=== PATIENT | female | born 1990 | race Caucasian/White ===

== ENCOUNTER 2021-10-11 08:10 | Emergency (ER) | payer BC, SELFPAY ==
--- NOTE | ~2021-10-11 | CT_ITS ---
EXAMINATION: CT abdomen pelvis w con DATE: 10/11/2021 09:57 INDICATION: Abdominal pain. TECHNIQUE: Computed tomography (CT) of the abdomen and pelvis was performed with 100 mL Omnipaque 350 intravenous contrast. Automated exposure control and iterative reconstruction technique were employe d. The dose-length product was 317.20 mGy-cm. COMPARISON: None. FINDINGS: The visualized portions of the lung bases demonstrate minimal atelectasis on the left. No p leural effusion. The heart size is normal. No pericardial effusion. The liver, gallbladder, spleen, p ancreas, adrenal glands, and kidneys are normal. There are no dilated loops of bowel. The appendix is normal. There are no pathologically enlarged lymph nodes. There is physiologic fluid in the pelvis. There is a 3.4 cm cyst in right ovary, likely a follicular cyst. The bones are unremarkable. IMPRESSION: 1. 3.4 cm cyst in right ovary, likely a follicular cyst. Reviewed, dictated and finalized at location B.
[2021-10-11 08:15] VITALS: BP 156/105; PULSE 83; RESP 18; TEMP 37; O2SAT 100
--- NOTE | 2021-10-11 08:26 | ED.NAVMDI ---
HPI - Nausea/Vomiting/Diarrhea General Chief complaint: Nausea/Vomiting/Diarrhea Stated complaint: n/v/d Time Seen by Provider: 10/11/21 08:13 Source: RN notes reviewed History of Present Illness HPI Narrative: Patient presents to emergency department from home for nausea vomiting. Patient is for the past week she has been having numerous episodes of nausea vomiting she states these normally occur between 11 PM and 6 AM in the morning and she is vomiting 3-4 times a day states is associated with epigastric abdominal pain described as aching and burning patient states that she is frequently throwing up what she describes as bright red blood she denies any fevers or chills chest pain, shortness of breath diarrhea or any other symptoms. Related Data Allergies Allergy/AdvReac Type Severity Reaction Status Date / Time No Known Allergies Allergy Mild Verified 10/11/21 08:22 Review of Systems Review of Systems: Gen.: Denies fevers or chills ENT: Denies congestion Respiratory: Denies shortness of breath or cough CV: Denies chest pain or palpitations GI: See HPI Musculoskeletal: Denies back pain or muscle pain Neuro: Denies numbness, tingling, weakness or focal weakness Skin: Denies rash Except as documented, all other systems reviewed and negative PMFSH Past Medical History Medical History (Updated 10/11/21 @ 11:39 by Rubin Whitten DO) Patient denies significant medical history Social History Social History (Updated 10/11/21 @ 08:28 by Rubin Whitten DO) Smoking status: Never smoker Exam Narrative: APPEARANCE: No acute distress, nontoxic, resting in bed HEENT: Normocephalic, atraumatic, OMM RESPIRATORY: No respiratory distress, clear to auscultation bilaterally with no rhonchi wheezing or rales CARDIOVASCULAR: RRR s murmur ABDOMINAL: Soft nondistended tender palpation epigastric and right upper quadrant left upper quadrant no tenderness right lower quadrant left lower quadrant no rebound or guarding Rectal: No hemorrhoids or fissures no active bleeding soft light brown stool that is Hemoccult negative MUSCULOSKELETAl: Moves all extremities. No clubbing, cyanosis or edema. NEURO: Awake and alert. Following commands, speech normal, no focal deficits SKIN:: Warm, dry. Normal Color PSYCHIATRIC: Normal affect/mood Course Course Emergency Course: Patient states symptoms are improved with GI cocktail Dr. Bowles agrees with plan for discharge with follow-up as an outpatient with plan for EGD Patient states that they are feeling much better at this time. States abdominal pain has resolved. Repeat abdominal exam shows the patient's abdomen to be soft and nontender. Discussed with patient results of workup and diagnosis. Discussed need for follow-up with primary care physician, reasons to return to the emergency department in proper use of medication. Patient understands and agrees to current treatment plan discussed with patient right ovarian cyst we will follow-up with her VP DATA Vital Signs Vital signs: Vital Signs Temperature 98.6 F 10/11/21 08:15 Pulse Rate 83 10/11/21 08:15 Respiratory Rate 18 10/11/21 08:15 Blood Pressure 156/105 H 10/11/21 08:15 Pulse Oximetry 100 10/11/21 08:15 Temperature 97.6 F 10/11/21 10:09 Pulse Rate 65 10/11/21 10:09 Respiratory Rate 18 10/11/21 10:09 Blood Pressure 121/91 H 10/11/21 10:09 Pulse Oximetry 100 10/11/21 10:09 MDM - Nausea/Vomiting/Diarrhea MDM Narrative Medical decision making narrative: Patient's abdomen is soft without significant pain or signs of surgical abdomen on serial exams. Lab and x-ray evaluations are reviewed and patient is felt to be a reasonable candidate for outpatient management. Patient was instructed as to limitations of x-ray and laboratory evaluation and encouraged to return to ED or primary physician for repeat exam in 12 hours if continued or worsening pain patient with questionable blood in emesis for the past 1 week
[2021-10-11] MEDS: ONDANSETRON INJ 4 MG/2 ML VIAL IV PUSH (08:42)
[2021-10-11] MEDS: SODIUM CHLORIDE 0.9% IV 1,000 ML 999 ML IV CONT (08:42)
[2021-10-11 08:58] LABS: Basophils Percent Auto 0.5 % (0.2-1.2); Eosinophils Absolute Auto 0.1 K/mm3 (0-0.3); Eosinophils Percent Auto 1.9 % (0-4.4); Hematocrit 42.2 % (37.0-47.0); Hemoglobin 13.7 g/dL (12.0-15.0); Immature Granulocyte Absolute 0.01 K/mm3 (0.00-0.031); Immature Granulocyte Percent A 0.2 % (0-0.5); Lymphocytes Percent Auto 25.6 % (18.3-44.2); Mean Corpuscular HGB Conc 32.5 g/dl (32-36); Mean Corpuscular Hemoglobin 32.5 pg (26-34); Mean Corpuscular Volume 100.2 fl (80-100); Monocytes Absolute Auto 0.5 K/mm3 (0.1-0.6); Monocytes Percent Auto 7.8 % (2.6-8.5); Neutrophils Absolute Auto 3.8 K/mm3 (1.3-6.7); Platelet Count Result 309 k/mm3 (150-375); Red Blood Count 4.21 M/mm3 (4.2-5.4); Red Cell Distribution Width 14.1 % (11.5-14.5); White Blood Count 5.9 K/mm3 (4.5-10.0)
[2021-10-11 09:00] LABS: Appearance Urine Clear (Clear); Bilirubin Urine 1+ (Negative); Blood Urine 1+ (Negative); Color Urine Yellow (Yellow); Glucose Urine UA Negative (Negative); Ketones Urine 1+ mg/dL (Negative); Leukocyte Esterase Ur Negative LEU/UL (Negative); Nitrate Urine Negative (Negative); Protein Urine Trace mg/dL (Negative); Specific Grav Ur >= 1.030 (1.001-1.035); Urobilinogen Urine 0.2 mg/dL (<2.0)
[2021-10-11 09:02] LABS: Mucus Urine Heavy /lpf; Squamous Epithelial Cell Urine Many /hpf (Few)
[2021-10-11 09:10] LABS: Alanine Aminotransferase 22 U/L (4-35); Albumin Level 4.2 g/dL (3.5-5.1); Alkaline Phosphatase 62 U/L (38-126); Anion Gap 6 mmol/L (8-16); Aspartate Amino Transferase 50 U/L (14-36); Bilirubin,Total 1.8 mg/dL (0.2-1.3); Blood Urea Nitrogen 11 mg/dL (7-17); Calcium 8.6 mg/dL (8.4-10.2); Carbon Dioxide 25 mmol/L (22-30); Chloride 104 mmol/L (98-107); Estimated CRCL calculation 129 ml/min; Estimated Glomerular Filt Rate > 60; Glucose 100 mg/dL (65-110); Lipase 33 U/L (23-300); Sodium 135 mmol/L (137-145)
[2021-10-11 09:17] LABS: Add Urine Microscopic? YES
[2021-10-11 09:38] LABS: Prothrombin Time 13.2 Seconds (11.1-14.7)
[2021-10-11 09:39] LABS: Partial Thromboplastin Time 29.3 SECONDS (22.3-36.8)
[2021-10-11 10:09] VITALS: BP 121/91; PULSE 65; RESP 18; TEMP 36.4; O2SAT 100
[2021-10-11] MEDS: PANTOPRAZOLE SODIUM IV 40 MG VIAL IV PUSH (10:49)
[2021-10-11] MEDS: POTASSIUM CHLORIDE 20 MEQ TABLET 40 MEQ PO (11:41)
[2021-10-11 11:49] VITALS: BP 130/103; PULSE 81; RESP 18; O2SAT 100
== END 2021-10-11 11:51 | disposition home or self-care (01) ==
PROVIDERS: Emergency Provider Emergency Medicine
DX: N83.201 Unspecified ovarian cyst, right side (principal); R10.13 Epigastric pain
CPT/HCPCS: 36415; 74177; 80053; 81001; 81025; 83690; 85025; 85610; 85730; 86850; 86900; 86901; 96361; 96374; 96375; 99284; A9270; C9113; J2405; J7030; Q9967

== ENCOUNTER 2021-12-15 01:58 | Day surgery (SDC) | payer BC, SELFPAY ==
[2021-11-30 15:45] VITALS: BMI 26.9
[2021-12-15 07:15] VITALS: BP 123/82; PULSE 83; RESP 18; TEMP 36.4; O2SAT 100
[2021-12-15] MEDS: LACTATED RINGERS 1,000 ML 150 ML IV CONT (07:27)
--- NOTE | 2021-12-15 07:37 | P.PNAN_ITS ---
Anes - Initial Pre Proc Eval Procedure: Operation Date: 12/15/21 08:30 Proposed Procedures p Esophagogastroduodenoscopy - Hamzah Sherman MD Date/Time: 12/15/21 07:37 Surgeon: Hamzah Sherman MD Pre Op Diagnosis: nausea, vomiting Patient Data Age: 31 Gender: F Height: 1.7 m Weight: 81.2 kg Last Vital Signs Temp 36.4 C L 12/15/21 07:15 Pulse 83 12/15/21 07:15 Resp 18 12/15/21 07:15 BP 123/82 12/15/21 07:15 Pulse Ox 100 12/15/21 07:15 O2 Del Method Room Air 12/15/21 07:15 Allergies Allergy/AdvReac Type Severity Reaction Status Date / Time No Known Allergies Allergy Mild Verified 12/15/21 07:13 Home Medications Medication Instructions Recorded Confirmed Type ondansetron 4 mg disintegrating 4 mg PO Q6H PRN nausea and 10/11/21 11/30/21 Rx tablet vomiting #10 tabs pantoprazole 40 mg tablet,delayed 40 mg PO HS #20 tabs 10/11/21 11/30/21 Rx release (Protonix) Patient hx anesthesia problems: none Family hx anesthesia problems: none Results Review: All pre-operative results and documents have been reviewed as part of the pre- operative evaluation. [facility] Past Medical History Medical History (Updated 11/18/21 @ 10:06 by Hamzah Sherman MD) Bloody emesis Marijuana smoker Nausea and vomiting in adult Patient denies significant medical history Social History Social History (Updated 11/18/21 @ 09:41 by Mervat Quesada CMA) Smoking packs per day: 0.5 Smoking cigarettes per day: 10.0 Smoking status: Light tobacco smoker Tobacco type: cigarettes Alcohol intake: current Alcohol use details: socially Substance use: current Substance use type: marijuana Other substance usage details: twice a day Living arrangements: with family Spiritual care concerns: No Anes - Eval Final PreProcedure Day of Procedure 12/15/21 07:37 Patient weight: overweight Heart: regular rate and rhythm Lungs: clear to auscultation and normal air movement Airway: Mallampati scale class II Neurological: alert and oriented Last oral intake: >/= 8 hours ASA classification: II Emergent: no Anesthetic plan: proceed Anesthesia type and monitoring: general GIVS Results Review: All pre-operative results and documents have been reviewed as part of the pre-o perative evaluation. Informed Consent: The patient's anesthetic plan and its attendant risks and benefits were discussed with the patient/family/POA. Questions were solicited and answers provided to the satisfaction of the patient/family/POA.
--- NOTE | 2021-12-15 08:29 | WPDHPUPDATE1 ---
History and Physical Update Update Date/Time: 12/15/21 08:29 History and Physical has been reviewed, including an updated exam of the patient. There are NO changes in the patient's condition. Risks, benefits, and alternatives have been discussed and questions answered. Patient agrees to proceed with procedure.
[2021-12-15] MEDS: BENZOCAINE (*SP) 60 ML SPRAY CAN (HURRICAINE) 1 SPRAY MUCOUS MEM (08:33)
[2021-12-15 08:46] VITALS: BP 109/74; PULSE 69; RESP 19; O2SAT 100
[2021-12-15 08:56] VITALS: BP 113/80; PULSE 67; RESP 19; O2SAT 100
[2021-12-15 09:06] VITALS: BP 126/90; PULSE 62; RESP 22; O2SAT 100
== END 2021-12-15 09:12 | disposition home or self-care (01) ==
PROVIDERS: Visit Provider Internal Medicine Gastroenterology
PROC: 0DJ08ZZ Inspection of Upper Intestinal Tract, Via Natural or Artificial Opening Endoscopic (ICD-10-PCS; CPT 43235; principal; 2021-12-15 08:30)
DX: K29.50 Unspecified chronic gastritis without bleeding (principal); F17.210 Nicotine dependence, cigarettes, uncomplicated; F12.90 Cannabis use, unspecified, uncomplicated
CPT/HCPCS: 43239; 88305; J2001; J2704; J7120

== ENCOUNTER 2023-03-16 12:28 | Emergency (ER) | payer BC, SELFPAY ==
[2023-03-16 12:44] VITALS: BP 132/85; PULSE 88; RESP 16; TEMP 36.6; O2SAT 100
--- NOTE | 2023-03-16 14:04 | ED.FEMALEGU ---
HPI - Female Genitourinary General Chief complaint: Urogenital-Female Stated complaint: UTI Time Seen by Provider: 03/16/23 13:50 Source: patient Mode of arrival: ambulatory Limitations: no limitations History of Present Illness HPI Narrative: 33 year old female who presents to [facility] care with complaints of 2.5 weeks urinary tract infection symptoms which include CVA discomfort, urinary pressure has been incontinent X2, never had urinary tract infection before. patient reports that she has not had a fever,chill or sweats, denies any present nausea or vomiting or diarrhea.Patient has not taken any OTC medications for her complaints. MD elicited complaint: dysuria, UTI and back pain Onset (ago): week(s) (2.5) Location of symptoms: perineum Severity: mild Quality of pain: other (pressure) Vaginal discharge: none Vaginal bleeding: none Treatment prior to arrival: none Related Data Allergies Allergy/AdvReac Type Severity Reaction Status Date / Time No Known Allergies Allergy Mild Verified 03/16/23 14:12 Review of Systems Review of Systems: CONSTITUTIONAL: Denies fever, chills, or sweats. CARDIOVASCULAR: Denies chest pain, palpitations, or edema. RESPIRATORY: Denies cough or dyspnea. GASTROINTESTINAL: Denies abdominal pain, nausea, vomiting, or diarrhea. GENITOURINARY: Reports dysuria, frequency, urgency. reports flank pain no hematuria. SKIN: Denies rash or itching. MUSCULOSKELETAL: Denies back pain or myalgia. reports CVA tenderness NEUROLOGIC: Denies headache All systems reviewed & are unremarkable except as noted in HPI and below PMFSH Past Medical History Medical History Bloody emesis Marijuana smoker Nausea and vomiting in adult Patient denies significant medical history Social History Social History Smoking packs per day: 0.5 Smoking cigarettes per day: 10.0 Smoking status: Light tobacco smoker Tobacco type: cigarettes Alcohol intake: current Alcohol use details: socially Substance use: current Substance use type: marijuana Other substance usage details: twice a day Living arrangements: with family Spiritual care concerns: No Comments At time of signature, agree with nursing past medical, surgical, social and family history. There is no relevant family history pertinent to the presenting complaint Exam Narrative: GENERAL: Well-appearing, well-nourished, and in no acute distress. HEAD: Normocephalic, atraumatic. NECK: Supple. no lymphadenopathy CHEST: Clear to auscultation. No respiratory distress. HEART: Regular rate and rhythm. No murmur heard. Normal peripheral pulses. ABDOMEN: Soft, nontender, nondistended, normal active bowel sounds. positive CVA tenderness positive for dysuria and urgency with some frequency of urination EXTREMITIES: Normal range of motion. No edema. SKIN: Warm, dry, no rash. NEURO: No focal deficits. Alert and oriented x3. Course Course Emergency Course: Patient is aware of diagnosis, understands and agrees to treatment plan.? Anticipatory guidance given.? Patient agrees to follow-up as directed and is aware of reasons to seek care at the emergency department. Portions of this record may have been created with voice recognition software Level of Care: Express Care Visit Vital Signs Vital signs: Vital Signs Temperature 36.6 C 03/16/23 12:44 Pulse Rate 88 03/16/23 12:44 Respiratory Rate 16 03/16/23 12:44 Blood Pressure 132/85 03/16/23 12:44 Pulse Oximetry 100 03/16/23 12:44 Oxygen Delivery Room Air 03/16/23 12:44 Temperature 36.6 C 03/16/23 12:44 Pulse Rate 88 03/16/23 12:44 Respiratory Rate 16 03/16/23 12:44 Blood Pressure 132/85 03/16/23 12:44 Pulse Oximetry 100 03/16/23 12:44 Oxygen Delivery Room Air 03/16/23 12:44 MDM - Female Genitourinary MDM Narrative Medical decision making
== END 2023-03-16 14:15 | disposition home or self-care (01) ==
PROVIDERS: Emergency Provider Registered Nurse
DX: N39.0 Urinary tract infection, site not specified (principal); F17.210 Nicotine dependence, cigarettes, uncomplicated
CPT/HCPCS: 81003; 81025; 87086; 87088; 99213; G0463

== ENCOUNTER 2023-06-17 15:02 | Emergency (ER) | payer BC, SELFPAY ==
[2023-06-17 15:19] VITALS: BP 147/101; PULSE 65; RESP 16; TEMP 36.2; O2SAT 100
--- NOTE | 2023-06-17 15:34 | ED.GENADULT ---
HPI - General Adult General Chief complaint: Nausea/Vomiting/Diarrhea Stated complaint: SOB/Vomiting Time Seen by Provider: 06/17/23 15:34 Source: patient, RN notes reviewed and old records reviewed Mode of arrival: ambulatory Limitations: no limitations History of Present Illness HPI narrative: 33-year-old female presents to the [facility] with vague symptoms of shortness of breath that started when she woke up this morning. nausea, intermittent facial numbness that started about an hour prior to arrival. Patient is denying any symptoms currently. States that she does smoke marijuana. Denies any other drug use Denies urinary symptoms Denies chest pain or abdominal pain has vomited once in clinic Onset (ago): day(s) (1) Related Data Home Medications Medication Instructions Recorded Confirmed No Home Medications 06/17/23 06/17/23 Allergies Allergy/AdvReac Type Severity Reaction Status Date / Time No Known Allergies Allergy Mild Verified 06/17/23 15:14 Review of Systems Review of Systems: All systems reviewed & are unremarkable except as noted in HPI and below Constitutional: Constitutional: Reports no additional constitutional complaints Eyes: Eyes: Reports no additional eye complaints ENT: Reports system reviewed and no additional complaints, except as documented Cardiovascular: Cardiovascular: Reports no additional cardiovascular complaints, Denies chest pain and Denies dyspnea Respiratory: Respiratory: Reports as per HPI, Denies chest congestion, Denies cough and Reports dyspnea Gastrointestinal: Gastrointestinal: Reports no additional gastrointestinal complaints, Denies abdominal pain, Denies nausea and Denies vomiting Musculoskeletal: Musculoskeletal: Reports no additional musculoskeletal complaints Integumentary/Breasts: Skin/Breast: Reports system reviewed and no additional complaints, except as docu Neurologic: Reports as per HPI Psychiatric: Psychiatric: Reports no additional psychiatric complaints Allergic/Immunologic: Allergic/Immunologic: Reports no additional allergic/immunologic complaints [facility] Past Medical History Medical History Bloody emesis Marijuana smoker Nausea and vomiting in adult Patient denies significant medical history Social History Social History Smoking packs per day: 0.5 Smoking cigarettes per day: 10.0 Smoking status: Light tobacco smoker Tobacco type: cigarettes Alcohol intake: current Alcohol use details: socially Substance use: current Substance use type: marijuana Other substance usage details: twice a day Living arrangements: with family Spiritual care concerns: No Comments At the time of my signature, I reviewed and agree with the nursing past medical, surgical, social, and family history. There is no relevant family history pertinent to the patient complaint. Exam Const: General: cooperative, healthy appearing, comfortable, no acute distress, well developed, alert and well nourished Nutritional Appearance: well nourished Orientation/consciousness: patient oriented x3 Limitations: no limitations HENMT: Head: normal to inspection Ears: hearing grossly normal bilaterally, external ears normal, TM's normal bilaterally, EAC's normal, mastoids normal and no periauricular adenopathy Face/Nose/Sinus: Normal external nose present, Normal nares present, Normal nasal mucous membranes and turbinates present, normal facial exam and face symmetric Face and sinus: normal facial exam, sinuses nontender and face symmetric Mouth: Yes Normal oral and palatal mucosa present, Yes lip normal and Yes moist mucous membranes Teeth and gingiva: poor dentition Throat: posterior oropharynx normal and uvula midline Eyes: General: appearance normal, both eyes and all related structures Alignment and Position: alignment normal Periorbital: periorbit
== END 2023-06-17 15:50 | disposition home or self-care (01) ==
PROVIDERS: Emergency Provider Nurse Practitioner
DX: R06.00 Dyspnea, unspecified (principal); F17.210 Nicotine dependence, cigarettes, uncomplicated; Z20.822 Contact with and (suspected) exposure to COVID-19
CPT/HCPCS: 81025; 87426; 87804; 99213; C9803; G0463

== ENCOUNTER 2023-07-24 17:18 | Emergency (ER) | payer BC, SELFPAY ==
--- NOTE | ~2023-07-24 | US_ITS ---
Pelvic ultrasound. Clinical History: Pain Technique: Realtime transabdominal and transvaginal scanning of the pelvis was performed. Color flow Doppler and Doppler spectral analysis were performed. Findings: The uterus is anteverted. The endometrial stripe has a thickness of 5 mm. No focal mass is identified. The right ovary measures 5.1 x 3.1 x 4.3 cm. No significant right ovarian or adnexal mass is seen. The left ovary measures 3.3 x 2.1 x 2.2 cm. No significant left ovarian or adnexal mass is seen. Vascular flow present in both ovaries. There is no evidence of free fluid in the cul de sac. Impression: No significant abnormality seen. Reviewed, dictated and finalized at [facility]. PROCESS ENGINEER Impression: No significant abnormality seen.
--- NOTE | ~2023-07-24 | CT_ITS ---
EXAMINATION: CT abdomen pelvis w con DATE: 07/24/2023 22:28 INDICATION: abdominal pain TECHNIQUE: Computed tomography (CT) of the abdomen and pelvis was performed with 100 mL Omnipaque-350 intravenous contrast. Automated exposure control and iterative reconstruction technique were employe d. The dose-length product was 575.51 mGy-cm. COMPARISON: 10/11/2021. FINDINGS: Lower thorax: Unremarkable Liver: Normal. Biliary/Gallbladder: Gallbladder is normal. No bile duct dilation. Pancreas: No mass or duct dilation. Spleen: Normal. Adrenals:No mass. Kidneys: No suspicious mass, obstructing stone, or hydronephrosis. GI tract: Mild distal esophageal and gastric wall edema. Wall thickening in the proximal small bowel. No small or large bowel dilation. Mildly dilated appendix, which is a chronic finding, no surroundin g inflammatory change. Submucosal fat deposition in the colon. Mesentery/Peritoneum: No ascites, mass, or free air. Retroperitoneum: No mass. Pelvis: Mild urinary bladder wall thickening in a partially distended bladder. Probably simple 1.7 an d 1.5 cm right ovarian cysts or follicles. Mild right ovarian enlargement, no twisting of the vascula r pedicle. 3.0 cm simple cystic mass adjacent to the right ovary may represent ovarian cyst or paraov madelyn cyst. Elongated appearing left ovary without evidence of torsion. Trace pelvic fluid. Likely na bothian cysts in the normal-appearing uterus. Soft Tissues: Soft tissues and body wall unremarkable. Bones: No acute osseous finding. IMPRESSION: Mild esophagitis/gastritis. Proximal small bowel wall thickening may reflect a component of enteritis. Colonic submucosal fat as can be seen with chronic IBD, obesity, chemotherapy treatment, and celiac d isease. 3 cm right ovarian or paraovarian cyst. Multiple additional right ovarian cysts. No CT evidence of to rsion. Consider pelvic sonography if there are acute signs/symptoms referring to the pelvis. Cystitis versus urinary bladder wall thickening from incomplete distention. Correlate with urinalysis Reviewed, dictated and finalized at location K. RMATICS COORDINATOR IMPRESSION: Mild esophagitis/gastritis. Proximal small bowel wall thickening may reflect a component of enteritis. Colonic submucosal fat as can be seen with chronic IBD, obesity, chemotherapy t reatment, and celiac disease. 3 cm right ovarian or paraovarian cyst. Multiple additional right ovarian cysts . No CT evidence of torsion. Consider pelvic sonography if there are acute sign s/symptoms referring to the pelvis. Cystitis versus urinary bladder wall thickening from incomplete distention. Cor relate with urinalysis
[2023-07-24 17:36] VITALS: BP 149/87; PULSE 100; RESP 18; TEMP 36.6; O2SAT 100
--- NOTE | 2023-07-24 17:40 | ED.GENADULT ---
HPI - General Adult General Chief complaint: Abdominal Pain <Lorena Marcus October, Last Filed: 08/01/23 20:20> Stated complaint: abd pain <Lorean Marcus October, Last Filed: 08/01/23 20:20> Time Seen by Provider: 07/24/23 22:44 <Lorena Marcus October, - Last Filed: 08/01/23 20:20> History of Present Illness HPI narrative: Focused HPI: [address] is a 33 y/o female who presents with reports of having lower abdominal pain that started last night/ she states that she had a fever today pain has been getting worse/ Denies nausea/vomiting LMP Jun 30 Denies dysuria or changes to bowels. GENERAL: Well-appearing, well-nourished, and in no acute distress. HEAD: Normocephalic, atraumatic. CHEST: Clear to auscultation. ?No respiratory distress. HEART: Regular rate and rhythm.? NEURO: ?Alert and oriented x3. Patient screened in triage and initial orders placed.? ?Additional care and disposition to be based upon?diagnostic testing and treatment. <Lorena Marcus October, Last Filed: 08/01/23 20:20> Related Data Allergies/adverse reactions: Allergies Allergy/AdvReac Type Severity Reaction Status Date / Time No Known Allergies Allergy Mild Verified 07/24/23 17:19 <Lorena Marcus October, - Last Filed: 08/01/23 20:20> Review of Systems Review of Systems: All systems reviewed & are unremarkable except as noted in HPI and below <Lorena Marcus October, - Last Filed: 08/01/23 20:20> PMFSH Past Medical History Medical History: Medical History Bloody emesis Marijuana smoker Nausea and vomiting in adult Patient denies significant medical history <Lorena Marcus October, - Last Filed: 08/01/23 20:20> Social History Social History: Social History Smoking packs per day: 0.5 Smoking cigarettes per day: 10.0 Smoking status: Light tobacco smoker Tobacco type: cigarettes Alcohol intake: current Alcohol use details: socially Substance use: current Substance use type: marijuana Other substance usage details: twice a day Living arrangements: with family Spiritual care concerns: No <Lorena Pacheco, SCHOOL BUS TECHNICIAN - Last Filed: 08/01/23 20:20> Exam Narrative: APPEARANCE: No apparent distress. Head: atraumatic. EYES: EOMI, NOSE: Atraumatic NECK: Trachea midline RESPIRATORY: No increased rate of breathing CARDIOVASCULAR: RRR, ABDOMINAL: Tenderness to palpation right lower quadrant, rest the abdomen is soft with no guarding or rebound MUSCULOSKELETAl: No obvious deformities NEURO: Alert. Moving 4/4 extremities SKIN:: Warm, dry. Normal color PSYCHIATRIC: Normal affect pelvic exam revealed physiologic discharge in the vaginal vault. No cervical motion tenderness or adnexal fullness. <Alejandro Campos MD - Last Filed: 07/25/23 05:19> Course Vital Signs Vital signs: Vital Signs Temperature 36.6 C 07/24/23 17:36 Pulse Rate 100 07/24/23 17:36 Respiratory Rate 18 07/24/23 17:36 Blood Pressure 149/87 H 07/24/23 17:36 Pulse Oximetry 100 07/24/23 17:36 Oxygen Delivery Room Air 07/24/23 17:36 Temperature 36.6 C 07/24/23 17:36 Pulse Rate 92 07/25/23 04:58 Respiratory Rate 15 07/25/23 04:58 Blood Pressure 136/82 07/25/23 04:58 Pulse Oximetry 98 07/25/23 04:58 Oxygen Delivery Room Air 07/24/23 17:36 <Lorena Pacheco, SCHOOL BUS TECHNICIAN - Last Filed: 08/01/23 20:20> Vital Signs Temperature 36.6 C 07/24/23 17:36 Pulse Rate 100 07/24/23 17:36 Respiratory Rate 18 07/24/23 17:36 Blood Pressure 149/87 H 07/24/23 17:36 Pulse Oximetry 100 07/24/23 17:36 Oxygen Delivery Room Air 07/24/23 17:36 Temperature 36.6 C 07/24/23 17:36 Pulse Rate 92 07/25/23 04:58 Respiratory Rate 15 07/25/23 04:58 Blood Pressure 136/82 07/25/23 04:58 Pulse Oximetry 98 07/25/23 04:58 Oxygen Delivery Room Air 07/24/23 17:36 <A
[2023-07-24 21:31] VITALS: BP 133/86; PULSE 106; RESP 18; O2SAT 100
[2023-07-24 21:37] LABS: Basophils Percent Auto 0.3 % (0.2-1.2); Eosinophils Absolute Auto 0.1 K/mm3 (0-0.3); Eosinophils Percent Auto 0.5 % (0-4.4); Hematocrit 41.1 % (37.0-47.0); Hemoglobin 13.7 g/dL (12.0-15.0); Immature Granulocyte Absolute 0.04 K/mm3 (0.00-0.031); Immature Granulocyte Percent A 0.4 % (0-0.5); Lymphocytes Percent Auto 13.7 % (18.3-44.2); Mean Corpuscular HGB Conc 33.3 g/dl (32-36); Mean Corpuscular Hemoglobin 34.7 pg (26-34); Mean Corpuscular Volume 104.1 fl (80-100); Mean Platelet Volume 9.2 fl (7.4-10.4); Monocytes Absolute Auto 0.8 K/mm3 (0.1-0.6); Monocytes Percent Auto 7.2 % (2.6-8.5); Neutrophils Absolute Auto 8.6 K/mm3 (1.3-6.7); Neutrophils Percent Auto 77.9 % (45.5-73.1); Platelet Count Result 318 k/mm3 (150-375); Red Blood Count 3.95 M/mm3 (4.2-5.4); Red Cell Distribution Width 14.4 % (11.5-14.5)
[2023-07-24 21:41] LABS: Appearance Urine Clear (Clear); Bacteria Urine None Seen /hpf; Bilirubin Urine Negative (Negative); Blood Urine 1+ (Negative); Color Urine Yellow (Yellow); Glucose Urine UA Negative (Negative); Ketones Urine Trace mg/dL (Negative); Leukocyte Esterase Ur 1+ LEU/UL (Negative); Nitrate Urine Negative (Negative); Non Pathogenic Casts 0-2; Protein Urine 1+ mg/dL (Negative); Specific Grav Ur 1.019 (1.001-1.035); Squamous Epithelial Cell Urine Few /hpf (Few)
[2023-07-24 21:44] LABS: Add Urine Microscopic? YES
[2023-07-24 22:11] LABS: Alanine Aminotransferase 87 U/L (6-35); Albumin Level 4.6 g/dL (3.5-5.1); Alkaline Phosphatase 89 U/L (38-126); Anion Gap 9 mmol/L (8-16); Aspartate Amino Transferase 57 U/L (14-36); Bilirubin,Total 1.5 mg/dL (0.2-1.3); Blood Urea Nitrogen 8 mg/dL (7-17); Calcium 9.5 mg/dL (8.4-10.2); Carbon Dioxide 30 mmol/L (22-30); Chloride 101 mmol/L (98-107); Estimated CRCL calculation 128 ml/min; Estimated Glomerular Filt Rate > 60; Glucose 114 mg/dL (65-110); Potassium 3.5 mmol/L (3.4-5.0); Sodium 140 mmol/L (137-145)
[2023-07-25] MEDS: KETOROLAC 15 MG/ML VIAL (*BKC) IV PUSH (02:01)
[2023-07-25] MEDS: SODIUM CHLORIDE 0.9% IV 1,000 ML 999 ML IV CONT (02:02)
[2023-07-25 03:29] LABS: Trichomonas Vag PCR NOT DETECTED (NOT DETECTE)
[2023-07-25 03:51] LABS: Chlamydia trachomatis NOT DETECTED (NOT DETECTE); Neisseria gonorrhoeae PCR NOT DETECTED (NOT DETECTE)
[2023-07-25 04:58] VITALS: BP 136/82; PULSE 92; RESP 15; O2SAT 98
== END 2023-07-25 04:59 | disposition home or self-care (01) ==
PROVIDERS: Nurse Practitioner Family; Emergency Provider Emergency Medicine
DX: N83.201 Unspecified ovarian cyst, right side (principal); F17.210 Nicotine dependence, cigarettes, uncomplicated
CPT/HCPCS: 36415; 74177; 76830; 76856; 80053; 81001; 81025; 85025; 87070; 87086; 87491; 87591; 87661; 96361; 96374; 99284; J1885; J7030; Q9967

== ENCOUNTER 2024-06-16 15:05 | Emergency (ER) | payer BC, SELFPAY ==
[2024-06-16 15:09] VITALS: BP 139/103; PULSE 110; RESP 20; TEMP 36.3; O2SAT 99
--- NOTE | 2024-06-16 15:26 | ED.NAVMDI ---
HPI - Nausea/Vomiting/Diarrhea General Chief complaint: Nausea/Vomiting/Diarrhea Stated complaint: Vomiting/Loss Of Appetite Time Seen by Provider: 06/16/24 15:28 Source: patient and RN notes reviewed Mode of arrival: ambulatory Limitations: no limitations History of Present Illness HPI Narrative: 34-year-old female presented for complaint of nausea and vomiting, subjective fever. Onset yesterday. [place] weakness at onset. Has been able to tolerate water today but has continued to have emesis. Did not eat todayl last ate 2 days ago. LMP 9 days ago. Denies Abdominal pain, cough, shortness of breath, hematochezia, melena, hematemesis. Drinks 1/2 pint alcohol daily. Related Data Allergies Allergy/AdvReac Type Severity Reaction Status Date / Time No Known Allergies Allergy Mild Verified 06/16/24 15:07 Review of Systems Review of Systems: CONSTITUTIONAL: reports body aches, fever, chills ENT: Denies rhinorrhea, congestion CARDIOVASCULAR: Denies chest pain, palpitations, or edema. RESPIRATORY: Denies cough or dyspnea. GASTROINTESTINAL: Endorses nausea, vomiting, Denies abdominal pain, diarrhea, hematochezia, melena, hematemesis GENITOURINARY: Denies dysuria, hematuria, or CVA tenderness. SKIN: Denies rash MUSCULOSKELETAL: Denies back pain, joint pain NEUROLOGIC: Denies headache, numbness, tingling, or weakness. All systems reviewed & are unremarkable except as noted in HPI and below PMFSH Past Medical History Medical History Marijuana smoker Bloody emesis Nausea and vomiting in adult Patient denies significant medical history Social History Social History (Updated 06/16/24 @ 16:03 by Teresa Sexton APRN) Smoking packs per day: 0.5 Smoking cigarettes per day: 10.0 Smoking status: Light tobacco smoker Tobacco type: cigarettes Alcohol intake: current Alcohol use details: 1/2 pint daily Substance use: current Substance use type: marijuana Other substance usage details: twice a day Living arrangements: with family Spiritual care concerns: No Comments At time of signature, I have reviewed and agree with nursing past medical, surgical, social and family history unless otherwise noted. Please see nursing chart for further information. There is no relevant family history pertinent to the presenting complaint Exam Narrative: GENERAL: well-appearing, and in no acute distress. EYES: EOMI. Conjunctivae normal. ENT: Mucous membranes pink and moist. CHEST: No respiratory distress. Clear to auscultation. HEART: Regular rate and rhythm. No murmur appreciated. Normal peripheral pulses. ABDOMEN: abd soft, nondistended, normal active bowel sounds. Mildly Tender abdomen to epigastric: No guarding, rebound tenderness, asymmetry EXTREMITIES: Normal range of motion. SKIN: Warm, dry, no rash. Capillary refill normal. Normal skin turgor. NEURO: No focal deficits. Alert and oriented x3. PSYCH: Normal affect. Course Course Emergency Course: Patient is aware of diagnosis, understands and agrees to treatment plan. Anticipatory guidance given. Patient agrees to follow-up as directed and is aware of reasons to seek care at the emergency department. Portions of this record may have been created with voice recognition software Level of Care: Express Care Visit Vital Signs Vital signs: Vital Signs Temperature 97.4 F L 06/16/24 15:09 Pulse Rate 110 H 06/16/24 15:09 Respiratory Rate 20 06/16/24 15:09 Blood Pressure 139/103 H 06/16/24 15:09 Pulse Oximetry 99 06/16/24 15:09 Oxygen Delivery Room Air 06/16/24 15:09 Temperature 97.4 F L 06/16/24 15:09 Pulse Rate 110 H 06/16/24 15:09 Respiratory Rate 20 06/16/24 15:09 Blood Pressure 139/103 H 06/16/24 15:09 Pulse Oximetry 99 06/16/24 15:09 Oxygen Delivery Room Air 06/16/24 15:09 MDM - Nausea/Vomiting/Diarrhea MDM Narrative Medical decision making narrative: flu and COVID negative. Urine negative. Results of urine reviewed with patient; will culture. She is advised ER transfer for further evaluation and IV fluids, however she declines at this time and would like to go home and try ondansetron and clear liquid diet. She is aware of possible etiologies and will go to the emergency room if symptoms do not improve. Differential Diagnosis Differential diagnosis: Likely food poisoning, gastroenteritis, drug-induced nausea and vomiting and dehydration Lab Data Labs: Lab Results 06/16/24 Range/Units 15:42 POC Urine Color [place] POC Urine Clarity Cloudy POC Urine pH 6.5 POC Ur Specif [place] 1.030 POC Urine Protein 3+ (Negative) POC Ur Glucose (UA) Negative (Negative) POC Urine Ketones 2+ (Negative) POC Urine Blood 1+ (Negative) POC Urine Nitrite Positive (Negative) POC Urine Bilirubin 2+ (Negative) POC Urine Urobilinogen 1.0 POC U Leukocyte Esteras Negative (Negative) POC Urine HCG, Qual Negative (Negative) POC Influenza A Ag Negative (Negative) POC Influenza B Ag Negative (Negative) POC SARS CoV-2 Ag Negative (Negative) Discharge Plan Discharge Clinical Impression: Nausea and vomiting in adult Patient Disposition: Home, Self-Care Condition: Stable Instructions: Antibiotic Form, Acute Nausea and Vomiting (ED) Additional Instructions: Stay hydrated. Take small sips of fluid containing electrolytes frequently. Clear liquids (broth, jello, tea, sprite, pedialyte) [place] foods (bananas, rice, applesauce, toast, crackers) Avoid fatty, greasy, fried or spicy foods. Limit dairy until symptoms are improved. Take medicine as directed You should go to the ER for worsening symptoms or concerns: l if you experience persistent nausea and vomiting that does not resolve and does not allow you to tolerate any food or fluids, fevers, abdominal pain, persistent diarrhea, dizziness, fainting, or for any other concerns. Follow up with primary care provider in 3 days. Your urine will be sent of for a culture to determine if bacteria is causing your symptoms. If the culture shows a UTI, you will be notified and an antibiotic will be called in for you. Flu and Covid negative. 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
[2024-06-16 15:44] LABS: BEDSIDEPREGUCG Negative (Negative); EDCOVIDSCREEN Negative (Negative); EDUAAPPEAR Cloudy; EDUABILI 2+ (Negative); EDUABLOOD 1+ (Negative); EDUACOLOR1 Pink; EDUAGLUCOSE Negative (Negative); EDUAKETONE 2+ (Negative); EDUALEUKO Negative (Negative); EDUANITRATE Positive (Negative); EDUAPH 6.5; EDUAPROTEIN 3+ (Negative)
[2024-06-16 15:45] LABS: EDINFLUASCREEN Negative (Negative); EDINFLUBSCREEN Negative (Negative)
== END 2024-06-16 16:00 | disposition home or self-care (01) ==
PROVIDERS: Emergency Provider Nurse Practitioner Family
DX: R11.2 Nausea with vomiting, unspecified (principal); Z20.822 Contact with and (suspected) exposure to COVID-19; F17.210 Nicotine dependence, cigarettes, uncomplicated; F12.90 Cannabis use, unspecified, uncomplicated
CPT/HCPCS: 81003; 81025; 87086; 87426; 87804; 99213; G0463

== ENCOUNTER 2024-12-23 23:32 | Observation (INO) | payer BC, SELFPAY ==
--- NOTE | ~2024-12-23 | US_ITS ---
EXAMINATION: US OB <=14 wk fetus w TV DATE: 12/24/2024 08:43 INDICATION: Early of indeterminate location with right-sided abdominal pain TECHNIQUE: Real-time pelvic ultrasound utilizing both a transvaginal and transabdominal probe was pe rformed. The interpreting radiologist was not present for the study. COMPARISON: None. FINDINGS: The uterus measures 7.2 x 3.7 x 4.2 cm. The endometrial complex measures 6 mm in thickness. No evide nt intrauterine gestational sac. A few anechoic nabothian cysts at the cervix measuring up to 6 mm in maximal diameter. The right ovary measures 3.4 x 1.7 x 4.0 cm. The left ovary measures 3.5 x 3.2 x 1.3 cm. There are mu ltiple subcentimeter cysts/follicles at both ovaries. No abnormal masses in either adnexa. There is n o free fluid in the pelvis. IMPRESSION: 1. No evident gestational sac for which differential would include early , failed or ectopic . Recommend follow-up with serial beta hCGs with repeat imaging as clinically ind icated. Reviewed, dictated and finalized at location B. IMPRESSION: 1. No evident gestational sac for which differential would include early pregna ncy, failed or ectopic . Recommend follow-up with serial bet a hCGs with repeat imaging as clinically indicated.
--- NOTE | ~2024-12-23 | CT_ITS ---
Clinical Indication: Shortness of breath, elevated lipase and LFTs CT Scan of the Chest, Abdomen, and Pelvis with Contrast: Technique: Contiguous sections were acquired throughout the chest, abdomen, and pelvis after intraven ous administration of 100 cc of Omnipaque 350. Dose reduction technique was used on this scan by uti lizing automated exposure control and iterative reconstruction technique. The dose-length product (DL P) was 784.11 mGy-cm. Findings: There is no evidence of any significant mediastinal, hilar or axillary lymphadenopathy. The mediastin al soft tissues appear normal. Aberrant right subclavian artery noted. No pulmonary embolus. No aorti c aneurysm or dissection. There is no evidence of pleural or pericardial effusion. The lungs are clear. No pulmonary nodules or infiltrates are noted. There is diffuse hepatic steatosis. The spleen, gallbladder, adrenals and kidneys are within normal l imits. There is minimal edematous/inflammatory change about the pancreatic head, compatible with mild acute pancreatitis. No evidence of aortic aneurysm. No lymphadenopathy. No bowel obstruction or bowel wall thickening. There is no evidence to suggest acute appendicitis. Urinary bladder is unremarkable. No pelvic mass seen. No ascites. Impression: Mild acute pancreatitis about the pancreatic head. Diffuse hepatic steatosis. No other significant findings. Reviewed, dictated and finalized at location . Impression: Mild acute pancreatitis about the pancreatic head. Diffuse hepatic steatosis. No other significant findings.
--- NOTE | ~2024-12-23 | XR_ITS ---
CHEST RADIOGRAPH CLINICAL HISTORY: pancreatitis . COMPARISON: None available TECHNIQUE: Single portable view of the chest. FINDINGS The cardiomediastinal silhouette is unremarkable. The lungs are clear. IMPRESSION: No focal infiltrate or effusion. Reviewed, dictated and finalized at location A.
--- NOTE | ~2024-12-23 | US_ITS ---
EXAMINATION: US abdomen limited DATE: 12/24/2024 08:43 INDICATION: Right-sided abdominal pain and transaminitis TECHNIQUE: Multiple grayscale and Doppler ultrasound images of the abdomen were obtained. COMPARISON: None FINDINGS: The pancreatic head and body are normal in appearance. The pancreatic tail is not visualized. Liver has normal contour, with a smooth surface. There is increased parenchymal echogenicity and coarsened echotexture consistent with diffuse hepatic steatosis. No liver lesion identified. No intrahepatic b iliary duct dilation suspected. Portal venous flow was seen in the hepatopetal, normal direction and has normal Doppler waveform. The gallbladder is normal in appearance. There is no cholelithiasis. Th e common bile duct measures 3 mm, which is normal. Sonographic Hightower sign was reported as negative b y the program architect. Right kidney measures 11.7 x 4.8 x 6.0 cm with normal contour and echogenicity and no hydronephrosis. Visualized portions of the proximal abdominal aorta and inferior vena cava are no rmal. IMPRESSION: 1. Diffuse hepatic steatosis. 2. Normal gallbladder with no cholelithiasis or intra-/extrahepatic biliary ductal dilation. Reviewed, dictated and finalized at location B. IMPRESSION: 1. Diffuse hepatic steatosis. 2. Normal gallbladder with no cholelithiasis or intra-/extrahepatic biliary yinka romeo dilation.
--- OUTSIDE RECORDS SUMMARY | 2024-12-23 23:34 | XMS_ITS | Data Portability ---
[facility] [address] [place] [address] Care Team Providers Care Podiatric Assistant Name Role Phone DEBBINIYAH COLLINS Primary Care Provider Assessment No assessment recorded. Plan of Treatment Reminders Order Date Submit Date Provider Last Modified By Organization Details Last Modified Time Details Appointments None recorded . Lab vaginal pathogen s panel, NELLY+prob e, vaginal fluid 2024 025 DIN[facility], [address], [place], [address], 5 06:52:02 cytology report, thin prep, smear or scraping , cervical or vaginal 2024 025 DINUBA [facility], [address], [place], [address], 5 07:05:58 patholog y study - ECC 2023 024 DINUBA [facility], [address], [place], [address], 4 11:43:59 pregnanc y test, urine 2023 024 [email or web address] In-Office Order, Internal Use Only DO Not Attach Compendium DO Not Attach Compendium, Do Not Delete/merge, [id number] 4 14:47:19 vaginal pathogen s panel, NELLY+prob e, vaginal fluid 2023 024 CAROLINECHERYL French, [address], [place], [address], 4 13:08:29 cytology report, thin prep, smear or scraping , cervical or vaginal 2023 024 CAROLINECHERYL Ca, [address], [place], [address], 4 13:10:39 RPR (rapid plasma reagin), serum 2023 024 CAROLINECHERYL Ca, [address], [place], [address], 4 13:08:30 HIV 1 + 2, meaningf ul use set 2023 024 CAROLINE Ca, [address], [place], [address], 4 13:08:30 PT/PTT, plasma 2019 020 CAROLINE Ca, [address], [place], [address], 0 09:46:56 CMP, serum or plasma 2019 020 CAROLINE Ca, [address], [place], [address], 0 11:50:50 CBC w/ auto diff 2019 020 CAROLINECHERYL Ca, [address], [place], [address], 0 11:50:50 lipid panel, serum 2019 020 CAROLINECHERYL Ca, [address], [place], [address], 0 11:50:49 TSH + free T4, serum 2019 020 CAROLINE [facility], [address], [place], [address], 0 11:50:49 HbA1c (hemoglo bin A1c), blood 2019 020 CAROLINE [facility], [address], [place], [address], 0 11:50:50 Referral gynecolo gic surgery referral 2024 025 [facility], [address] [place], [address], 5 04:19:16 gynecolo gic surgery referral 2024 025 [facility], [address] [facility], [place], [address], 5 04:26:33 gynecolo gic surgery referral 2023 024 [facility], [address] [place], [address], 5 16:11:06 Procedures colposco py (PROC) 2023 024 [email or web address] Not available 4 13:19:47 Surgeries None recorded . Imaging US, pelvis, transabd ominal + transvag inal [address] [facility] (Radiology), [address] [place], [address], 5 11:42:16 Medication Orders ibuprofe n 800 mg tablet 2024 025 [id number], [address] [facility], [place], [place], [id number], 15:54:01 fluconaz ole 150 mg tablet 2023 024 [id number], [address] [facility], [place], [place], [id number], 13:57:45 Patient TargetsNo targets recorded. Patient Instructions Encounter Date Encounter Id Patient Instructions Last Modified By Organization Details Last Modified Time 04/13/2020 [id number] Quitting Tobacco : Care Instructions [email or web address] Not available 04/14/2020 09:47:51 10/06/2023 [id number] body mass index: care instructions Not available 10/06/2023 09:09:19 learning about healthy weight [email or web address] Not available 10/06/2023 09:09:19 --Discussed with Dr. Jocelyne caballero Not available 10/06/2023 14:43:35 08/19/2024 [id number] A healthy lifestyle: care instructions [email or web address] Not available 08/19/2024 15:53:53 medical record request* [email or web address] Not available 08/19/2024 15:53:53 11/04/2024 [id number] A healthy lifestyle: care instructions [email or web address] Not available 11/04/2024 13:02:56 breast self-exam : care instructions Not available 11/04/2024 13:02:56 learning about cervical cancer screening [email or web address] Not available 11/04/2024 13:02:56 --Discussed with Dr. Jocelyne caballero Not available 11/05/2024 14:14:57 Reason for Referral Gynecologic Surgery Referral for Cyst of ovary Referring Physician: [facility], Encounter Date: 10/06/2023 Gynecologic Surgery Referral for Cyst of ovary Referring Physician: [facility], Encounter Date: 08/19/2024 Gynecologic Surgery Referral for Cyst of right ovary Referring Physician: [facility], Encounter Date: 11/04/2024 Results Created Date Observation Date Name Description Value Unit Range Abnormal Flag Note LastModifiedBy Organization Detail LastModifiedTime 11/05/19 21 11/04/2020 Thyro tropi n [Unit s/vol ume] in Serum or Plasm a thyrotropin [units/volum e] in serum or plasma 0.832 text: 0.358 - 3.74 uIU/mL TSH 0.832 0.358 - 3.74 uIU/M L 11/04 12:32 PM CDT [facility] Not Available Not Available 08/19/2024 15:42:39 11/05/19 21 11/04/2020 Tropo ward I.car diac [Mass /volu me] in Serum or Plasm a troponin I.cardiac [mass/volume ] in serum or plasma text: <0.045 NG/mL. TROPO WARD I <0.01 5 <0.04 5 ng/mL . 11/04 12:00 PM CDT [facility] Not Available Not Available 08/19/2024 15:42:39 11/05/19 21 11/04/2020 Compr ehens jeffrey metab olic 1999 panel - Serum or Plasm a glucose [mass/volume ] in serum or plasma 87 text: 70 - 99 mg/dL GLUCO SE 87 70 - 99 MG/DL 11/04 12:00 PM T [facility] Not Available Not Available 08/19/2024 15:42:39 11/05/19 21 11/04/2020 Compr ehens jeffrey metab olic 1999 panel - Serum or Plasm a urea nitrogen [mass/volume ] in serum or plasma 12 text: 7 - 18 mg/dL BUN 12 7 - 18 MG/DL 11/04 12:00 PM CDT [facility] Not Available Not Available 08/19/2024 15:42:39 11/05/19 21 11/04/2020 Compr ehens jeffrey metab olic 1999 panel - Serum or Plasm a creatinine [mass/volume ] in serum or plasma 0.58 text: 0.55 - 1.02 mg/dL CREAT ININE S/P/B 0.58 0.55 - 1.02 MG/DL 11/04 12:00 PM CDT [facility] Not Available Not Available 08/19/2024 15:42:39 11/05/19 21 11/04/2020 Compr ehens jeffrey metab olic 2000 panel - Serum or Plasm a sodium [moles/volum e] in serum or plasma 135 text: 136 - 145 mmol/L low SODIU M S/P/B 135 (L) 136 - 145 MMOL/ L 11/04 12:00 PM CDT [facility] Not Available Not Available 08/19/2024 15:42:39 11/05/19 21 11/04/2020 Compr ehens jeffrey metab olic 2000 panel - Serum or Plasm a potassium [moles/volum e] in serum or plasma 3.8 text: 3.5 - 5.1 mmol/L POTAS SIUM S/P/B 3.8 3.5 - 5.1 MMOL/ L 11/04 12:00 PM CDT [facility] Not Available Not Available 08/19/2024 15:42:39 11/05/19 21 11/04/2020 Compr ehens jeffrey metab olic 2000 panel - Serum or Plasm a chloride [moles/volum e] in serum or plasma 103 text: 100 - 108 mmol/L CHLOR LOY S/P/B 103 100 - 108 MMOL/ L 11/04 12:00 PM CDT [facility] Not Available Not Available 08/19/2024 15:42:39 11/05/19 21 11/04/2020 Compr ehens jeffrey metab olic 2000 panel - Serum or Plasm a carbon dioxide, total [moles/volum e] in serum or plasma 25.6 text: 21 - 32 mmol/L CO2 25.6 21 - 32 MMOL/ L 11/04 12:00 PM CDT [facility] Not Available Not Available 08/19/2024 15:42:39 11/05/19 21 11/04/2020 Compr ehens jeffrey metab olic 2000 panel - Serum or Plasm a calcium [mass/volume ] in serum or plasma 8.8 text: 8.5 - 10.1 mg/dL CALCI UM S/P/B 8.8 8.5 - 10.1 MG/DL 11/04 12:00 PM CDT [facility] Not Available Not Available 08/19/2024 15:42:39 11/05/19 21 11/04/2020 Compr ehens jeffrey metab olic 2000 panel - Serum or Plasm a bilirubin.to jessica [mass/volume ] in serum or plasma 0.6 text: 0.2 - 1.2 mg/dL BILIR UBIN TOTAL S/P/B 0.6 0.2 - 1.2 MG/DL 11/04 12:00 PM CDT [facility] Not Available Not Available 08/19/2024 15:42:39 11/05/19 21 11/04/2020 Compr ehens jeffrey metab olic 2000 panel - Serum or Plasm a protein [mass/volume ] in serum or plasma 7.5 text: 6.4 - 8.2 g/dL TOTAL PROTE IN S/P/B 7.5 6.4 - 8.2 G/DL 11/04 12:00 PM CDT [facility] Not Available Not Available 08/19/2024 15:42:39 11/05/19 21 11/04/2020 Compr ehens jeffrey metab olic 2000 panel - Serum or Plasm a albumin [mass/volume ] in serum or plasma 3.7 text: 3.4 - 5.0 g/dL ALBUM IN S/P/B 3.7 3.4 - 5.0 G/DL 11/04 12:00 PM CDT [facility] Not Available Not Available 08/19/2024 15:42:39 11/05/19 21 11/04/2020 Compr ehens jeffrey metab olic 2000 panel - Serum or Plasm a aspartate aminotransfe rase [enzymatic activity/vol ume] in serum or plasma 19 U/L low: 15U/Lh igh: 37U/L AST 19 15 - 37 U/L 11/04 12:00 PM CDT [facility] Not Available Not Available 08/19/2024 15:42:39 11/05/19 21 11/04/2020 Compr ehens jeffrey metab olic 1999 panel - Serum or Plasm a alanine aminotransfe rase [enzymatic activity/vol ume] in serum or plasma 19 U/L low: 14U/Lh igh: 55U/L ALT 19 14 - 55 U/L 11/04 12:00 PM CDT [facility] Not Available Not Available 08/19/2024 15:42:39 11/05/19 21 11/04/2020 Compr ehens jeffrey metab olic 1999 panel - Serum or Plasm a alkaline phosphatase [enzymatic activity/vol ume] in serum or plasma 53 U/L low: 50U/Lh igh: 136U/L ALKAL INE PHOSP HATAS E S/P/B 53 50 - 136 U/L 11/04 12:00 PM CDT [facility] Not Available Not Available 08/19/2024 15:42:39 11/05/19 21 11/04/2020 Compr ehens jeffrey metab olic 1999 panel - Serum or Plasm a anion gap in serum or plasma 6.4 text: 5 - 15 mmol/L ANION GAP 6.4 5 - 15 MMOL/ L 11/04 12:00 PM T [facility] Not Available Not Available 08/19/2024 15:42:39 11/05/19 21 11/04/2020 Compr ehens jeffrey metab olic 1999 panel - Serum or Plasm a urea nitrogen/cre atinine [mass ratio] in serum or plasma 20.7 low: 6high: 26 BUN CREAT ININE RATIO 20.7 6 - 26 11/04 12:00 PM CDT [facility] Not Available Not Available 08/19/2024 15:42:39 11/05/19 21 11/04/2020 Compr ehens jeffrey metab olic 2000 panel - Serum or Plasm a albumin/glob ulin [mass ratio] in serum or plasma 1 text: 1.0 - 2.0 ratio A/G RATIO 1.0 1.0 - 2.0 RATIO 11/04 12:00 PM CDT [facility] Not Available Not Available 08/19/2024 15:42:39 11/05/19 21 11/04/2020 Compr ehens jeffrey metab olic 2000 panel - Serum or Plasm a glomerular filtration rate/1.73 sq M.predicted among non-blacks [volume rate/area] in serum, plasma or blood by creatinine-b ased formula (MDRD) text: >90 mL/min /1.73 M2 EGFR NON-A FR. AMER. >90 >90 ML/MS N/1.7 3 M2 11/04 12:00 PM CDT [facility] Not Available Not Available 08/19/2024 15:42:39 11/05/19 21 11/04/2020 Compr ehens jeffrey metab olic 2000 panel - Serum or Plasm a glomerular filtration rate/1.73 sq M.predicted among blacks [volume rate/area] in serum, plasma or blood by creatinine-b ased formula (MDRD) text: >90 mL/min /1.73 M2 EGFR AFR. AMER. >90 >90 ML/MS N/1.7 3 M2 11/04 12:00 PM CDT [facility] Not Available Not Available 08/19/2024 15:42:39 11/05/19 21 11/04/2020 Compr ehens jeffrey metab olic 2000 panel - Serum or Plasm a interpretati on and review of laboratory results Abnorm al Not Available Not Available 15:42:39 11/05/19 21 11/04/2020 CBC W Auto Diffe renti al panel - Blood leukocytes [#/volume] in blood by automated count 6.5 text: 4.5 - 11.0 x10'3/ uL WBC 6.5 4.5 - 11.0 x10'3 /uL 11/04 10:51 AM CDT [facility] Not Available Not Available 08/19/2024 15:42:39 11/05/19 21 11/04/2020 CBC W Auto Diffe renti al panel - Blood erythrocytes [#/volume] in blood by automated count 3.85 text: 4.20 - 5.40 x10'6/ uL low RBC 3.85 (L) 4.20 - 5.40 x10'6 /uL 11/04 10:51 AM CDT [facility] Not Available Not Available 08/19/2024 15:42:39 11/05/19 21 11/04/2020 CBC W Auto Diffe renti al panel - Blood hemoglobin [mass/volume ] in blood 12.3 text: 12.0 - 16.0 g/dL HGB 12.3 12.0 - 16.0 G/DL 11/04 10:51 AM CDT [facility] Not Available Not Available 08/19/2024 15:42:39 11/05/19 21 11/04/2020 CBC W Auto Diffe renti al panel - Blood hematocrit [volume fraction] of blood 38 % low: 38%hig h: 48% HCT 38.0 38.0 - 48.0 % 11/04 10:51 AM CDT [facility] Not Available Not Available 08/19/2024 15:42:39 11/05/19 21 11/04/2020 CBC W Auto Diffe renti al panel - Blood MCV [entitic volume] 98.7 text: 81.0 - 99.0 fL MCV 98.7 81.0 - 99.0 FL 11/04 10:51 AM CDT [facility] Not Available Not Available 08/19/2024 15:42:39 11/05/19 21 11/04/2020 CBC W Auto Diffe renti al panel - Blood MCH [entitic mass] 31.9 pg low: 27pghi gh: 31pg high MCH 31.9 (H) 27.0 - 31.0 PG 11/04 10:51 AM CDT [facility] Not Available Not Available 08/19/2024 15:42:39 11/05/19 21 11/04/2020 CBC W Auto Diffe renti al panel - Blood MCHC [mass/volume ] 32.4 text: 32.0 - 36.0 g/dL MCHC 32.4 32.0 - 36.0 G/DL 11/04 10:51 AM CDT [facility] Not Available Not Available 08/19/2024 15:42:39 11/05/19 21 11/04/2020 CBC W Auto Diffe renti al panel - Blood erythrocyte distribution width [entitic volume] by automated count 13.2 % low: 11.5%h igh: 14.5% RDW 13.2 11.5 - 14.5 % 11/04 10:51 AM CDT [facility] Not Available Not Available 08/19/2024 15:42:39 11/05/19 21 11/04/2020 CBC W Auto Diffe renti al panel - Blood platelets [#/volume] in blood 278 text: 130 - 400 x10'3/ uL PLT 278 130 - 400 x10'3 /uL 11/04 10:51 AM CDT [facility] Not Available Not Available 08/19/2024 15:42:39 11/05/19 21 11/04/2020 CBC W Auto Diffe renti al panel - Blood platelet mean volume [entitic volume] in blood 9.6 text: 9.3 - 12.2 fL MPV 9.6 9.3 - 12.2 FL 11/04 10:51 AM CDT [facility] Not Available Not Available 08/19/2024 15:42:39 11/05/19 21 11/04/2020 CBC W Auto Diffe renti al panel - Blood differential cell count method - blood AUTOMA RAD DIFFER ENTIAL DIFFE RENTI AL TYPE AUTOM ATED DIFFE RENTI AL 11/04 10:51 AM CDT [facility] Not Available Not Available 08/19/2024 15:42:39 11/05/19 21 11/04/2020 CBC W Auto Diffe renti al panel - Blood neutrophils/ 100 leukocytes in blood by automated count 72.6 % NEUTR OPHIL S % 72.6 % 11/04 10:51 AM CDT [facility] Not Available Not Available 08/19/2024 15:42:39 11/05/19 21 11/04/2020 CBC W Auto Diffe renti al panel - Blood lymphocytes/ 100 leukocytes in blood by automated count 19.7 % LYMPH OCYTE S % 19.7 % 11/04 10:51 AM CDT [facility] Not Available Not Available 08/19/2024 15:42:39 11/05/19 21 11/04/2020 CBC W Auto Diffe renti al panel - Blood monocytes/10 0 leukocytes in blood by automated count 6.4 % MONOC YTES % 6.4 % 11/04 10:51 AM CDT [facility] Not Available Not Available 08/19/2024 15:42:39 11/05/19 21 11/04/2020 CBC W Auto Diffe renti al panel - Blood eosinophils/ 100 leukocytes in blood by automated count 0.5 % EOSIN OPHIL S 0.5 % 11/04 10:51 AM CDT [facility] Not Available Not Available 08/19/2024 15:42:39 11/05/19 21 11/04/2020 CBC W Auto Diffe renti al panel - Blood basophils/10 0 leukocytes in blood by automated count 0.5 % BASOP HILS 0.5 % 11/04 10:51 AM CDT [facility] Not Available Not Available 08/19/2024 15:42:39 11/05/19 21 11/04/2020 CBC W Auto Diffe renti al panel - Blood immature granulocytes /100 leukocytes in blood by automated count 0.3 % IMMAT URE GRANS % 0.3 % 11/04 10:51 AM CDT [facility] Not Available Not Available 08/19/2024 15:42:39 11/05/19 21 11/04/2020 CBC W Auto Diffe renti al panel - Blood neutrophils [#/volume] in blood 4.69 text: 1.80 - 7.70 x10'3/ uL ABS. NEUTR OPHIL S TOTAL 4.69 1.80 - 7.70 x10'3 /uL 11/04 10:51 AM CDT [facility] Not Available Not Available 08/19/2024 15:42:39 11/05/19 21 11/04/2020 CBC W Auto Diffe renti al panel - Blood lymphocytes [#/volume] in blood 1.27 text: 1.00 - 4.80 x10'3/ uL ABS. LYMPH OCYTE S 1.27 1.00 - 4.80 x10'3 /uL 11/04 10:51 AM CDT [facility] Not Available Not Available 08/19/2024 15:42:39 11/05/19 21 11/04/2020 CBC W Auto Diffe renti al panel - Blood monocytes [#/volume] in blood 0.41 text: 0.24 - 0.86 x10'3/ uL ABS. MONOC YTES 0.41 0.24 - 0.86 x10'3 /uL 11/04 10:51 AM CDT [facility] Not Available Not Available 08/19/2024 15:42:39 11/05/19 21 11/04/2020 CBC W Auto Diffe renti al panel - Blood eosinophils [#/volume] in blood 0.03 text: 0.04 - 0.36 x10'3/ uL low ABS. EOSIN OPHIL S 0.03 (L) 0.04 - 0.36 x10'3 /uL 11/04 10:51 AM CDT [facility] Not Available Not Available 08/19/2024 15:42:39 11/05/19 21 11/04/2020 CBC W Auto Diffe renti al panel - Blood basophils [#/volume] in blood 0.03 text: 0.01 - 0.08 x10'3/ uL ABS. BASOP HILS 0.03 0.01 - 0.08 x10'3 /uL 11/04 10:51 AM CDT [facility] Not Available Not Available 08/19/2024 15:42:39 11/05/19 21 11/04/2020 CBC W Auto Diffe renti al panel - Blood immature granulocytes [#/volume] in blood 0.02 text: 0.00 - 0.49 x10'3/ uL ABS. IMMAT URE GRANU LOCYT ES 0.02 0.00 - 0.49 x10'3 /uL 11/04 10:51 AM CDT [facility] Not Available Not Available 08/19/2024 15:42:39 11/05/19 21 11/04/2020 CBC W Auto Diffe renti al panel - Blood interpretati on and review of laboratory results Abnorm al Not Available Not Available 15:42:39 10/06/19 24 10/08/2023 NUSWA B VAGIN ITIS PLUS (VG+) atopobium vaginae High - 2 score abnormal Not Available [facility] ([facility]) [address] [place], [address], 10/09/2023 13:08:29 10/06/19 24 10/08/2023 NUSWA B VAGIN ITIS PLUS (VG+) bvab 2 Low - 0 score Not Available [facility] ([facility]) [address] [place], [address], 10/09/2023 13:08:29 10/06/19 24 10/08/2023 NUSWA B VAGIN ITIS PLUS (VG+) megasphaera 1 High - 2 score abnormal Calcu late total score by merna g the 3 indiv idual bacte rial vagin osis (BV) marke r score s toget her. Total score is inter prete d as follo ws: Total score 0-1: Indic ates the absen ce of BV. Total score 2: Indet ermin ate for BV. Addit ional clini aidan data shoul d be evalu ated to estab uvaldo a diagn osis. Total score 3-6: Indic ates the prese nce of BV. This test was devel oped and its perfo rmanc e ricardo cteri stics deter mined by [facility]. It has not been clear ed or appro harman by the Food and Drug Admin istra tion. Not Available [facility] ([facility]) [address] [facility], [place], [address], 10/09/2023 13:08:29 10/06/19 24 10/08/2023 NUSWA B VAGIN ITIS PLUS (VG+) trich vag by NELLY Negati ve negati ve Not Available [facility] ([facility]) [address] [place], [address], 10/09/2023 13:08:29 10/06/19 24 10/08/2023 NUSWA B VAGIN ITIS PLUS (VG+) chlamydia trachomatis, NELLY Negati ve negati ve Not Available [facility] ([facility]) [address] [place], [address], 10/09/2023 13:08:29 10/06/19 24 10/08/2023 NUSWA B VAGIN ITIS PLUS (VG+) neisseria gonorrhoeae, NELLY Negati ve negati ve Not Available [facility] ([facility]) [address] [place], [address], 10/09/2023 13:08:29 10/06/19 24 10/09/2023 NUSWA B VAGIN ITIS PLUS (VG+) glenis albicans, NELLY Positi ve negati ve abnormal Not Available [facility] ([facility]) [address] [place], [address], 10/09/2023 13:08:29 10/06/19 24 10/09/2023 NUSWA B VAGIN ITIS PLUS (VG+) glenis glabrata, NELLY Positi ve negati ve abnormal Publi shed data demon strat e that up to 65% of [place]ola da glabr fernando ident ified in cases of vagin al paola diasi s have decre ased susce ptibi lity to fluco nazol e. Not Available [facility] ([facility]) [address] [facility], [place], [address], 10/09/2023 13:08:29 10/06/19 24 10/07/2023 RPR, RFX QN RPR/C ONFIR M TP RPR Non Reacti ve nonrea ctive Not Available [facility] ([facility]) [address] [facility], [place], [address], 10/09/2023 13:08:29 10/06/19 24 10/07/2023 HIV AB/P2 4 AG WITH REFLE X HIV Ab/P24 Ag screen Non Reacti ve nonrea ctive HIV Negat jeffrey HIV-1 /HIV- 2 antib odies and HIV-1 p24 antig en were NOT detec rad. There is no labor atory evide nce of HIV infec tion. Not Available [facility] ([facility]) [address] [facility], [place], [address], 10/09/2023 13:08:30 10/06/19 24 10/09/2023 IGP, APTIM A HPV, RFX 16/18 ,45 HPV aptima Positi ve negati ve abnormal This nucle ic acid ampli ficat ion test detec ts fourt een high- risk HPV types (16,1 8,31, 33,35 ,39,4 5,51, 52,56 ,58,5 9,66, 68) witho ut diffe renti ation . Not Available [facility] ([facility]) [address] [facility], [place], [address], 10/11/2023 13:10:39 10/06/19 24 10/11/2023 IGP, APTIM A HPV, RFX 16/18 ,45 diagnosis: Commen t abnormal EPITH ELIAL CELL ABNOR MALIT Y. LOW GRADE SQUAM OUS INTRA EPITH ELIAL LESIO N (LSIL ). FUNGA L ORGAN ISMS MORPH OLOGI EUN CONSI STENT WITH PAOLA DA SPECI ES ARE PRESE NT. Not Available [facility] ([facility]) [address] [place], [address], 10/11/2023 13:10:39 10/06/19 24 10/11/2023 IGP, APTIM A HPV, RFX 16/18 ,45 recommendati on: Martín sr abnormal Sugge st follo w up as clini eun appro priat e. Not Available [facility] ([facility]) [address] [place], [address], 10/11/2023 13:10:39 10/06/19 24 10/11/2023 IGP, APTIM A HPV, RFX 16/18 ,45 specimen adequacy: Martín sr Satis facto ry for evalu ation . Endoc ervic al and/o r squam ous metap lasti c cells (endo cervi aidan compo nent) are prese nt. Not Available [facility] ([facility]) [address] [place], [address], 10/11/2023 13:10:39 10/06/19 24 10/11/2023 IGP, APTIM A HPV, RFX 16/18 ,45 clinician provided ICD10: Martín sr Z01.4 19 Not Available [facility] ([facility]) [address] [place], [address], 10/11/2023 13:10:39 10/06/19 24 10/11/2023 IGP, APTIM A HPV, RFX 16/18 ,45 performed by: Martín montenegro Cytot gilberto sr (ASCP ) Not Available [facility] ([facility]) [address] [place], [address], 10/11/2023 13:10:39 10/06/19 24 10/11/2023 IGP, APTIM A HPV, RFX 16/18 ,45 electronical ly signed by: Martín Pinzon MD, Patho jennifer t Not Available [facility] ([facility]) [address] [facility], [place], [address], 10/11/2023 13:10:39 10/06/19 24 10/11/2023 IGP, APTIM A HPV, RFX 16/18 ,45 . . Not Available [facility] ([facility]) [address] [place], [address], 10/11/2023 13:10:39 10/06/19 24 10/11/2023 IGP, APTIM A HPV, RFX 16/18 ,45 pathologist provided ICD10: Martín sr R87.6 12, R87.5 Not Available [facility] ([facility]) [address] [facility], [place], [address], 10/11/2023 13:10:39 10/06/19 24 10/11/2023 IGP, APTIM A HPV, RFX 16/18 ,45 note: Martín sr The Pap smear is a scree caryl test descorwin ureña to aid in the detec tion of christina ligna nt and malig nant condi tions of the uteri ne cervi x. It is not a diagn ostic proce dure and shoul d not be used as the sole means of detec ting cervi aidan cance r. Both false -posi tive and false -nega tive repor ts do occur . Not Available [facility] ([facility]) [address] [facility], [place], [address], 10/11/2023 13:10:39 10/06/19 24 10/11/2023 IGP, APTIM A HPV, RFX 16/18 ,45 test methodology: Martín sr This liqui d based ThinP rep(R ) pap test was scree adelita with the use of an image guide d systgladis caba. Not Available [facility] ([facility]) [address] [facility], [place], [address], 10/11/2023 13:10:39 10/06/19 24 10/11/2023 IGP, APTIM A HPV, RFX 16/18 ,45 HPV genotype reflex Commen t Crite olvin not met, HPV Genot ype not perfo rmed. Not Available [facility] ([facility]) [address] [facility], [place], [address], 10/11/2023 13:10:39 10/26/19 24 10/30/2023 PATHO LOGY REPOR T . Commen t Mater ial submi tted: . endoc ervix - ENDOC ERVIC AL CURET TINGS Not Available [facility] ([facility]) [address] [facility], [place], [address], 10/30/2023 11:43:59 10/26/19 24 10/30/2023 PATHO LOGY REPOR T . Commen t Clini seymour provi ded ICD-1 0: R87.6 19 Not Available [facility] ([facility]) [address] [facility] [place], [address], 10/30/2023 11:43:59 10/26/19 24 10/30/2023 PATHO LOGY REPOR T . Commen t Clini aidan histo ry: . UNSPE CIFIE D ABNOR MAL CYTOL OGICA L FINDI NGS IN SPECI MENS FROM CERVI X UTERI Not Available [facility] ([facility]) [address] [facility], [place], [address], 10/30/2023 11:43:59 10/26/19 24 10/30/2023 PATHO LOGY REPOR T . Commen t Diagn osis: ENDOC ERVIC AL CURET TINGS : FOCAL SQUAM OUS ATYPI A PRESE NT IN A QUANT ITY INSUF FICIE NT FOR FURTH ER CLASS IFICA TION. MINUT E FRAGM ENTS OF BENIG N ENDOC ERVIC AL GLAND S, MUCUS , AND BLOOD . SKI 10/29 1106 Local Not Available [facility] ([facility]) [address] [place], [address], 10/30/2023 11:43:59 10/26/19 24 10/30/2023 PATHO LOGY REPOR T . Commen t Leoncio prado d: . Chen tao MD, Patho logis t Not Available [facility] ([facility]) [address] [place], [address], 10/30/2023 11:43:59 10/26/19 24 10/30/2023 PATHO LOGY REPOR T . Commen t Gross descr iptio n: . 1 Conta iner, forma cande-f illed , label ed with patie nt ident ifica tion. ENDOC ERVIC AL CURET TINGS : MULTI PLE FRAGM ENT(S ) OF SOFT MATER IAL, BLOOD , AND MUCUS MEASU RING 3.0 X 0.5 X 0.1 CM IN AGGRE GATE. FILTE RED AND SUBMI TTED IN CASSE TTE(S ) A1. /Chris RODRIGUEZ 10/26 0809 Local Not Available [facility] ([facility]) [address] [place], [address], 10/30/2023 11:43:59 10/26/19 24 10/30/2023 PATHO LOGY REPOR T . Commen t CPT . 77231 1 Not Available [facility] ([facility]) [address] [facility], [place], [address], 10/30/2023 11:43:59 10/26/19 24 10/26/2023 pregn vonda test, urine HCG negati ve Not Available In-Office Order Internal Use Only DO Not Attach Compendium DO Not Attach Compendium, Do Not Delete/merge, [id number] 10/26/2023 14:15:12 08/23/19 25 08/24/2024 Influ ange virus A and B and SARS- CoV-2 (COVI D-19) and SARS- relat ed CoV RNA panel - Respi rator y syste m speci men by NELLY with probe detec tion adenovirus DNA [presence] in nasopharynx by NELLY with probe detection NOT DETECT ED text: not detect ed ADENO VIRUS PCR (RESP ) NOT DETEC RAD NOT DETEC RAD 08/23 11:43 PM [facility] Not Available Not Available 08/26/2024 15:05:51 08/23/19 25 08/24/2024 Influ ange virus A and B and SARS- CoV-2 (COVI D-19) and SARS- relat ed CoV RNA panel - Respi rator y syste m speci men by NELLY with probe detec tion human coronavirus 229E RNA [presence] in specimen by NELLY with probe detection NOT DETECT ED text: not detect ed CORON AVIRU S 229E PCR (RESP ) NOT DETEC RAD NOT DETEC RAD 08/23 11:43 PM [facility] Not Available Not Available 08/26/2024 15:05:51 08/23/19 25 08/24/2024 Influ ange virus A and B and SARS- CoV-2 (COVI D-19) and SARS- relat ed CoV RNA panel - Respi rator y syste m speci men by NELLY with probe detec tion human coronavirus hku1 RNA [presence] in specimen by NELLY with probe detection NOT DETECT ED text: not detect ed CORON AVIRU S HKU1 PCR (RESP ) NOT DETEC RAD NOT DETEC RAD 08/23 11:43 PM [facility] Not Available Not Available 08/26/2024 15:05:51 08/23/19 25 08/24/2024 Influ ange virus A and B and SARS- CoV-2 (COVI D-19) and SARS- relat ed CoV RNA panel - Respi rator y syste m speci men by NELLY with probe detec tion human coronavirus nl63 RNA [presence] in specimen by NELLY with probe detection NOT DETECT ED text: not detect ed CORON AVIRU S NL63 PCR (RESP ) NOT DETEC RAD NOT DETEC RAD 08/23 11:43 PM [facility] Not Available Not Available 08/26/2024 15:05:51 08/23/19 25 08/24/2024 Influ ange virus A and B and SARS- CoV-2 (COVI D-19) and SARS- relat ed CoV RNA panel - Respi rator y syste m speci men by NELLY with probe detec tion human coronavirus oc43 RNA [presence] in specimen by NELLY with probe detection NOT DETECT ED text: not detect ed CORON AVIRU S OC43 PCR (RESP ) NOT DETEC RAD NOT DETEC RAD 08/23 11:43 PM [facility] Not Available Not Available 08/26/2024 15:05:51 08/23/19 25 08/24/2024 Influ ange virus A and B and SARS- CoV-2 (COVI D-19) and SARS- relat ed CoV RNA panel - Respi rator y syste m speci men by NELLY with probe detec tion human metapneumovi jack RNA [presence] in nasopharynx by NELLY with probe detection NOT DETECT ED text: not detect ed METAP NEUMO VIRUS PCR (RESP ) NOT DETEC RAD NOT DETEC RAD 08/23 11:43 PM [facility] Not Available Not Available 08/26/2024 15:05:51 08/23/19 25 08/24/2024 Influ ange virus A and B and SARS- CoV-2 (COVI D-19) and SARS- relat ed CoV RNA panel - Respi rator y syste m speci men by NELLY with probe detec tion rhinovirus+e nterovirus RNA [presence] in specimen by NELLY with probe detection NOT DETECT ED text: not detect ed RHINO VIRUS /ENTE ROVIR US PCR (RESP ) NOT DETEC RAD NOT DETEC RAD 08/23 11:43 PM [facility] Not Available Not Available 08/26/2024 15:05:51 08/23/19 25 08/24/2024 Influ ange virus A and B and SARS- CoV-2 (COVI D-19) and SARS- relat ed CoV RNA panel - Respi rator y syste m speci men by NELLY with probe detec tion influenza virus A RNA [presence] in nasopharynx by NELLY with probe detection NOT DETECT ED text: not detect ed INFLU ANGE A PCR (RESP ) NOT DETEC RAD NOT DETEC RAD 08/23 11:43 PM [facility] Not Available Not Available 08/26/2024 15:05:51 08/23/19 25 08/24/2024 Influ ange virus A and B and SARS- CoV-2 (COVI D-19) and SARS- relat ed CoV RNA panel - Respi rator y syste m speci men by NELLY with probe detec tion influenza virus B RNA [presence] in nasopharynx by NELLY with probe detection NOT DETECT ED text: not detect ed INFLU ANGE B PCR (RESP ) NOT DETEC RAD NOT DETEC RAD 08/23 11:43 PM [facility] Not Available Not Available 08/26/2024 15:05:51 08/23/19 25 08/24/2024 Influ ange virus A and B and SARS- CoV-2 (COVI D-19) and SARS- relat ed CoV RNA panel - Respi rator y syste m speci men by NELLY with probe detec tion parainfluenz a virus 1 RNA [presence] in nasopharynx by NELLY with probe detection NOT DETECT ED text: not detect ed PARAI NFLUE NZA 1 PCR (RESP ) NOT DETEC RAD NOT DETEC RAD 08/23 11:43 PM [facility] Not Available Not Available 08/26/2024 15:05:51 08/23/19 25 08/24/2024 Influ ange virus A and B and SARS- CoV-2 (COVI D-19) and SARS- relat ed CoV RNA panel - Respi rator y syste m speci men by NELLY with probe detec tion parainfluenz a virus 2 RNA [presence] in nasopharynx by NELLY with probe detection NOT DETECT ED text: not detect ed PARAI NFLUE NZA 2 PCR (RESP ) NOT DETEC RAD NOT DETEC RAD 08/23 11:43 PM [facility] Not Available Not Available 08/26/2024 15:05:51 08/23/19 25 08/24/2024 Influ ange virus A and B and SARS- CoV-2 (COVI D-19) and SARS- relat ed CoV RNA panel - Respi rator y syste m speci men by NELLY with probe detec tion parainfluenz a virus 3 RNA [presence] in nasopharynx by NELLY with probe detection NOT DETECT ED text: not detect ed PARAI NFLUE NZA 3 PCR (RESP ) NOT DETEC RAD NOT DETEC RAD 08/23 11:43 PM [facility] Not Available Not Available 08/26/2024 15:05:51 08/23/19 25 08/24/2024 Influ ange virus A and B and SARS- CoV-2 (COVI D-19) and SARS- relat ed CoV RNA panel - Respi rator y syste m speci men by NELLY with probe detec tion parainfluenz a virus 4 RNA [presence] in nasopharynx by NELLY with probe detection NOT DETECT ED text: not detect ed PARAI NFLUE NZA 4 PCR (RESP ) NOT DETEC RAD NOT DETEC RAD 08/23 11:43 PM [facility] Not Available Not Available 08/26/2024 15:05:51 08/23/19 25 08/24/2024 Influ ange virus A and B and SARS- CoV-2 (COVI D-19) and SARS- relat ed CoV RNA panel - Respi rator y syste m speci men by NELLY with probe detec tion respiratory syncytial virus RNA [presence] in nasopharynx by NELLY with probe detection NOT DETECT ED text: not detect ed RSV PCR (RESP ) NOT DETEC RAD NOT DETEC RAD 08/23 11:43 PM [facility] Not Available Not Available 08/26/2024 15:05:51 08/23/19 25 08/24/2024 Influ ange virus A and B and SARS- CoV-2 (COVI D-19) and SARS- relat ed CoV RNA panel - Respi rator y syste m speci men by NELLY with probe detec tion bordetella parapertussi s DNA [presence] in nasopharynx by NELLY with probe detection NOT DETECT ED text: not detect ed B PARAP ERTUS IS PCR (RESP ) NOT DETEC RAD NOT DETEC RAD 08/23 11:43 PM [facility] Not Available Not Available 08/26/2024 15:05:51 08/23/19 25 08/24/2024 Influ ange virus A and B and SARS- CoV-2 (COVI D-19) and SARS- relat ed CoV RNA panel - Respi rator y syste m speci men by NELLY with probe detec tion bordetella pertussis DNA [presence] in nasopharynx by NELLY with probe detection NOT DETECT ED text: not detect ed BORDE TELLA PERTU SSIS PCR (RESP ) NOT DETEC RAD NOT DETEC RAD 08/23 11:43 PM [facility] Not Available Not Available 08/26/2024 15:05:51 08/23/19 25 08/24/2024 Influ ange virus A and B and SARS- CoV-2 (COVI D-19) and SARS- relat ed CoV RNA panel - Respi rator y syste m speci men by NELLY with probe detec tion chlamydophil a pneumoniae DNA [presence] in specimen by NELLY with probe detection NOT DETECT ED text: not detect ed CHLAM YDOPH SOLOMON PNEUM ONIAE PCR (RESP ) NOT DETEC RAD NOT DETEC RAD 08/23 11:43 PM [facility] Not Available Not Available 08/26/2024 15:05:51 08/23/19 25 08/24/2024 Influ ange virus A and B and SARS- CoV-2 (COVI D-19) and SARS- relat ed CoV RNA panel - Respi rator y syste m speci men by NELLY with probe detec tion mycoplasma pneumoniae DNA [presence] in specimen by NELLY with probe detection NOT DETECT ED text: not detect ed MYCOP LASMA PNEUM ONIAE PCR (RESP ) NOT DETEC RAD NOT DETEC RAD 08/23 11:43 PM [facility] Not Available Not Available 08/26/2024 15:05:51 08/23/19 25 08/24/2024 Influ ange virus A and B and SARS- CoV-2 (COVI D-19) and SARS- relat ed CoV RNA panel - Respi rator y syste m speci men by NELLY with probe detec tion sars-cov-2 (covid-19) RNA [presence] in specimen by NELLY with probe detection NOT DETECT ED text: not detect ed CORON AVIRU S SARS COV 2 PCR (RESP ) NOT DETEC RAD NOT DETEC RAD 08/23 11:43 PM [facility] Not Available Not Available 08/26/2024 15:05:51 08/23/19 25 08/24/2024 Eryth rocyt e sedim entat ion rate erythrocyte sedimentatio n rate 35 text: <20 mm/HR high ESR 35 (H) <20 MM/HR 08/23 11:18 PM [facility] Not Available Not Available 08/26/2024 15:05:51 08/23/19 25 08/24/2024 Eryth rocyt e sedim entat ion rate interpretati on and review of laboratory results Abnorm al Not Available Not Available 15:05:51 08/23/1908/23/2024 Wagner ol [Pres ence] in Serum or Plasm a ethanol [presence] in serum or plasma 0.226 text: <0.003 g/dL high ALCOH OL S/P/B 0.226 (H) <0.00 3 G/DL 08/23 9:25 PM [facility] Not Available Not Available 08/26/2024 15:05:51 08/23/19 25 08/23/2024 Wagner ol [Pres ence] in Serum or Plasm a interpretati on and review of laboratory results Abnorm al Not Available Not Available 15:05:51 08/23/1908/23/2024 Phosp hate [Mass /volu me] in Serum or Plasm a phosphate [mass/volume ] in serum or plasma 2.8 text: 2.5 - 4.9 mg/dL PHOSP HORUS 2.8 2.5 - 4.9 MG/DL 08/23 7:58 PM [facility] Not Available Not Available 08/26/2024 15:05:51 08/23/1908/23/2024 Magne sium [Mass /volu me] in Serum or Plasm a magnesium [mass/volume ] in serum or plasma 1.7 text: 1.8 - 2.4 mg/dL low MAGNE SIUM 1.7 (L) 1.8 - 2.4 MG/DL 08/23 7:38 PM [facility] Not Available Not Available 08/26/2024 15:05:51 08/23/19 25 08/23/2024 Magne sium [Mass /volu me] in Serum or Plasm a interpretati on and review of laboratory results Abnorm al Not Available Not Available 15:05:51 08/23/19 25 08/23/2024 Creat ine kinas e [Enzy matic activ ity/v olume ] in Serum or Plasm a creatine kinase [enzymatic activity/vol ume] in serum or plasma 167 U/L low: 21U/Lh igh: 215U/L CPK 167 21 - 215 U/L 08/23 6:36 PM [facility] Not Available Not Available 08/26/2024 15:05:51 08/23/19 25 08/23/2024 Compr ehens jeffrey metab olic 1999 panel - Serum or Plasm a glucose [mass/volume ] in serum or plasma 83 text: 70 - 99 mg/dL GLUCO SE 83 70 - 99 MG/DL 08/23 6:17 PM [facility] Not Available Not Available 08/26/2024 15:05:51 08/23/19 25 08/23/2024 Compr ehens jeffrey metab olic 1999 panel - Serum or Plasm a urea nitrogen [mass/volume ] in serum or plasma 6 text: 7 - 18 mg/dL low BUN 6 (L) 7 - 18 MG/DL 08/23 6:17 PM [facility] Not Available Not Available 08/26/2024 15:05:51 08/23/19 25 08/23/2024 Compr ehens jeffrey metab olic 1999 panel - Serum or Plasm a creatinine [mass/volume ] in serum or plasma 0.56 text: 0.55 - 1.02 mg/dL CREAT ININE S/P/B 0.56 0.55 - 1.02 MG/DL 08/23 6:17 PM [facility] Not Available Not Available 08/26/2024 15:05:51 08/23/19 25 08/23/2024 Compr ehens jeffrey metab olic 2000 panel - Serum or Plasm a sodium [moles/volum e] in serum or plasma 137 text: 136 - 145 mmol/L SODIU M S/P/B 137 136 - 145 MMOL/ L 08/23 6:17 PM [facility] Not Available Not Available 08/26/2024 15:05:51 08/23/19 25 08/23/2024 Compr ehens jeffrey metab olic 2000 panel - Serum or Plasm a potassium [moles/volum e] in serum or plasma 2.2 text: 3.5 - 5.1 mmol/L critical low POTAS SIUM S/P/B 2.2 (LL) 3.5 - 5.1 MMOL/ L 08/23 6:17 PM [facility] Not Available Not Available 08/26/2024 15:05:51 08/23/19 25 08/23/2024 Compr ehens jeffrey metab olic 2000 panel - Serum or Plasm a chloride [moles/volum e] in serum or plasma 97 text: 97 - 115 mmol/L CHLOR LOY S/P/B 97 97 - 115 MMOL/ L 08/23 6:[address] [facility] Not Available Not Available 08/26/2024 15:05:51 08/23/19 25 08/23/2024 Compr ehens jeffrey metab olic 2000 panel - Serum or Plasm a carbon dioxide, total [moles/volum e] in serum or plasma 26.2 text: 21 - 32 mmol/L CO2 26.2 21 - 32 MMOL/ L 08/23 6:17 PM [facility] Not Available Not Available 08/26/2024 15:05:51 08/23/19 25 08/23/2024 Compr ehens jeffrey metab olic 2000 panel - Serum or Plasm a calcium [mass/volume ] in serum or plasma 8.7 text: 8.5 - 10.1 mg/dL CALCI UM S/P/B 8.7 8.5 - 10.1 MG/DL 08/23 6:[address] [facility] Not Available Not Available 08/26/2024 15:05:51 08/23/19 25 08/23/2024 Compr ehens jeffrey metab olic 2000 panel - Serum or Plasm a bilirubin.to jessica [mass/volume ] in serum or plasma 1.4 text: 0.2 - 1.2 mg/dL high BILIR UBIN TOTAL S/P/B 1.4 (H) 0.2 - 1.2 MG/DL 08/23 6:17 PM [facility] Not Available Not Available 08/26/2024 15:05:51 08/23/19 25 08/23/2024 Compr ehens jeffrey metab olic 1999 panel - Serum or Plasm a protein [mass/volume ] in serum or plasma 8.4 text: 6.4 - 8.2 g/dL high TOTAL PROTE IN S/P/B 8.4 (H) 6.4 - 8.2 G/DL 08/23 6:17 PM [facility] Not Available Not Available 08/26/2024 15:05:51 08/23/19 25 08/23/2024 Compr ehens jeffrey metab olic 2000 panel - Serum or Plasm a albumin [mass/volume ] in serum or plasma 4.2 text: 3.4 - 5.0 g/dL ALBUM IN S/P/B 4.2 3.4 - 5.0 G/DL 08/23 6:17 PM [facility] Not Available Not Available 08/26/2024 15:05:51 08/23/19 25 08/23/2024 Compr ehens jeffrey metab olic 2000 panel - Serum or Plasm a aspartate aminotransfe rase [enzymatic activity/vol ume] in serum or plasma 340 U/L low: 15U/Lh igh: 37U/L high AST 340 (H) 15 - 37 U/L 08/23 6:17 PM [facility] Not Available Not Available 08/26/2024 15:05:51 08/23/19 25 08/23/2024 Compr ehens jeffrey metab olic 2000 panel - Serum or Plasm a alanine aminotransfe rase [enzymatic activity/vol ume] in serum or plasma 130 U/L low: 14U/Lh igh: 55U/L high ALT 130 (H) 14 - 55 U/L 08/23 6:17 PM [facility] Not Available Not Available 08/26/2024 15:05:51 08/23/19 25 08/23/2024 Compr ehens jeffrey metab olic 1999 panel - Serum or Plasm a alkaline phosphatase [enzymatic activity/vol ume] in serum or plasma 107 U/L low: 50U/Lh igh: 136U/L ALKAL INE PHOSP HATAS E S/P/B 107 50 - 136 U/L 08/23 6:17 PM [facility] Not Available Not Available 08/26/2024 15:05:51 08/23/19 25 08/23/2024 Compr ehens jeffrey metab olic 1999 panel - Serum or Plasm a anion gap in serum or plasma 13.8 text: 2 - 10 mmol/L high ANION GAP 13.8 (H) 2 - 10 MMOL/ L 08/23 6:17 PM [facility] Not Available Not Available 08/26/2024 15:05:51 08/23/19 25 08/23/2024 [facility] - Serum or Plasm a urea nitrogen/cre atinine [mass ratio] in serum or plasma 10.7 low: 6high: 26 BUN CREAT ININE RATIO 10.7 6 - 26 08/23 6:17 PM [facility] Not Available Not Available 08/26/2024 15:05:51 08/23/19 25 08/23/2024 [facility] panel - Serum or Plasm a albumin/glob ulin [mass ratio] in serum or plasma 1 text: 1.0 - 2.0 ratio A/G RATIO 1.0 1.0 - 2.0 RATIO 08/23 6:17 PM [facility] Not Available Not Available 08/26/2024 15:05:51 08/23/19 25 08/23/2024 Compr ehens jeffrey metab olic 2000 panel - Serum or Plasm a glomerular filtration rate/1.73 sq M.predicted [volume rate/area] in serum, plasma or blood by creatinine-b ased formula (CKD-epi 2020) >90 text: >90 mL/min /1.73 M2 GFR ESTIM ATE >90 >90 ML/MS N/1.7 3 M2 08/23 6:17 PM [facility] Not Available Not Available 08/26/2024 15:05:51 08/23/19 25 08/23/2024 Compr diana jones metab olic 2000 panel - Serum or Plasm a interpretati on and review of laboratory results Abnorm al Not Available Not Available 15:05:51 08/23/19 25 08/23/2024 CBC W Auto Diffe renti al panel - Blood leukocytes [#/volume] in blood by automated count 8.01 text: 4.5 - 11.0 x10'3/ uL WBC 8.01 4.5 - 11.0 x10'3 /uL 08/23 6:03 PM [facility] Not Available Not Available 08/26/2024 15:05:51 08/23/19 25 08/23/2024 CBC W Auto Diffe renti al panel - Blood erythrocytes [#/volume] in blood by automated count 4.44 text: 4.20 - 5.40 x10'6/ uL RBC 4.44 4.20 - 5.40 x10'6 /uL 08/23 6:03 PM [facility] Not Available Not Available 08/26/2024 15:05:51 08/23/19 25 08/23/2024 CBC W Auto Diffe renti al panel - Blood hemoglobin [mass/volume ] in blood 16 text: 12.0 - 16.0 g/dL HGB 16.0 12.0 - 16.0 G/DL 08/23 6:03 PM [facility] Not Available Not Available 08/26/2024 15:05:51 08/23/19 25 08/23/2024 CBC W Auto Diffe renti al panel - Blood hematocrit [volume fraction] of blood 47.2 % low: 38%hig h: 48% HCT 47.2 38.0 - 48.0 % 08/23 6:03 PM [facility] Not Available Not Available 08/26/2024 15:05:51 08/23/19 25 08/23/2024 CBC W Auto Diffe renti al panel - Blood MCV [entitic volume] 106.3 text: 81.0 - 99.0 fL high MCV 106.3 (H) 81.0 - 99.0 FL 08/23 6:03 PM [facility] Not Available Not Available 08/26/2024 15:05:51 08/23/19 25 08/23/2024 CBC W Auto Diffe renti al panel - Blood MCH [entitic mass] 36 pg low: 27pghi gh: 31pg high MCH 36.0 (H) 27.0 - 31.0 PG 08/23 6:03 PM [facility] Not Available Not Available 08/26/2024 15:05:51 08/23/19 25 08/23/2024 CBC W Auto Diffe renti al panel - Blood MCHC [mass/volume ] 33.9 text: 32.0 - 36.0 g/dL MCHC 33.9 32.0 - 36.0 G/DL 08/23 6:03 PM [facility] Not Available Not Available 08/26/2024 15:05:51 08/23/19 25 08/23/2024 CBC W Auto Diffe renti al panel - Blood erythrocyte distribution width [entitic volume] by automated count 12.6 % low: 11.5%h igh: 14.5% RDW 12.6 11.5 - 14.5 % 08/23 6:03 PM [facility] Not Available Not Available 08/26/2024 15:05:51 08/23/19 25 08/23/2024 CBC W Auto Diffe renti al panel - Blood platelets [#/volume] in blood 202 text: 130 - 400 x10'3/ uL PLT 202 130 - 400 x10'3 /uL 08/23 6:03 PM [facility] Not Available Not Available 08/26/2024 15:05:51 08/23/19 25 08/23/2024 CBC W Auto Diffe renti al panel - Blood platelet mean volume [entitic volume] in blood 9.4 text: 9.3 - 12.2 fL MPV 9.4 9.3 - 12.2 FL 08/23 6:03 PM [facility] Not Available Not Available 08/26/2024 15:05:51 08/23/19 25 08/23/2024 CBC W Auto Diffe renti al panel - Blood differential cell count method - blood AUTOMA RAD DIFFER ENTIAL DIFFE RENTI AL TYPE AUTOM ATED DIFFE RENTI AL 08/23 6:55 PM [facility] Not Available Not Available 08/26/2024 15:05:51 08/23/19 25 08/23/2024 CBC W Auto Diffe renti al panel - Blood neutrophils/ 100 leukocytes in blood by automated count 85.3 % NEUTR OPHIL S % 85.3 % 08/23 6:55 PM [facility] Not Available Not Available 08/26/2024 15:05:51 08/23/19 25 08/23/2024 CBC W Auto Diffe renti al panel - Blood lymphocytes/ 100 leukocytes in blood by automated count 9.7 % LYMPH OCYTE S % 9.7 % 08/23 6:55 PM [facility] Not Available Not Available 08/26/2024 15:05:51 08/23/19 25 08/23/2024 CBC W Auto Diffe renti al panel - Blood monocytes/10 0 leukocytes in blood by automated count 3.7 % MONOC YTES % 3.7 % 08/23 6:55 PM [facility] Not Available Not Available 08/26/2024 15:05:51 08/23/19 25 08/23/2024 CBC W Auto Diffe renti al panel - Blood eosinophils/ 100 leukocytes in blood by automated count 0.2 % EOSIN OPHIL S 0.2 % 02/28 /2025 6:55 PM [facility] Not Available Not Available 08/26/2024 15:05:51 08/23/19 25 08/23/2024 CBC W Auto Diffe renti al panel - Blood basophils/10 0 leukocytes in blood by automated count 0.7 % BASOP HILS 0.7 % 08/23 6:55 PM [facility] Not Available Not Available 08/26/2024 15:05:51 08/23/19 25 08/23/2024 CBC W Auto Diffe renti al panel - Blood immature granulocytes /100 leukocytes in blood by automated count 0.4 % IMMAT URE GRANS % 0.4 % 08/23 6:55 PM [facility] Not Available Not Available 08/26/2024 15:05:51 08/23/19 25 08/23/2024 CBC W Auto Diffe renti al panel - Blood neutrophils [#/volume] in blood 6.82 text: 1.80 - 7.70 x10'3/ uL ABS. NEUTR OPHIL S 6.82 1.80 - 7.70 x10'3 /uL 08/23 6:55 PM [facility] Not Available Not Available 08/26/2024 15:05:51 08/23/19 25 08/23/2024 CBC W Auto Diffe renti al panel - Blood lymphocytes [#/volume] in blood 0.78 text: 1.00 - 4.80 x10'3/ uL low ABS. LYMPH OCYTE S 0.78 (L) 1.00 - 4.80 x10'3 /uL 08/23 6:55 PM [facility] Not Available Not Available 08/26/2024 15:05:51 08/23/19 25 08/23/2024 CBC W Auto Diffe renti al panel - Blood monocytes [#/volume] in blood 0.3 text: 0.24 - 0.86 x10'3/ uL ABS. MONOC YTES 0.30 0.24 - 0.86 x10'3 /uL 08/23 6:55 PM [facility] Not Available Not Available 08/26/2024 15:05:51 08/23/19 25 08/23/2024 CBC W Auto Diffe renti al panel - Blood eosinophils [#/volume] in blood 0.02 text: 0.04 - 0.36 x10'3/ uL low ABS. EOSIN OPHIL S 0.02 (L) 0.04 - 0.36 x10'3 /uL 08/23 6:55 PM [facility] Not Available Not Available 08/26/2024 15:05:51 08/23/19 25 08/23/2024 CBC W Auto Diffe renti al panel - Blood basophils [#/volume] in blood 0.06 text: 0.01 - 0.08 x10'3/ uL ABS. BASOP HILS 0.06 0.01 - 0.08 x10'3 /uL 08/23 6:55 PM [facility] Not Available Not Available 08/26/2024 15:05:51 08/23/1908/23/2024 CBC W Auto Diffe renti al panel - Blood immature granulocytes [#/volume] in blood 0.03 text: 0.00 - 0.49 x10'3/ uL ABS. IMMAT URE GRANU LOCYT ES 0.03 0.00 - 0.49 x10'3 /uL 08/23 6:55 PM [facility] Not Available Not Available 08/26/2024 15:05:51 08/23/1908/23/2024 CBC W Auto Diffe renti al panel - Blood erythrocytes [morphology] in blood by automated count SLIDE REVIEW ED RBC MORPH OLOGY SLIDE REVIE WED 08/23 6:55 PM [facility] Not Available Not Available 08/26/2024 15:05:51 08/23/19 25 08/23/2024 CBC W Auto Diffe renti al panel - Blood macrocytes [presence] in blood 1+ MACRO 1+ 08/23 6:55 PM [facility] Not Available Not Available 08/26/2024 15:05:51 08/23/19 25 08/23/2024 CBC W Auto Diffe renti al panel - Blood platelets [#/volume] in blood by automated count ADEQUA TE PLT EST. ADEQU ATE 08/23 6:55 PM [facility] Not Available Not Available 08/26/2024 15:05:51 08/23/19 25 08/23/2024 CBC W Auto Diffe renti al panel - Blood interpretati on and review of laboratory results Abnorm al Not Available Not Available 15:05:51 08/23/19 25 08/25/2024 Bacte olvin ident ified in Urine by Cultu re specimen source identified URINE CLEAN CATCH SPEC DESCR IPTIO N URINE CLEAN CATCH 08/23 7:17 PM [facility] Not Available Not Available 08/26/2024 15:05:51 08/23/19 25 08/25/2024 Bacte olvin ident ified in Urine by Cultu re service comment NO SPECIA L REQUES T SPECI AL REQUE STS NO SPECI AL REQUE ST 08/23 7:17 PM [facility] Not Available Not Available 08/26/2024 15:05:51 08/23/19 25 08/25/2024 Bacte olvin ident ified in Urine by Cultu re bacteria identified in specimen by culture POLYMI CROBIA L GROWTH CONSIS TENT WITH NORMAL GENITA L CURT. SUSCEP TIBILI TIES NOT ROUTIN CHASITY PERFOR MED. CULTU RE RESUL T POLYM ICROB IAL GROWT H CONSI STENT WITH PHILIPPE L GENIT AL CURT . SUSCE PTIBI LITIE S NOT ROUTI MARIELLE PERFO RMED. 08/25 7:09 AM [facility] Not Available Not Available 08/26/2024 15:05:51 08/23/19 25 08/23/2024 Urina lysis dipst ick W Refle x Micro scopi c panel - Urine collection method - specimen URINE CLEAN CATCH SPECI MEN TYPE URINE CLEAN CATCH 08/23 5:35 PM [facility] Not Available Not Available 08/26/2024 15:05:50 08/23/19 25 08/23/2024 Urina lysis dipst ick W Refle x Micro scopi c panel - Urine color of urine YELLOW COLOR (U) YELLO W 08/23 5:57 PM [facility] Not Available Not Available 08/26/2024 15:05:50 08/23/19 25 08/23/2024 Urina lysis dipst ick W Refle x Micro scopi c panel - Urine clarity of urine CLEAR TRANS PAREN CY CLEAR 08/23 5:57 PM [facility] Not Available Not Available 08/26/2024 15:05:50 08/23/19 25 08/23/2024 Urina lysis dipst ick W Refle x Micro scopi c panel - Urine specific gravity of urine 1.027 low: 1.001h igh: 1.03 SPECI FIC GRAVI TY (U) 1.027 1.001 - 1.030 08/23 5:57 PM [facility] Not Available Not Available 08/26/2024 15:05:50 08/23/19 25 08/23/2024 Urina lysis dipst ick W Refle x Micro scopi c panel - Urine pH of urine 6 low: 5high: 9 U PH 6.0 5.0 - 9.0 08/23 5:57 PM [facility] Not Available Not Available 08/26/2024 15:05:50 08/23/19 25 08/23/2024 Urina lysis dipst ick W Refle x Micro scopi c panel - Urine leukocytes [#/volume] in urine by test strip 25 text: negati ve abnormal LEUKO CYTES (U) 25 (A) NEGAT JEFFREY 08/23 5:57 PM [facility] Not Available Not Available 08/26/2024 15:05:50 08/23/19 25 08/23/2024 Urina lysis dipst ick W Refle x Micro scopi c panel - Urine nitrite [presence] in urine NEGATI VE text: negati ve NITRI NGHIA NEGAT JEFFREY NEGAT JEFFREY 08/23 5:57 PM [facility] Not Available Not Available 08/26/2024 15:05:50 08/23/19 25 08/23/2024 Urina lysis dipst ick W Refle x Micro scopi c panel - Urine protein [mass/volume ] in urine by test strip 600 text: <30 mg/dL high PROTE IN RANDO M (U) 600 (H) <30 MG/DL 08/23 5:57 PM [facility] Not Available Not Available 08/26/2024 15:05:50 08/23/19 25 08/23/2024 Urina lysis dipst ick W Refle x Micro scopi c panel - Urine glucose [mass/volume ] in urine NORMAL text: normal mg/dL GLUCO SE (U) PHILIPPE L PHILIPPE L MG/DL 08/23 5:57 PM [facility] Not Available Not Available 08/26/2024 15:05:50 08/23/19 25 08/23/2024 Urina lysis dipst ick W Refle x Micro scopi c panel - Urine ketones [mass/volume ] in urine by test strip 100 text: negati ve mg/dL abnormal KETON ES MG/DL (U) 100 (A) NEGAT JEFFREY MG/DL 08/23 5:57 PM [facility] Not Available Not Available 08/26/2024 15:05:50 08/23/19 25 08/23/2024 Urina lysis dipst ick W Refle x Micro scopi c panel - Urine urobilinogen [units/volum e] in urine by test strip NORMAL text: normal mg/dL UROBI LINOG EN PHILIPPE L PHILIPPE L MG/DL 08/23 5:[address] [facility] Not Available Not Available 08/26/2024 15:05:50 08/23/19 25 08/23/2024 Urina lysis dipst ick W Refle x Micro scopi c panel - Urine bilirubin.to jessica [mass/volume ] in urine NEGATI VE text: negati ve mg/dL BILIR UBIN (U) NEGAT JEFFREY NEGAT JEFFREY MG/DL 08/23 5:57 PM [facility] Not Available Not Available 08/26/2024 15:05:50 08/23/19 25 08/23/2024 Urina lysis dipst ick W Refle x Micro scopi c panel - Urine erythrocytes [#/volume] in urine by automated test strip 2+ text: negati ve abnormal BLOOD (U) 2+ (A) NEGAT JEFFREY 08/23 5:57 PM [facility] Not Available Not Available 08/26/2024 15:05:50 08/23/19 25 08/23/2024 Urina lysis dipst ick W Refle x Micro scopi c panel - Urine mucus [#/area] in urine sediment by microscopy low power field FEW text: /lpf MUCUS FEW /LPF 08/23 5:57 PM [facility] Not Available Not Available 08/26/2024 15:05:50 08/23/19 25 08/23/2024 Urina lysis dipst ick W Refle x Micro scopi c panel - Urine hyaline casts [#/area] in urine sediment by microscopy low power field RARE text: /lpf HYALI NE CASTS RARE /LPF 08/23 5:57 PM [facility] Not Available Not Available 08/26/2024 15:05:50 08/23/19 25 08/23/2024 Urina lysis dipst ick W Refle x Micro scopi c panel - Urine leukocytes [#/area] in urine sediment by microscopy high power field 7 text: <6 /hpf high WBC/H PF 7 (H) <6 /HPF 08/23 5:57 PM [facility] Not Available Not Available 08/26/2024 15:05:50 08/23/19 25 08/23/2024 Urina lysis dipst ick W Refle x Micro scopi c panel - Urine erythrocytes [#/area] in urine sediment by microscopy high power field 4 text: <6 /hpf RBC/H PF 4 <6 /HPF 08/23 5:57 PM [facility] Not Available Not Available 08/26/2024 15:05:50 08/23/19 25 08/23/2024 Urina lysis dipst ick W Refle x Micro scopi c panel - Urine bacteria [#/area] in urine sediment by microscopy high power field RARE text: none /hpf abnormal BACTE OLVIN (U) RARE (A) NONE /HPF 08/23 5:57 PM [facility] Not Available Not Available 08/26/2024 15:05:50 08/23/19 25 08/23/2024 Urina lysis dipst ick W Refle x Micro scopi c panel - Urine epithelial cells.squamo us [#/area] in urine sediment by microscopy high power field FEW text: /hpf SQUAM OUS EPITH ELIAL S FEW /HPF 08/23 5:57 PM [facility] Not Available Not Available 08/26/2024 15:05:50 08/23/19 25 08/23/2024 Urina lysis dipst ick W Refle x Micro scopi c panel - Urine interpretati on and review of laboratory results Abnorm al Not Available Not Available 15:05:50 08/25/19 25 08/24/2024 Lacta te [Mole s/vol ume] in Serum or Plasm a lactate [moles/volum e] in serum or plasma 1.6 text: 0.4 - 2.0 mmol/L LACTI C ACID VENOU S 1.6 0.4 - 2.0 MMOL/ L 08/24 5:13 AM [facility] Not Available Not Available 08/26/2024 15:05:52 08/25/19 25 08/24/2024 Compr ehens jeffrey metab olic 1999 panel - Serum or Plasm a glucose [mass/volume ] in serum or plasma 83 text: 70 - 99 mg/dL GLUCO SE 83 70 - 99 MG/DL 08/24 5:20 AM [facility] Not Available Not Available 08/26/2024 15:05:52 08/25/19 25 08/24/2024 Compr ehens jeffrey metab olic 1999 panel - Serum or Plasm a urea nitrogen [mass/volume ] in serum or plasma 5 text: 7 - 18 mg/dL low BUN 5 (L) 7 - 18 MG/DL 08/24 5:20 AM [facility] Not Available Not Available 08/26/2024 15:05:52 08/25/19 25 08/24/2024 Compr ehens jeffrey metab olic 1999 panel - Serum or Plasm a creatinine [mass/volume ] in serum or plasma 0.43 text: 0.55 - 1.02 mg/dL low CREAT ININE S/P/B 0.43 (L) 0.55 - 1.02 MG/DL 08/24 5:20 AM [facility] Not Available Not Available 08/26/2024 15:05:52 08/25/19 25 08/24/2024 Compr ehens jeffrey metab olic 2000 panel - Serum or Plasm a sodium [moles/volum e] in serum or plasma 138 text: 136 - 145 mmol/L SODIU M S/P/B 138 136 - 145 MMOL/ L 08/24 5:20 AM [facility] Not Available Not Available 08/26/2024 15:05:52 08/25/19 25 08/24/2024 Compr ehens jeffrey metab olic 2000 panel - Serum or Plasm a potassium [moles/volum e] in serum or plasma 3.1 text: 3.5 - 5.1 mmol/L low POTAS SIUM S/P/B 3.1 (L) 3.5 - 5.1 MMOL/ L 08/24 5:20 AM [facility] Not Available Not Available 08/26/2024 15:05:52 08/25/19 25 08/24/2024 Compr ehens jeffrey metab olic 2000 panel - Serum or Plasm a chloride [moles/volum e] in serum or plasma 102 text: 97 - 115 mmol/L CHLOR LOY S/P/B 102 97 - 115 MMOL/ L 08/24 5:20 AM [facility] Not Available Not Available 08/26/2024 15:05:52 08/25/19 25 08/24/2024 Compr ehens jeffrey metab olic 2000 panel - Serum or Plasm a carbon dioxide, total [moles/volum e] in serum or plasma 27.6 text: 21 - 32 mmol/L CO2 27.6 21 - 32 MMOL/ L 08/24 5:[address] [facility] Not Available Not Available 08/26/2024 15:05:52 08/25/19 25 08/24/2024 Compr ehens jeffrey metab olic 2000 panel - Serum or Plasm a calcium [mass/volume ] in serum or plasma 8.3 text: 8.5 - 10.1 mg/dL low CALCI UM S/P/B 8.3 (L) 8.5 - 10.1 MG/DL 08/24 5:[address] [facility] Not Available Not Available 08/26/2024 15:05:52 08/25/19 25 08/24/2024 Compr ehens jeffrey metab olic 2000 panel - Serum or Plasm a bilirubin.to jessica [mass/volume ] in serum or plasma 1.2 text: 0.2 - 1.2 mg/dL BILIR UBIN TOTAL S/P/B 1.2 0.2 - 1.2 MG/DL 08/24 5:[address] [facility] Not Available Not Available 08/26/2024 15:05:52 08/25/19 25 08/24/2024 Compr ehens jeffrey metab olic 1999 panel - Serum or Plasm a protein [mass/volume ] in serum or plasma 6.9 text: 6.4 - 8.2 g/dL TOTAL PROTE IN S/P/B 6.9 6.4 - 8.2 G/DL 08/24 5:20 AM [facility] Not Available Not Available 08/26/2024 15:05:52 08/25/19 25 08/24/2024 Compr ehens jeffrey metab olic 2000 panel - Serum or Plasm a albumin [mass/volume ] in serum or plasma 3.3 text: 3.4 - 5.0 g/dL low ALBUM IN S/P/B 3.3 (L) 3.4 - 5.0 G/DL 08/24 5:20 AM [facility] Not Available Not Available 08/26/2024 15:05:52 08/25/19 25 08/24/2024 Compr ehens jeffrey metab olic 2000 panel - Serum or Plasm a aspartate aminotransfe rase [enzymatic activity/vol ume] in serum or plasma 208 U/L low: 15U/Lh igh: 37U/L high AST 208 (H) 15 - 37 U/L 08/24 5:20 AM [facility] Not Available Not Available 08/26/2024 15:05:52 08/25/19 25 08/24/2024 Compr ehens jeffrey metab olic 2000 panel - Serum or Plasm a alanine aminotransfe rase [enzymatic activity/vol ume] in serum or plasma 99 U/L low: 14U/Lh igh: 55U/L high ALT 99 (H) 14 - 55 U/L 08/24 5:20 AM [facility] Not Available Not Available 08/26/2024 15:05:52 08/25/19 25 08/24/2024 Compr ehens jeffrey metab olic 2000 panel - Serum or Plasm a alkaline phosphatase [enzymatic activity/vol ume] in serum or plasma 80 U/L low: 50U/Lh igh: 136U/L ALKAL INE PHOSP HATAS E S/P/B 80 50 - 136 U/L 08/24 5:20 AM [facility] Not Available Not Available 08/26/2024 15:05:52 08/25/19 25 08/24/2024 Compr ehens jeffrey metab olic 2000 panel - Serum or Plasm a anion gap in serum or plasma 8.4 text: 2 - 10 mmol/L ANION GAP 8.4 2 - 10 MMOL/ L 08/24 5:20 AM [facility] Not Available Not Available 08/26/2024 15:05:52 08/25/19 25 08/24/2024 Compr ehens jeffrey metab olic 2000 panel - Serum or Plasm a urea nitrogen/cre atinine [mass ratio] in serum or plasma 11.6 low: 6high: 26 BUN CREAT ININE RATIO 11.6 6 - 26 08/24 5:20 AM [facility] Not Available Not Available 08/26/2024 15:05:52 08/25/19 25 08/24/2024 Compr ehens jeffrey metab olic 2000 panel - Serum or Plasm a albumin/glob ulin [mass ratio] in serum or plasma 0.9 text: 1.0 - 2.0 ratio low A/G RATIO 0.9 (L) 1.0 - 2.0 RATIO 08/24 5:20 AM [facility] Not Available Not Available 08/26/2024 15:05:52 08/25/19 25 08/24/2024 Compr ehens jeffrey metab olic 2000 panel - Serum or Plasm a glomerular filtration rate/1.73 sq M.predicted [volume rate/area] in serum, plasma or blood by creatinine-b ased formula (CKD-epi 2020) >90 text: >90 mL/min /1.73 M2 GFR ESTIM ATE >90 >90 ML/MS N/1.7 3 M2 08/24 5:20 AM [facility] Not Available Not Available 08/26/2024 15:05:52 08/25/1908/24/2024 Compr diana ag 2000 panel - Serum or Plasm a interpretati on and review of laboratory results Abnorm al Not Available Not Available 15:05:52 08/25/19 25 08/24/2024 CBC W Auto Diffe renti al panel - Blood leukocytes [#/volume] in blood by automated count 5.09 text: 4.5 - 11.0 x10'3/ uL WBC 5.09 4.5 - 11.0 x10'3 /uL 08/24 5:22 AM [facility] Not Available Not Available 08/26/2024 15:05:52 08/25/19 25 08/24/2024 CBC W Auto Diffe renti al panel - Blood erythrocytes [#/volume] in blood by automated count 3.48 text: 4.20 - 5.40 x10'6/ uL low RBC 3.48 (L) 4.20 - 5.40 x10'6 /uL 08/24 5:22 AM [facility] Not Available Not Available 08/26/2024 15:05:52 08/25/19 25 08/24/2024 CBC W Auto Diffe renti al panel - Blood hemoglobin [mass/volume ] in blood 12.6 text: 12.0 - 16.0 g/dL HGB 12.6 12.0 - 16.0 G/DL 08/24 5:22 AM [facility] Not Available Not Available 08/26/2024 15:05:52 08/25/19 25 08/24/2024 CBC W Auto Diffe renti al panel - Blood hematocrit [volume fraction] of blood 36.8 % low: 38%hig h: 48% low HCT 36.8 (L) 38.0 - 48.0 % 08/24 5:22 AM [facility] Not Available Not Available 08/26/2024 15:05:52 08/25/19 25 08/24/2024 CBC W Auto Diffe renti al panel - Blood MCV [entitic volume] 105.7 text: 81.0 - 99.0 fL high MCV 105.7 (H) 81.0 - 99.0 FL 08/24 5:22 AM [facility] Not Available Not Available 08/26/2024 15:05:52 08/25/19 25 08/24/2024 CBC W Auto Diffe renti al panel - Blood MCH [entitic mass] 36.2 pg low: 27pghi gh: 31pg high MCH 36.2 (H) 27.0 - 31.0 PG 08/24 5:22 AM [facility] Not Available Not Available 08/26/2024 15:05:52 08/25/19 25 08/24/2024 CBC W Auto Diffe renti al panel - Blood MCHC [mass/volume ] 34.2 text: 32.0 - 36.0 g/dL MCHC 34.2 32.0 - 36.0 G/DL 08/24 5:22 AM [facility] Not Available Not Available 08/26/2024 15:05:52 08/25/19 25 08/24/2024 CBC W Auto Diffe renti al panel - Blood erythrocyte distribution width [entitic volume] by automated count 12.6 % low: 11.5%h igh: 14.5% RDW 12.6 11.5 - 14.5 % 08/24 5:22 AM [facility] Not Available Not Available 08/26/2024 15:05:52 08/25/19 25 08/24/2024 CBC W Auto Diffe renti al panel - Blood platelets [#/volume] in blood 170 text: 130 - 400 x10'3/ uL PLT 170 130 - 400 x10'3 /uL 08/24 5:22 AM [facility] Not Available Not Available 08/26/2024 15:05:52 08/25/19 25 08/24/2024 CBC W Auto Diffe renti al panel - Blood platelet mean volume [entitic volume] in blood 10 text: 9.3 - 12.2 fL MPV 10.0 9.3 - 12.2 FL 08/24 5:22 AM [facility] Not Available Not Available 08/26/2024 15:05:52 08/25/19 25 08/24/2024 CBC W Auto Diffe renti al panel - Blood differential cell count method - blood AUTOMA RAD DIFFER ENTIAL DIFFE RENTI AL TYPE AUTOM ATED DIFFE RENTI AL 08/24 5:24 AM [facility] Not Available Not Available 08/26/2024 15:05:52 08/25/19 25 08/24/2024 CBC W Auto Diffe renti al panel - Blood neutrophils/ 100 leukocytes in blood by automated count 64.8 % NEUTR OPHIL S % 64.8 % 08/24 5:24 AM [facility] Not Available Not Available 08/26/2024 15:05:52 08/25/19 25 08/24/2024 CBC W Auto Diffe renti al panel - Blood lymphocytes/ 100 leukocytes in blood by automated count 25.3 % LYMPH OCYTE S % 25.3 % 08/24 5:24 AM [facility] Not Available Not Available 08/26/2024 15:05:52 08/25/19 25 08/24/2024 CBC W Auto Diffe renti al panel - Blood monocytes/10 0 leukocytes in blood by automated count 8.3 % MONOC YTES % 8.3 % 08/24 5:24 AM [facility] Not Available Not Available 08/26/2024 15:05:52 08/25/19 25 08/24/2024 CBC W Auto Diffe renti al panel - Blood eosinophils/ 100 leukocytes in blood by automated count 0.4 % EOSIN OPHIL S 0.4 % 08/24 5:24 AM [facility] Not Available Not Available 08/26/2024 15:05:52 08/25/19 25 08/24/2024 CBC W Auto Diffe renti al panel - Blood basophils/10 0 leukocytes in blood by automated count 0.8 % BASOP HILS 0.8 % 08/24 5:24 AM [facility] Not Available Not Available 08/26/2024 15:05:52 08/25/19 25 08/24/2024 CBC W Auto Diffe renti al panel - Blood immature granulocytes /100 leukocytes in blood by automated count 0.4 % IMMAT URE GRANS % 0.4 % 08/24 5:24 AM [facility] Not Available Not Available 08/26/2024 15:05:52 08/25/19 25 08/24/2024 CBC W Auto Diffe renti al panel - Blood neutrophils [#/volume] in blood 3.3 text: 1.80 - 7.70 x10'3/ uL ABS. NEUTR OPHIL S 3.30 1.80 - 7.70 x10'3 /uL 08/24 5:24 AM [facility] Not Available Not Available 08/26/2024 15:05:52 08/25/19 25 08/24/2024 CBC W Auto Diffe renti al panel - Blood lymphocytes [#/volume] in blood 1.29 text: 1.00 - 4.80 x10'3/ uL ABS. LYMPH OCYTE S 1.29 1.00 - 4.80 x10'3 /uL 08/24 5:24 AM [facility] Not Available Not Available 08/26/2024 15:05:52 08/25/19 25 08/24/2024 CBC W Auto Diffe renti al panel - Blood monocytes [#/volume] in blood 0.42 text: 0.24 - 0.86 x10'3/ uL ABS. MONOC YTES 0.42 0.24 - 0.86 x10'3 /uL 08/24 5:24 AM [facility] Not Available Not Available 08/26/2024 15:05:52 08/25/19 25 08/24/2024 CBC W Auto Diffe renti al panel - Blood eosinophils [#/volume] in blood 0.02 text: 0.04 - 0.36 x10'3/ uL low ABS. EOSIN OPHIL S 0.02 (L) 0.04 - 0.36 x10'3 /uL 08/24 5:24 AM [facility] Not Available Not Available 08/26/2024 15:05:52 08/25/19 25 08/24/2024 CBC W Auto Diffe renti al panel - Blood basophils [#/volume] in blood 0.04 text: 0.01 - 0.08 x10'3/ uL ABS. BASOP HILS 0.04 0.01 - 0.08 x10'3 /uL 08/24 5:24 AM [facility] Not Available Not Available 08/26/2024 15:05:52 08/25/19 25 08/24/2024 CBC W Auto Diffe renti al panel - Blood immature granulocytes [#/volume] in blood 0.02 text: 0.00 - 0.49 x10'3/ uL ABS. IMMAT URE GRANU LOCYT ES 0.02 0.00 - 0.49 x10'3 /uL 08/24 5:24 AM [facility] Not Available Not Available 08/26/2024 15:05:52 08/25/19 25 08/24/2024 CBC W Auto Diffe renti al panel - Blood erythrocytes [morphology] in blood by automated count SLIDE REVIEW ED RBC MORPH OLOGY SLIDE REVIE WED 08/24 5:24 AM [facility] Not Available Not Available 08/26/2024 15:05:52 08/25/19 25 08/24/2024 CBC W Auto Diffe renti al panel - Blood macrocytes [presence] in blood 1+ MACRO 1+ 08/24 5:24 AM [facility] Not Available Not Available 08/26/2024 15:05:52 08/25/19 25 08/24/2024 CBC W Auto Diffe renti al panel - Blood platelets [#/volume] in blood by automated count ADEQUA TE PLT EST. ADEQU ATE 08/24 5:24 AM [facility] Not Available Not Available 08/26/2024 15:05:52 08/25/19 25 08/24/2024 CBC W Auto Diffe renti al panel - Blood interpretati on and review of laboratory results Abnorm al Not Available Not Available 15:05:52 08/25/19 25 08/24/2024 Magne sium [Mass /volu me] in Serum or Plasm a magnesium [mass/volume ] in serum or plasma 2.3 text: 1.8 - 2.4 mg/dL MAGNE SIUM 2.3 1.8 - 2.4 MG/DL 08/24 5:20 AM [facility] Not Available Not Available 08/26/2024 15:05:52 08/25/19 25 08/24/2024 Lacta te [Mole s/vol ume] in Serum or Plasm a lactate [moles/volum e] in serum or plasma 2.6 text: 0.4 - 2.0 mmol/L high LACTI C ACID VENOU S 2.6 (H) 0.4 - 2.0 MMOL/ L 08/24 3:08 AM [facility] Not Available Not Available 08/26/2024 15:05:52 08/25/19 25 08/24/2024 Lacta te [Mole s/vol ume] in Serum or Plasm a interpretati on and review of laboratory results Abnorm al Not Available Not Available 15:05:52 08/25/19 25 08/24/2024 Lacta te [Mole s/vol ume] in Serum or Plasm a lactate [moles/volum e] in serum or plasma 5.7 text: 0.4 - 2.0 mmol/L critical high LACTI C ACID VENOU S 5.7 (HH) 0.4 - 2.0 MMOL/ L 08/23 11:56 PM [facility] Not Available Not Available 08/26/2024 15:05:52 08/25/19 25 08/24/2024 Lacta te [Mole s/vol ume] in Serum or Plasm a interpretati on and review of laboratory results Abnorm al Not Available Not Available 15:05:52 08/25/19 25 08/24/2024 C react jeffrey prote in [Mass /volu me] in Serum or Plasm a C reactive protein [mass/volume ] in serum or plasma 0.89 mg/dL high: 0.29mg /dL high C-INES CTIVE PROTE IN 0.89 (H) <0.29 mg/dL 08/23 11:52 PM [facility] Not Available Not Available 08/26/2024 15:05:52 08/25/19 25 08/24/2024 C react jeffrey prote in [Mass /volu me] in Serum or Plasm a interpretati on and review of laboratory results Abnorm al Not Available Not Available 15:05:52 08/25/19 25 08/24/2024 Folat e [Mass /volu me] in Serum or Plasm a folate [mass/volume ] in serum or plasma 2.8 text: 3.1 - 17.5 NG/mL low FOLAT E 2.8 (L) 3.1 - 17.5 NG/ML 08/24 12:19 AM [facility] Not Available Not Available 08/26/2024 15:05:52 08/25/19 25 08/24/2024 Folat e [Mass /volu me] in Serum or Plasm a interpretati on and review of laboratory results Abnorm al Not Available Not Available 15:05:52 08/25/19 25 08/24/2024 Cobal loomis (Aysha min B12) [Mass /volu me] in Serum or Plasm a cobalamin (vitamin B12) [mass/volume ] in serum or plasma 496 pg/mL low: 254pg/ mLhigh : 1320pg /mL VITAM IN B12 S/P/B 496 254 - 1,320 PG/ML 08/24 12:19 AM [facility] Not Available Not Available 08/26/2024 15:05:52 08/25/19 25 08/24/2024 Acute hepat itis 2000 panel - Serum hepatitis B virus surface Ag [presence] in serum NON-RE ACTIVE text: non-re active HEPAT ITIS B SURFA CE AG NON-R EACTI VE NON-R EACTI VE 08/24 4:28 AM [facility] Not Available Not Available 08/26/2024 15:05:52 08/25/19 25 08/24/2024 Acute hepat itis 2000 panel - Serum hepatitis B virus core IgM Ab [presence] in serum NON-RE ACTIVE text: non-re active HEP B CORE IGM NON-R EACTI VE NON-R EACTI VE 08/24 4:28 AM [facility] Not Available Not Available 08/26/2024 15:05:52 08/25/19 25 08/24/2024 Acute hepat itis 2000 panel - Serum hepatitis A virus IgM Ab [presence] in serum NON-RE ACTIVE text: non-re active HAV IGM NON-R EACTI VE NON-R EACTI VE 08/24 4:28 AM [facility] Not Available Not Available 08/26/2024 15:05:52 08/25/19 25 08/24/2024 Acute hepat itis 2000 panel - Serum hepatitis C virus Ab [presence] in serum NON-RE ACTIVE text: non-re active HEPAT ITIS C AB NON-R EACTI VE NON-R EACTI VE 08/24 4:28 AM [facility] Not Available Not Available 08/26/2024 15:05:52 08/25/19 25 08/24/2024 Lipas e [Enzy matic activ ity/v olume ] in Serum or Plasm a lipase [enzymatic activity/vol ume] in serum or plasma 22 text: 13 - 75 units/ L LIPAS E 22 13 - 75 UNITS /L 08/23 11:53 PM [facility] Not Available Not Available 08/26/2024 15:05:52 08/26/19 25 08/25/2024 CBC W Auto Diffe renti al panel - Blood leukocytes [#/volume] in blood by automated count 4.14 text: 4.5 - 11.0 x10'3/ uL low WBC 4.14 (L) 4.5 - 11.0 x10'3 /uL 08/25 12:23 PM [facility] Not Available Not Available 08/26/2024 15:05:53 08/26/19 25 08/25/2024 CBC W Auto Diffe renti al panel - Blood erythrocytes [#/volume] in blood by automated count 3.93 text: 4.20 - 5.40 x10'6/ uL low RBC 3.93 (L) 4.20 - 5.40 x10'6 /uL 08/25 12:23 PM [facility] Not Available Not Available 08/26/2024 15:05:53 08/26/19 25 08/25/2024 CBC W Auto Diffe renti al panel - Blood hemoglobin [mass/volume ] in blood 14.5 text: 12.0 - 16.0 g/dL HGB 14.5 12.0 - 16.0 G/DL 08/25 12:23 PM [facility] Not Available Not Available 08/26/2024 15:05:53 08/26/19 25 08/25/2024 CBC W Auto Diffe renti al panel - Blood hematocrit [volume fraction] of blood 42.2 % low: 38%hig h: 48% HCT 42.2 38.0 - 48.0 % 08/25 12:23 PM [facility] Not Available Not Available 08/26/2024 15:05:53 08/26/19 25 08/25/2024 CBC W Auto Diffe renti al panel - Blood MCV [entitic volume] 107.4 text: 81.0 - 99.0 fL high MCV 107.4 (H) 81.0 - 99.0 FL 08/25 12:23 PM [facility] Not Available Not Available 08/26/2024 15:05:53 08/26/19 25 08/25/2024 CBC W Auto Diffe renti al panel - Blood MCH [entitic mass] 36.9 pg low: 27pghi gh: 31pg high MCH 36.9 (H) 27.0 - 31.0 PG 08/25 12:23 PM [facility] Not Available Not Available 08/26/2024 15:05:53 08/26/19 25 08/25/2024 CBC W Auto Diffe renti al panel - Blood MCHC [mass/volume ] 34.4 text: 32.0 - 36.0 g/dL MCHC 34.4 32.0 - 36.0 G/DL 08/25 12:23 PM [facility] Not Available Not Available 08/26/2024 15:05:53 08/26/19 25 08/25/2024 CBC W Auto Diffe renti al panel - Blood erythrocyte distribution width [entitic volume] by automated count 12.2 % low: 11.5%h igh: 14.5% RDW 12.2 11.5 - 14.5 % 08/25 12:23 PM [facility] Not Available Not Available 08/26/2024 15:05:53 08/26/19 25 08/25/2024 CBC W Auto Diffe renti al panel - Blood platelets [#/volume] in blood 182 text: 130 - 400 x10'3/ uL PLT 182 130 - 400 x10'3 /uL 08/25 12:23 PM [facility] Not Available Not Available 08/26/2024 15:05:53 08/26/19 25 08/25/2024 CBC W Auto Diffe renti al panel - Blood platelet mean volume [entitic volume] in blood 10.3 text: 9.3 - 12.2 fL MPV 10.3 9.3 - 12.2 FL 08/25 12:23 PM [facility] Not Available Not Available 08/26/2024 15:05:53 08/26/19 25 08/25/2024 CBC W Auto Diffe renti al panel - Blood differential cell count method - blood AUTOMA RAD DIFFER ENTIAL DIFFE RENTI AL TYPE AUTOM ATED DIFFE RENTI AL 08/25 1:26 PM [facility] Not Available Not Available 08/26/2024 15:05:53 08/26/19 25 08/25/2024 CBC W Auto Diffe renti al panel - Blood neutrophils/ 100 leukocytes in blood by automated count 64 % NEUTR OPHIL S % 64.0 % 08/25 1:26 PM [facility] Not Available Not Available 08/26/2024 15:05:53 08/26/19 25 08/25/2024 CBC W Auto Diffe renti al panel - Blood lymphocytes/ 100 leukocytes in blood by automated count 24.4 % LYMPH OCYTE S % 24.4 % 08/25 1:26 PM [facility] Not Available Not Available 08/26/2024 15:05:53 08/26/19 25 08/25/2024 CBC W Auto Diffe renti al panel - Blood monocytes/10 0 leukocytes in blood by automated count 8.7 % MONOC YTES % 8.7 % 08/25 1:26 PM [facility] Not Available Not Available 08/26/2024 15:05:53 08/26/19 25 08/25/2024 CBC W Auto Diffe renti al panel - Blood eosinophils/ 100 leukocytes in blood by automated count 2.2 % EOSIN OPHIL S 2.2 % 08/25 1:26 PM [facility] Not Available Not Available 08/26/2024 15:05:53 08/26/19 25 08/25/2024 CBC W Auto Diffe renti al panel - Blood basophils/10 0 leukocytes in blood by automated count 0.5 % BASOP HILS 0.5 % 08/25 1:26 PM [facility] Not Available Not Available 08/26/2024 15:05:53 08/26/19 25 08/25/2024 CBC W Auto Diffe renti al panel - Blood immature granulocytes /100 leukocytes in blood by automated count 0.2 % IMMAT URE GRANS % 0.2 % 08/25 1:26 PM [facility] Not Available Not Available 08/26/2024 15:05:53 08/26/19 25 08/25/2024 CBC W Auto Diffe renti al panel - Blood neutrophils [#/volume] in blood 2.65 text: 1.80 - 7.70 x10'3/ uL ABS. NEUTR OPHIL S 2.65 1.80 - 7.70 x10'3 /uL 08/25 1:26 PM [facility] Not Available Not Available 08/26/2024 15:05:53 08/26/19 25 08/25/2024 CBC W Auto Diffe renti al panel - Blood lymphocytes [#/volume] in blood 1.01 text: 1.00 - 4.80 x10'3/ uL ABS. LYMPH OCYTE S 1.01 1.00 - 4.80 x10'3 /uL 08/25 1:26 PM [facility] Not Available Not Available 08/26/2024 15:05:53 08/26/19 25 08/25/2024 CBC W Auto Diffe renti al panel - Blood monocytes [#/volume] in blood 0.36 text: 0.24 - 0.86 x10'3/ uL ABS. MONOC YTES 0.36 0.24 - 0.86 x10'3 /uL 08/25 1:26 PM [facility] Not Available Not Available 08/26/2024 15:05:53 08/26/19 25 08/25/2024 CBC W Auto Diffe renti al panel - Blood eosinophils [#/volume] in blood 0.09 text: 0.04 - 0.36 x10'3/ uL ABS. EOSIN OPHIL S 0.09 0.04 - 0.36 x10'3 /uL 08/25 1:26 PM [facility] Not Available Not Available 08/26/2024 15:05:53 08/26/19 25 08/25/2024 CBC W Auto Diffe renti al panel - Blood basophils [#/volume] in blood 0.02 text: 0.01 - 0.08 x10'3/ uL ABS. BASOP HILS 0.02 0.01 - 0.08 x10'3 /uL 08/25 1:26 PM [facility] Not Available Not Available 08/26/2024 15:05:53 08/26/19 25 08/25/2024 CBC W Auto Diffe renti al panel - Blood immature granulocytes [#/volume] in blood 0.01 text: 0.00 - 0.49 x10'3/ uL ABS. IMMAT URE GRANU LOCYT ES 0.01 0.00 - 0.49 x10'3 /uL 08/25 1:26 PM [facility] Not Available Not Available 08/26/2024 15:05:53 08/26/19 25 08/25/2024 CBC W Auto Diffe renti al panel - Blood erythrocytes [morphology] in blood by automated count SLIDE REVIEW ED RBC MORPH OLOGY SLIDE REVIE WED 08/25 1:26 PM [facility] Not Available Not Available 08/26/2024 15:05:53 08/26/19 25 08/25/2024 CBC W Auto Diffe renti al panel - Blood macrocytes [presence] in blood 1+ MACRO 1+ 08/25 1:26 PM [facility] Not Available Not Available 08/26/2024 15:05:53 08/26/19 25 08/25/2024 CBC W Auto Diffe renti al panel - Blood platelets [#/volume] in blood by automated count ADEQUA TE PLT EST. ADEQU ATE 08/25 1:26 PM [facility] Not Available Not Available 08/26/2024 15:05:53 08/26/19 25 08/25/2024 CBC W Auto Diffe renti al panel - Blood interpretati on and review of laboratory results Abnorm al Not Available Not Available 15:05:53 08/26/19 25 08/25/2024 Basic metab olic 2000 panel - Serum or Plasm a glucose [mass/volume ] in serum or plasma 76 text: 70 - 99 mg/dL GLUCO SE 76 70 - 99 MG/DL 08/25 10:17 AM [facility] Not Available Not Available 08/26/2024 15:05:53 08/26/19 25 08/25/2024 Basic metab olic 2000 panel - Serum or Plasm a urea nitrogen [mass/volume ] in serum or plasma 3 text: 7 - 18 mg/dL low BUN 3 (L) 7 - 18 MG/DL 08/25 10:17 AM [facility] Not Available Not Available 08/26/2024 15:05:53 08/26/19 25 08/25/2024 Basic metab olic 2000 panel - Serum or Plasm a creatinine [mass/volume ] in serum or plasma 0.38 text: 0.55 - 1.02 mg/dL low CREAT ININE S/P/B 0.38 (L) 0.55 - 1.02 MG/DL 08/25 10:17 AM [facility] Not Available Not Available 08/26/2024 15:05:53 08/26/19 25 08/25/2024 Basic metab olic 2000 panel - Serum or Plasm a sodium [moles/volum e] in serum or plasma 133 text: 136 - 145 mmol/L low SODIU M S/P/B 133 (L) 136 - 145 MMOL/ L 08/25 10:17 AM [facility] Not Available Not Available 08/26/2024 15:05:53 08/26/19 25 08/25/2024 Basic metab olic 2000 panel - Serum or Plasm a potassium [moles/volum e] in serum or plasma 3.6 text: 3.5 - 5.1 mmol/L POTAS SIUM S/P/B 3.6 3.5 - 5.1 MMOL/ L 08/25 10:17 AM [facility] Not Available Not Available 08/26/2024 15:05:53 08/26/19 25 08/25/2024 Basic metab olic 2000 panel - Serum or Plasm a chloride [moles/volum e] in serum or plasma 101 text: 97 - 115 mmol/L CHLOR LOY S/P/B 101 97 - 115 MMOL/ L 08/25 10:17 AM [facility] Not Available Not Available 08/26/2024 15:05:53 08/26/19 25 08/25/2024 Basic metab olic 2000 panel - Serum or Plasm a carbon dioxide, total [moles/volum e] in serum or plasma 18.9 text: 21 - 32 mmol/L low CO2 18.9 (L) 21 - 32 MMOL/ L 08/25 10:17 AM [facility] Not Available Not Available 08/26/2024 15:05:53 08/26/19 25 08/25/2024 Basic metab olic 2000 panel - Serum or Plasm a calcium [mass/volume ] in serum or plasma 8.6 text: 8.5 - 10.1 mg/dL CALCI UM S/P/B 8.6 8.5 - 10.1 MG/DL 08/25 10:17 AM [facility] Not Available Not Available 08/26/2024 15:05:53 08/26/19 25 08/25/2024 Basic metab olic 2000 panel - Serum or Plasm a anion gap in serum or plasma 13.1 text: 2 - 10 mmol/L high ANION GAP 13.1 (H) 2 - 10 MMOL/ L 08/25 10:17 AM [facility] Not Available Not Available 08/26/2024 15:05:53 08/26/19 25 08/25/2024 Basic metab olic 2000 panel - Serum or Plasm a urea nitrogen/cre atinine [mass ratio] in serum or plasma 8 low: 6high: 26 BUN CREAT ININE RATIO 8.0 6 - 26 08/25 10:17 AM [facility] Not Available Not Available 08/26/2024 15:05:53 08/26/19 25 08/25/2024 Basic metab olic 2000 panel - Serum or Plasm a glomerular filtration rate/1.73 sq M.predicted [volume rate/area] in serum, plasma or blood by creatinine-b ased formula (CKD-epi 2020) >90 text: >90 mL/min /1.73 M2 GFR ESTIM ATE >90 >90 ML/MS N/1.7 3 M2 08/25 10:17 AM [facility] Not Available Not Available 08/26/2024 15:05:53 08/26/1908/25/2024 Basic metab olic 2000 panel - Serum or Plasm a interpretati on and review of laboratory results Abnorm al Not Available Not Available 15:05:53 08/27/19 25 08/26/2024 CBC panel - Blood by Autom ated count leukocytes [#/volume] in blood by automated count 4.21 text: 4.5 - 11.0 x10'3/ uL low WBC 4.21 (L) 4.5 - 11.0 x10'3 /uL 08/26 5:32 AM [facility] Not Available Not Available 08/26/2024 15:05:53 08/27/19 25 08/26/2024 CBC panel - Blood by Autom ated count erythrocytes [#/volume] in blood by automated count 3.96 text: 4.20 - 5.40 x10'6/ uL low RBC 3.96 (L) 4.20 - 5.40 x10'6 /uL 08/26 5:32 AM [facility] Not Available Not Available 08/26/2024 15:05:53 08/27/19 25 08/26/2024 CBC panel - Blood by Autom ated count hemoglobin [mass/volume ] in blood 14.3 text: 12.0 - 16.0 g/dL HGB 14.3 12.0 - 16.0 G/DL 08/26 5:32 AM [facility] Not Available Not Available 08/26/2024 15:05:53 08/27/19 25 08/26/2024 CBC panel - Blood by Autom ated count hematocrit [volume fraction] of blood 42.9 % low: 38%hig h: 48% HCT 42.9 38.0 - 48.0 % 08/26 5:32 AM [facility] Not Available Not Available 08/26/2024 15:05:53 08/27/19 25 08/26/2024 CBC panel - Blood by Autom ated count MCV [entitic volume] 108.3 text: 81.0 - 99.0 fL high MCV 108.3 (H) 81.0 - 99.0 FL 08/26 5:32 AM [facility] Not Available Not Available 08/26/2024 15:05:53 08/27/19 25 08/26/2024 CBC panel - Blood by Autom ated count MCH [entitic mass] 36.1 pg low: 27pghi gh: 31pg high MCH 36.1 (H) 27.0 - 31.0 PG 08/26 5:32 AM [facility] Not Available Not Available 08/26/2024 15:05:53 08/27/19 25 08/26/2024 CBC panel - Blood by Autom ated count MCHC [mass/volume ] 33.3 text: 32.0 - 36.0 g/dL MCHC 33.3 32.0 - 36.0 G/DL 08/26 5:32 AM [facility] Not Available Not Available 08/26/2024 15:05:53 08/27/19 25 08/26/2024 CBC panel - Blood by Autom ated count erythrocyte distribution width [entitic volume] by automated count 12.1 % low: 11.5%h igh: 14.5% RDW 12.1 11.5 - 14.5 % 08/26 5:32 AM [facility] Not Available Not Available 08/26/2024 15:05:53 08/27/19 25 08/26/2024 CBC panel - Blood by Autom ated count platelets [#/volume] in blood 179 text: 130 - 400 x10'3/ uL PLT 179 130 - 400 x10'3 /uL 08/26 5:32 AM [facility] Not Available Not Available 08/26/2024 15:05:53 08/27/19 25 08/26/2024 CBC panel - Blood by Autom ated count platelet mean volume [entitic volume] in blood 10.2 text: 9.3 - 12.2 fL MPV 10.2 9.3 - 12.2 FL 08/26 5:32 AM [facility] Not Available Not Available 08/26/2024 15:05:53 08/27/19 25 08/26/2024 CBC panel - Blood by Autom ated count erythrocytes [morphology] in blood by automated count SLIDE REVIEW ED RBC MORPH OLOGY SLIDE REVIE WED 08/26 5:33 AM [facility] Not Available Not Available 08/26/2024 15:05:53 08/27/19 25 08/26/2024 CBC panel - Blood by Autom ated count macrocytes [presence] in blood 1+ MACRO 1+ 08/26 5:33 AM [facility] Not Available Not Available 08/26/2024 15:05:53 08/27/19 25 08/26/2024 CBC panel - Blood by Autom ated count platelets [#/volume] in blood by automated count ADEQUA TE PLT EST. ADEQU ATE 08/26 5:33 AM [facility] Not Available Not Available 08/26/2024 15:05:53 08/27/19 25 08/26/2024 CBC panel - Blood by Autom ated count interpretati on and review of laboratory results Abnorm al Not Available Not Available 15:05:53 08/27/19 25 08/26/2024 Basic metab olic 2000 panel - Serum or Plasm a glucose [mass/volume ] in serum or plasma 96 text: 70 - 99 mg/dL GLUCO SE 96 70 - 99 MG/DL 08/26 5:07 AM [facility] Not Available Not Available 08/26/2024 15:05:53 08/27/19 25 08/26/2024 Basic metab olic 2000 panel - Serum or Plasm a urea nitrogen [mass/volume ] in serum or plasma 6 text: 7 - 18 mg/dL low BUN 6 (L) 7 - 18 MG/DL 08/26 5:07 AM [facility] Not Available Not Available 08/26/2024 15:05:53 08/27/19 25 08/26/2024 Basic metab olic 2000 panel - Serum or Plasm a creatinine [mass/volume ] in serum or plasma 0.52 text: 0.55 - 1.02 mg/dL low CREAT ININE S/P/B 0.52 (L) 0.55 - 1.02 MG/DL 08/26 5:07 AM [facility] Not Available Not Available 08/26/2024 15:05:53 08/27/19 25 08/26/2024 Basic metab olic 2000 panel - Serum or Plasm a sodium [moles/volum e] in serum or plasma 135 text: 136 - 145 mmol/L low SODIU M S/P/B 135 (L) 136 - 145 MMOL/ L 08/26 5:07 AM [facility] Not Available Not Available 08/26/2024 15:05:53 08/27/19 25 08/26/2024 Basic metab olic 2000 panel - Serum or Plasm a potassium [moles/volum e] in serum or plasma 3.8 text: 3.5 - 5.1 mmol/L POTAS SIUM S/P/B 3.8 3.5 - 5.1 MMOL/ L 08/26 5:07 AM [facility] Not Available Not Available 08/26/2024 15:05:53 08/27/19 25 08/26/2024 Basic metab olic 2000 panel - Serum or Plasm a chloride [moles/volum e] in serum or plasma 104 text: 97 - 115 mmol/L CHLOR LOY S/P/B 104 97 - 115 MMOL/ L 08/26 5:07 AM [facility] Not Available Not Available 08/26/2024 15:05:53 08/27/19 25 08/26/2024 Basic metab olic 2000 panel - Serum or Plasm a carbon dioxide, total [moles/volum e] in serum or plasma 22.1 text: 21 - 32 mmol/L CO2 22.1 21 - 32 MMOL/ L 08/26 5:07 AM [facility] Not Available Not Available 08/26/2024 15:05:53 08/27/19 25 08/26/2024 Basic metab olic 2000 panel - Serum or Plasm a calcium [mass/volume ] in serum or plasma 8.9 text: 8.5 - 10.1 mg/dL CALCI UM S/P/B 8.9 8.5 - 10.1 MG/DL 08/26 5:07 AM [facility] Not Available Not Available 08/26/2024 15:05:53 08/27/19 25 08/26/2024 Basic metab olic 2000 panel - Serum or Plasm a anion gap in serum or plasma 8.9 text: 2 - 10 mmol/L ANION GAP 8.9 2 - 10 MMOL/ L 08/26 5:07 AM [facility] Not Available Not Available 08/26/2024 15:05:53 08/27/19 25 08/26/2024 Basic metab olic 2000 panel - Serum or Plasm a urea nitrogen/cre atinine [mass ratio] in serum or plasma 11.6 low: 6high: 26 BUN CREAT ININE RATIO 11.6 6 - 26 08/26 5:07 AM [facility] Not Available Not Available 08/26/2024 15:05:53 08/27/19 25 08/26/2024 Basic metab olic 2000 panel - Serum or Plasm a glomerular filtration rate/1.73 sq M.predicted [volume rate/area] in serum, plasma or blood by creatinine-b ased formula (CKD-epi 2020) >90 text: >90 mL/min /1.73 M2 GFR ESTIM ATE >90 >90 ML/MS N/1.7 3 M2 08/26 5:07 AM [facility] Not Available Not Available 08/26/2024 15:05:53 08/27/19 25 08/26/2024 Basic metab olic 2000 panel - Serum or Plasm a interpretati on and review of laboratory results Abnorm al Not Available Not Available 15:05:53 11/05/19 25 11/05/2024 NUSWA B VAGIN ITIS PLUS (VG+) atopobium vaginae HIGH - 2 score abnormal Not Available [facility] ([facility]) [address] [place], [address], 11/07/2024 06:52:02 11/05/19 25 11/05/2024 NUSWA B VAGIN ITIS PLUS (VG+) bvab 2 HIGH - 2 score abnormal Not Available [facility] ([facility]) [address] [place], [address], 11/07/2024 06:52:02 11/05/19 25 11/05/2024 NUSWA B VAGIN ITIS PLUS (VG+) megasphaera 1 HIGH - 2 score abnormal Calcu late total score by merna perez the 3 indiv idual bacte rial vagin osis (BV) marke r score s toget her. Total score is inter prete d as follo ws: Total score 0-1: Indic ates the absen ce of BV. Total score 2: Indet ermin ate for BV. Addit ional clini aidan data shoul d be evalu ated to estab uvaldo a diagn osis. Total score 3-6: Indic ates the prese nce of BV. Not Available [facility] ([facility]) [address] [place], [address], 11/07/2024 06:52:02 11/05/1911/06/2024 NUSWA B VAGIN ITIS PLUS (VG+) glenis albicans, NELLY POSITI VE negati ve abnormal Not Available [facility] ([facility]) [address] [place], [address], 11/07/2024 06:52:02 11/05/1911/06/2024 NUSWA B VAGIN ITIS PLUS (VG+) glenis glabrata, NELLY POSITI VE negati ve abnormal Publi shed data demon strat e that up to 65% of Paola da glabr fernando ident ified in cases of vagin al paola diasi s have decre ased susce ptibi lity to fluco nazol e. Not Available [facility] ([facility]) [address] [place], [address], 11/07/2024 06:52:02 11/05/1911/06/2024 NUSWA B VAGIN ITIS PLUS (VG+) trich vag by NELLY NEGATI VE negati ve Not Available [facility] ([facility]) [address] [place], [address], 11/07/2024 06:52:02 11/05/1911/06/2024 NUSWA B VAGIN ITIS PLUS (VG+) chlamydia trachomatis, NELLY POSITI VE negati ve abnormal Not Available [facility] ([facility]) [address] [facility], [place], [address], 11/07/2024 06:52:02 11/05/1911/06/2024 NUSWA B VAGIN ITIS PLUS (VG+) neisseria gonorrhoeae, NELLY NEGATI VE negati ve Not Available [facility] ([facility]) [address] [facility], [place], [address], 11/07/2024 06:52:02 11/05/1911/06/2024 IGP, APTIM A HPV, RFX 16/18 ,45 diagnosis: COMMEN T NEGIMAN JEFFREY FOR INTRA EPITH ELIAL LESIO N OR MELVIN DC . Not Available [facility] ([facility]) [address] [facility], [place], [address], 11/07/2024 07:05:58 11/05/1911/06/2024 IGP, APTIM A HPV, RFX 16/18 ,45 specimen adequacy: COMMEN T Satis facto ry for evalu ation . Endoc ervic al and/o r squam ous metap lasti c cells (endo cervi aidan compo nent) are prese nt. Not Available [facility] ([facility]) [address] [facility], [place], [address], 11/07/2024 07:05:58 11/05/19 25 11/06/2024 IGP, APTIM A HPV, RFX 16/18 ,45 clinician provided ICD10: MARTÍN Sr Z01.4 19 Not Available [facility] ([facility]) [address] [place], [address], 11/07/2024 07:05:58 11/05/19 25 11/06/2024 IGP, APTIM A HPV, RFX 16/18 ,45 performed by: MARTÍN T Shamar Olvera , Cytol ogist (ASCP ) Not Available [facility] ([facility]) [address] [place], [address], 11/07/2024 07:05:58 11/05/19 25 11/06/2024 IGP, APTIM A HPV, RFX 16/18 ,45 . . Not Available [facility] ([facility]) [address] [facility], [place], [address], 11/07/2024 07:05:58 11/05/19 25 11/06/2024 IGP, APTIM A HPV, RFX 16/18 ,45 note: COMMEN T The Pap smear is a scree caryl test desig adelita to aid in the detec tion of christina ligna nt and malig nant condi tions of the uteri ne cervi x. It is not a diagn ostic proce dure and shoul d not be used as the sole means of detec ting cervi aidan cance r. Both false -posi tive and false -nega tive repor ts do occur . Not Available [facility] ([facility]) [address] [facility], [place], [address], 11/07/2024 07:05:58 11/05/19 25 11/06/2024 IGP, APTIM A HPV, RFX 16/18 ,45 HPV aptima POSITI VE negati ve abnormal This nucle ic acid ampli ficat ion test detec ts fourt een high- risk HPV types (16,1 8,31, 33,35 ,39,4 5,51, 52,56 ,58,5 9,66, 68) witho ut diffe renti ation . Not Available [facility] ([facility]) [address] [facility], [place], [address], 11/07/2024 07:05:58 11/05/1911/06/2024 IGP, APTIM A HPV, RFX 16/18 ,45 HPV genotype reflex COMMEN T Crite olvin met, see HPV Genot ype resul ts. Not Available [facility] ([facility]) [address] [place], [address], 11/07/2024 07:05:58 11/05/19 25 11/07/2024 HPV GENOT YPES 16/18 ,45 HPV genotype 16 Negati ve negati ve Not Available [facility] ([facility]) [address] [facility], [place], [address], 11/07/2024 07:06:00 11/05/19 25 11/07/2024 HPV GENOT YPES 16/18 ,45 HPV genotype 18,45 Negati ve negati ve Not Available [facility] ([facility]) [address] [facility], [place], [address], 11/07/2024 07:06:00 09/05/19 25 09/04/2024 US, pelvi s, trans abdom inal + trans vagin al No observ ation record ed. [address], [address], 09/17/2024 10:06:39 Result Notes None recorded. Problems Name Problem SNOMED Code Status Onset Date Resolution Date Notes Provider Name and Address Organization Details Recorded Time Smoker 56707491 Active 2019 TIFFANIE RAMOS Attn: Flo perez,[address] [place], [address], [place] [facility] 0 09:48:22 Bleeding gums 52665341 Active 2019 TIFFANIE RAMOS Attn: Flo g,[address] [place], [address], [place] [facility] 0 09:48:24 Anxiety 60974232 Active 2019 TIFFANIE RAMOS Attn: Flo g,[address] [place], [address], [place] [facility] 0 09:48:28 Abnormal cervical Papanicolao u smear 152178524 Active 2023 Mckenna Glover MD Attn: Flo g,[address] [place], [address], [place] [facility] 4 14:46:34 Low grade squamous intraepithe 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 Procedures Surgical History Date Name Laterality Status Provider Name and Address Organization Details Recorded Time 5 Date of Last Pap Smear completed Myra Goodson MA [facility] 11/04/2024 12:26:11 4 Colposcopy completed Mckenna Glover MD Attn: Accounting,[address] [facility], [place], [address], [facility] 10/26/2023 14:45:35 Imaging Results None recorded. Procedure Notes None recorded. Medical Equipment None Reported. Allergies No known drug allergies Medications Name Sig Start Date Stop Date Status Note LastModified by Organization Details LastModified Time amoxicillin 500 mg capsule TAKE 4 CAPSULES BY MOUTH ONE HOUR PRIOR TO THE APPOINTME NT AND 1 CAPSULE EVERY 8 HOURS UNTIL ALL TAKEN active Not Available Not Available No t Available triazolam 0.25 mg tablet TAKE 2 TABLETS BY MOUTH 60 MINUTES BEFORE PROCEDURE active Not Available Not Available No t Available ibuprofen 800 mg tablet TAKE 1 TABLET BY MOUTH EVERY 8 HOURS WITH MEALS active Not Available Not Available No t Available fluconazole 150 mg tablet TAKE 1 TABLET BY MOUTH EVERY DAY FOR 1 DAY 10/25 completed Not Available Not Available Not Available naltrexone 50 mg tablet Take 1 tablet every day by oral route. active Not Available Not Available No t Available gabapentin 400 mg capsule TAKE 1 CAPSULE BY MOUTH FOUR TIMES DAILY active Not Available Not Available No t Available metronidazo le 500 mg tablet TAKE 1 TABLET BY MOUTH TWICE DAILY FOR 7 DAYS active Not Available Not Available No t Available ciprofloxac in 500 mg tablet TAKE 1 TABLET BY MOUTH EVERY 12 HOURS 10/05 completed Not Available Not Available Not Available acetaminoph en 500 mg tablet TAKE 2 TABLETS BY MOUTH THREE TIMES DAILY NEEDED FOR PAIN FOR 7 DAYS 10/05 completed Not Available Not Available Not Available propranolol 10 mg tablet TAKE 1 TABLET BY MOUTH THREE TIMES DAILY active Not Available Not Available No t Available gabapentin 300 mg capsule TAKE 1 CAPSULE BY MOUTH THREE TIMES DAILY active Not Available Not Available No t Available folic acid 1 mg tablet TAKE 1 TABLET BY MOUTH DAILY FOR 30 DAYS 11/04 completed Not Available Not Available Not Available doxycycline hyclate 100 mg tablet Take 1 tablet twice a day by oral route for 7 days. 11/27 completed Not Available Not Available Not Available boric acid 600 mg vaginal suppository Insert 1 supposito ry every day by vaginal route at bedtime for 14 days. 12/11 completed Not Available Not Available Not Available Vitals Date Recorded Body height Body mass index (BMI) Body weight Body temperature Oxygen saturation Oxygen saturation in Arterial blood by Pulse oximetry Heart rate Systolic blood pressure Diastolic blood pressure Provider Name and Address Organization Details Last Updated DateTime 5 170.18 cm 27.9 kg/m2 58828.5 2 g 98 [degF] 97 % 97 % 109 /min 122 mm[Hg] 72 mm[Hg] Lizeth Li MA [place] [facility] 5 15:28:34 Date Recorded Body weight Body mass index (BMI) Body height Oxygen saturation Oxygen saturation in Arterial blood by Pulse oximetry Heart rate Systolic blood pressure Diastolic blood pressure Provider Name and Address Organization Details Last Updated DateTime 4 94432.6 1 g 30.2 kg/m2 170.18 cm 96 % 96 % 104 /min 124 mm[Hg] 78 mm[Hg] Lizeth Li [place] [facility] 4 08:42:41 Date Recorded Body height Body mass index (BMI) Body weight Systolic blood pressure Diastolic blood pressure Provider Name and Address Organization Details Last Updated DateTime 10/26/2023 170.18 cm 29.6 kg/m2 80488.96 g 114 mm[Hg] 86 mm[Hg] Selin Kurtz MA [facility] 4 14:01:36 Date Recorded Body height Body mass index (BMI) Body weight Systolic blood pressure Diastolic blood pressure Systolic blood pressure Diastolic blood pressure Provider Name and Address Organization Details Last Updated DateTime 5 170.18 cm 28.8 kg/m2 52289 g 130 mm[Hg] 100 mm[Hg] 136 mm[Hg] 102 mm[Hg] Myra Goodson MA [facility] 5 12:30:01 Social History Question Answer Notes LastModified by Organizat ion Details LastModified Time Tobacco Smoking Status Current Every Day Smoker Lizeth Li MA null, [facility] 10/06/2023 08:39:08 Do You Have An Advance Directive? No Information not available 04/13/2020 Are You Blind Or Do You Have Difficulty Seeing? No Information not available 10/06/2023 What Is Your Level Of Caffeine Consumption? Occasional Information not available 04/13/2020 How Much Tobacco Do You Chew? None Information not available 04/13/2020 Have You Been To An Area Known To Be High Risk For COVID-19? No Information not available 04/13/2020 Are You Deaf Or Do You Have Serious Difficulty Hearing? No Information not available 10/06/2023 What Type Of Diet Are You Following? REGULAR Information not available 04/13/2020 Which Illicit Or Recreational Drugs Have You Used? None Information not available 04/13/2020 Education 2 Year College Certificate Information not available 04/13/2020 Hard Of Hearing Or Deaf In One Or Both Ears? No Information not available 04/13/2020 Legally Blind In One Or Both Eyes? No Information not available 04/13/2020 Marital Status Single Informatio n not available 04/13/2020 What Was The Date Of Your Most Recent Tobacco Screening? 11/04/2024 [email or web address] Information not available 11/04/2024 How Many Children Do You Have? -1 Information not available 10/06/2023 Performs Monthly Self-breast Exam? No Information not available 04/13/2020 Do You Use Protection During Sex? No Information not available 10/06/2023 What Is Your Relationship Status? Single Information not available 10/06/2023 Do You Use Your Seat Belt Or Car Seat Routinely? Yes Information not available 10/06/2023 Are You Sexually Active? Yes Information not available 10/06/2023 Do You Have Smoke And Carbon Monoxide Detectors In Your Home? Yes Information not available 10/06/2023 At What Age Did You Start Smoking Tobacco? 16 Information not available 04/13/2020 Are You Passively Exposed To Smoke? Yes Information not available 10/06/2023 How Much Tobacco Do You Smoke? 0.5 PPD Approx 8 Cigs Per Day Information not available 04/13/2020 General Stress Level High Information not available 04/13/2020 Has Tobacco Cessation Counseling Been Provided? Yes Information not available 10/26/2023 On What Date Was Tobacco Cessation Counseling Provided? 10/26/2023 Information not available 10/26/2023 How Many Years Have You Smoked Tobacco? 14 Information not available 04/13/2020 Sex: Female Functional Status Question Answer Note LastModified by Organizat ion Details LastModified Time Do you use any illicit or recreational drugs? Yes Information not available 10/06/2023 Do you or have you ever used any other forms of tobacco or nicotine? No Information not available 10/26/2023 What is your level of alcohol consumption? Occasional Information not available 04/13/2020 Do you or have you ever used smokeless tobacco? Never used smokeless tobacco Information not available 04/13/2020 Are you currently employed? Yes Information not available 10/06/2023 Are you able to care for yourself? Yes Information not available 10/06/2023 What is your occupation? eh Information not available 10/06/2023 Do you or have you ever used e-cigarettes or vape? Never used electronic cigarettes Information not available 04/13/2020 What is your exercise level? Occasional Information not available 04/13/2020 Mental Status Question Answer Note LastModified by Organization D etails LastModified Time Do you feel stressed (tense, restless, nervous, or anxious, or unable to sleep at night)? [id number] Information not available 10/06/2023 Family History Relationship Description Onset Age of this Age Resolved Age Notes LastModified by Organization Details LastModified Time Father No current problems or disability [email or web address] Not available 03/26 11:37:20 Mother No current problems or disability [email or web address] Not available 03/26 11:37:20 Medical History Condition Response Coronary Artery Disease N Other N High Blood Pressure N Atrial Fibrillation N Thyroid Problems N Kidney or Bladder Problems N GI Problems N Depression N COPD N Blood Clots N Skin Problems N Anemia N Heart Attack (MS) N Diabetes N Anxiety Disorder N Muscle, Joint, or Bone Problems N Seizures/Epilepsy N Acid Reflux (GERD) N Cancer N Stroke N Asthma N Allergies N High Cholesterol N Hepatitis N Liver Disease N Headaches N Osteoporosis N Heart Failure N Gynecological History Statement/Question Response Flow Moderate Date of Last Mammogram Date of LMP 10/16/2024 On BCP's at Conception? N Duration of Flow (days) 4 Current Control Method None Age at Menarche 11 Age at First Child 24 If Post Menopausal, Age at Menopause Menses Monthly Y Date of Last Pap Smear 11/04/2024 LMP Definite Obstetrics History GPAL:G 1 P 1 0 0 1 Type Value Multiple Births 0 Full Term 1 Induced 0 Spontaneous 0 Premature 0 Living 1 Ectopics 0 Total 1 Immunizations Vaccine Type Date Status Note Provider Miguel griffith and Address Organization Details Recorded Time Hib, unspecified formulation 3 completed Lizeth Li [place], [place] [facility] 10/06/2023 08:36:52 Hib, unspecified formulation 3 completed Liz[place] [facility] 10/06/2023 08:36:52 MMR 4 completed Liz[place] [facility] 10/06/2023 08:36:52 MMR 6 completed Lizeth Li, [place] [facility] 10/06/2023 08:36:52 DTP 3 completed Lizeth Li, [place] [facility] 10/06/2023 08:36:52 DTP 3 completed Lizeth Li, [place] [facility] 10/06/2023 08:36:52 OPV 3 completed Lizeth Li, [place] [facility] 10/06/2023 08:36:52 OPV 3 completed Lizeth Li, [place] [facility] 10/06/2023 08:36:52 OPV 4 completed Lizeth Li, [place] [facility] 10/06/2023 08:36:52 OPV 6 completed Lizeth Li, [place] [facility] 10/06/2023 08:36:52 DTP-Hib 4 completed Lizeth Li, [place] [facility] 10/06/2023 08:36:52 DTP-Hib 5 completed Lizeth Li, [place] [facility] 10/06/2023 08:36:52 Td (adult), 2 Lf tetanus toxoid, preservative free, adsorbed 5 completed Lizeth Li, [place] [facility] 10/06/2023 08:36:52 Hep B, adolescent or pediatric 6 completed Lizeth Li, [place] [facility] 10/06/2023 08:36:52 Hep B, adolescent or pediatric 6 completed Lizeth Li, [place] [facility] 10/06/2023 08:36:52 Hep B, adolescent or pediatric 6 completed Lizeth Li, [place] [facility] 10/06/2023 08:36:52 meningococcal C conjugate 6 completed Lizeth Li, [place] [facility] 10/06/2023 08:36:52 DTaP 6 completed Lizeth Li, [place], [place] - [facility] 10/06/2023 08:36:52 Past Encounters Encounter ID Performer Location Encounter Start Date Encounter Closed Date Diagnosis/Indication Diagnosis SNOMED-CT Code Diagnosis ICD10 Code Diagnosis Note [id number] TIFFANIE RAMOS [facility] [address] [place] [address] 04/13/2020 11:33:28 04/14/2020 14:59:05 Anxiety 02927527 F41.9 patient states she is very anxious most of the time, irritable, not sleeping well, fatigued. denies SI/HI. Does not want therapy or treatment at this time. Has not been on medication for this. Adult [facility] examination 232498964 Z00.00 30 YO F presents to establish and have blood work done. ROS pertinent for poor dentition, bleeding gums, smoking, and anxiety. - given number for dental- discussed oral hygiene- lab work- stop smoking Bleeding gums 42486927 K 06.8 Smoker 54839228 F17.200 Patient not ready to quit. Discussed her options to quit and she will f/u when 90% sure she is ready. [id number] Ishmael Casanova MD [facility] (Adult Med) [address] [place] [address] 10/06/2023 08:22:03 10/11/2023 14:38:15 Depression screening 491984021 Z13.31 PHQ9- Negative (1 out of 27) [facility] screening 051174126 Z13.39 GAD7- Negative (1 out of 21) Body mass index 30+ - obesity 444304625 Z68.30 BMI 30.2 Gynecologi c examination 65095397 Z01.419 Sample taken for PAP- will call patient with resultsCBE done today- normal on PEDiscusse d self breast exam- handout given to patient Vaginal discharge 260564 006 N89.8 Nuswab sample taken- will call patient with resultsEmp irically treating with Fluconazol e 150mg tablet today Cyst of ovary 01207045 N 83.209 Patient was seen at [facility] and told she had multiple cysts and needed surgerywil l get records from [facility] to [facility]. [id number] [facility] [address] [place] [address] 10/26/2023 13:49:57 11/29/2023 16:22:38 Low grade squamous intraepithelial lesion on cervical Papanicolaou smear 3365196535 9105 R87.612 Human eloy llomavirus deoxyribonucleic acid detected, high risk on cervical specimen 851552025 R87.810 Abnormal c ervical Papanicolaou smear 896570217 R87.619 Colposcopy today. Procedure was uncomplica rad and patient tolerated well. Amenorrhea 91609405 N91. 2 [id number] MD Efraín López (Adult Med) [address] [place] [phone] 08/19/2024 15:12:32 08/20/2024 14:17:37 Cyst of ovary 23125019 N83.209 Pelvic pain on palpation R>LPatient was seen at [facility] and told she had multiple cysts and needed surgerywil l get records from [facility] to [facility].- new referral to [facility] Overweight 673190096 E66 .3 BMI 27.9 Depression screening 171 710418 Z13.31 PHQ9- Mild (9 out of 27) [facility] screening 150473373 Z13.39 GAD7- Mild (8 out of 21) [id number] [facility] [address] [place] [address] 11/04/2024 12:11:34 11/07/2024 11:28:09 Gynecologic examination 37009713 Z01.419 Sample taken for PAP- will call patient with resultsDis cussed self breast exam- handout given to patient Low grade squamous intraepithelial lesion on cervical Papanicolaou smear 8172127224 9105 R87.612 Negative colposcopy - repeat pap today 11/04/24 Cyst of right ovary 1223 348697 3601301 N83.201 Pelvic pain on palpation R>LPatient was seen at [facility] and told she had multiple cysts and needed surgerywil l get records from [facility] to [facility].- new referral to day Overweight 825775854 E66 .3 BMI 27.9 Depression screening 171 677684 Z13.31 PHQ9- Moderate (12 out of 27) [facility] screening 988155039 Z13.30 GAD7- Moderate (11 out of 21) Increased blood pressure 68438910 R03.0 BP today 130/100 and 136/102Pt to f/u with PCP for BP check Health Concerns Section Related Observation LastModified by Organization Detai ls LastModified Time None Recorded Concern Status LastModified by Organization Details LastModified Time None Recorded Advance Directives Directive N: Payers Insurance Date Sequence Insurance Name Policy Number Policy Dawkins Covered Member ID Dawkins Member ID Guarantor Name 11/07/2024 1 [facility] (MEDICAID REPLACEMENT - HMO) [id number] Dorcas Wilder [id number] Dorcas Wilder Notes Date Note Type Note Provider Name and Address Organization Details Recorded Time 04/13/2020 text/html Dorcas is 30 YO F presenting for liver enzymesPatient drinks heavily on weekends and states that many hours later her blood alcohol levels stay very elevated. She states she drinks about one pint on the weekends. denies cp, GORDILLO, sob, LE edema, jaundice, rash TIFFANIE RAMOS Attn: [address] [facility], [place], [address], [facility] 04/14/2020 09:49:58 10/06/2023 text/html 33-year-old fema le here to establish care. Patient is needing PAP, does not remember when her last pap was but states she has never had an abnormal one before. She states went to [facility] ER for lower abdominal pain. Was told she had cysts on her ovaries, R>L, and needed surgery. Denies N/V/D, SOB, CP, GORDILLO at this time.Pt is sexually active with 1 male partner. Ishmael Casanova MD Attn: [address]ing[address] [facility], [place], [address], [facility] 10/06/2023 14:43:39 10/26/2023 text/html Dorcas is a 33-year-old female who presents to the clinic for colposcopy procedure. 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 Mckenna Glover MD Attn: Accounting[address] [facility], [place], [address], [facility] 10/26/2023 23:40:47 08/19/2024 text/html 34 y/o F here c.o pelvic pain. Pt is still having heavy, painful menstrual cycles. Pt states that it is painful to put in tampons. Pt states she was unable to make appt with [facility] surgeon at [place] d/t insurance and is needing referral elsewhere. Pt states she is unable to take control d/t not being able to tolerate them. Has taken the patch, OCPs, had nexplanon and she had different reactions to the hormones in each. She does state that ovarian cysts run in her family, has an aunt that is doing chemo for ovarian cancer. She is worried that she might have the same thing. HENNA SMITH PA-C Attn: Accounting[address] [facility], [place], [address], [facility] 08/19/2024 15:55:31 11/04/2024 text/html 34 y/o F here for repeat pap, pt had LSIL and HPV+ pap in 2023 with negative colposcopy. Pt has h/o ovarian cysts. Has not been able to get surgery done d/t insurance not being accepted. PT is wanting referral somewhere else. Ishmael Casanova MD Attn: Accounting[address] [facility], [place], [address], [facility] 11/05/2024 14:15:00 OBGyn Episode Ob Episode Information Episode Created Date Number of Fetuses Patient Bloodtype Patient rh Status Prepregnancy Weight lbs Domestic Partner Domestic Partner Phone Father Name Social Media Manager Status 04/13/20 20 1 CLOSED Fetus Data First Name Last Name Admitted to NICU Weight (g) Sex Living Outcome Pediatric Complications Fetus ID Race Codes Race Delivery Type 3345.24 1 M Full Term [id number] Standard Vaginal Delivery Polo Calculation Initial Polo Date Initial Exam Date Initial Exam Provider Initial Ultrasound Date Last Menstrual Period Date Ultra Sound Weeks Gestation 0 Eighteen To Twenty Week Polo Update Ultra Sound Date Fundal Height At Umbil Quickening Date Ultra Sound Latest Weeks Gestation Final Polo Confirmed By Final Polo Confirmed Date Final Polo Date Ultra Sound Latest Days Gestation 0 0 Menstrual History Last Menstrual Date Menses Monthly On Bcp Conception Prior Menses Frequency Hcg Plus Date Menarche Onset Age Delivery Information Delivery Date Delivery Type Labor Anesthesia Weeks Gestation Incision Type Labor Labor Length Hrs Delivered By Post Complications Tubal Sterilization Discharge Date Comments 5 [facility] idural 40.2 baby boy born [facility], [place] Discharge Information Feeding Method Contraceptive Method Maternal HG B and HCT Levels
--- OUTSIDE RECORDS SUMMARY | 2024-12-23 23:35 | XMS_ITS | Data Portability ---
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 Plan of Treatment Reminders Order Date Submit Date Provider Last Modified By Organization Details Last Modified Time Details Appointments None recorded. Lab None recorded. Referral None recorded. Procedures None recorded. Surgeries None recorded. Imaging US, transvagina l 2022 023 CAROLINE Not available 19:24:52 Medication Orders None recorded. Patient TargetsNo targets recorded. Patient Instructions Encounter Date Encounter Id Patient Instructions Last Modified By Organization Details Last Modified Time 12/06/2022 [id number] constipation: care instructions [email or web address] Not available 12/06/2022 16:56:39 Reason for Referral None Reported. Results Created Date Observation Date Name Description Value Unit Range Abnormal Flag Note LastModifiedBy Organization Detail LastModifiedTime 12/10/19 23 12/06/2022 US, trans vagin al No observ ation record ed. [email or web address] [address], [place], [address], 12/12/2022 15:05:49 Result Notes None recorded. Problems Name Problem SNOMED Code Status Onset Date Resolution Date Notes Provider Name and Address Organization Details Recorded Time Syphilis test finding 875449128 Active 2020 Encounter for screening for infections with a predominan tly sexual mode of transmissi on; Progress: Stable Added By: Mary Jo Al Add to Current Problems: YES ProblemSta tus: Current Not Available [facility] 2 19:29:51 Finding of pattern of menstrual cycle 069827195 Active 2020 Excessive and frequent menstruati on with irregular cycle; Progress: Stable Added By: Sheila Kaufman Add to Current Problems: YES ProblemSta tus: Current Not Available [facility] 2 19:29:21 Problem Notes None recorded. Procedures Surgical History Date Name Laterality Status Provider Name and Address Organization Details Recorded Time 12/08/2017 Date of Last Pap Smear completed [facility] IV 12/06/2022 16:18:05 Imaging Results None recorded. Procedure Notes None recorded. Medical Equipment None Reported. Allergies No known drug allergies Medications Name Sig Start Date Stop Date Status Note LastModified by Organization Details LastModified Time Xulane 150 mcg-35 mcg/24 hr transderm al patch apply 1 patch by transder mal route once weekly 11/08 completed Xulane 150-35 mcg/24 hr Transder mal Patch, Transder mal Weekly RxNorm: [id number] Allow Substitu tion: True Refill Denied: No Edited by: Megha( Sheila Kaufman) on 10/03/19 21 Stopped by: Megha( Sheila Kaufman) on Not Available Not Available Not Available Vitals Date Recorded Body weight Body temperature Systolic And Diastolic Provider Name and Address Organization Details Last Updated DateTime 11/08/2022 10828.12 g 97.3 [degF] 118/82 mm[Hg] Arminda Foreman [facility] IV 11/08/2022 11:42:35 Date Recorded Body height Body mass index (BMI) Body weight Body temperature Systolic And Diastolic Provider Name and Address Organization Details Last Updated DateTime 12/06/2022 170.18 cm 28.5 kg/m2 56430.8 1 g 98.4 [degF] 144/82 mm[Hg] [facility] IV 16:30:43 Social History Question Answer Notes LastModified by Organizat ion Details LastModified Time Tobacco Smoking Status Former Smoker Arminda Foreman [facility] 11/08/2022 11:47:26 How Many Years Have You Consumed Alcohol? 6 [email or web address] Information not available 12/06/2022 Are You Blind Or Do You Have Difficulty Seeing? No Information not available 11/08/2022 Are You Deaf Or Do You Have Serious Difficulty Hearing? No [email or web address] Information not available 11/08/2022 What Type Of Diet Are You Following? REGULAR Information not available 11/08/2022 Which Illicit Or Recreational Drugs Have You Used? Fauziageri [email or web address] Information not available 11/08/2022 What Is The Highest Grade Or Level Of School You Have Completed Or The Highest Degree You Have Received? [id number] [email or web address] Information not available 11/08/2022 How Many Children Do You Have? 1 Information not available 11/08/2022 What Is Your Relationship Status? Single [email or web address] Information not available 11/08/2022 Are You Sexually Active? Yes [email or web address] Information not available 11/08/2022 At What Age Did You Start Smoking Tobacco? 16 Information not available 12/06/2022 How Much Tobacco Do You Smoke? 0.5 PPD [email or web address] Information not available 12/06/2022 How Many Years Have You Smoked Tobacco? 16 [email or web address] Information not available 11/08/2022 Have You Used IV Drugs? No [email or web address] Information not available 11/08/2022 Sex: Female Functional Status Question Answer Note LastModified by Organizat ion Details LastModified Time Do you use any illicit or recreational drugs? Yes Information not available 11/08/2022 Do you or have you ever used any other forms of tobacco or nicotine? No [email or web address] Information not available 11/08/2022 What is your level of alcohol consumption? Moderate Information not available 11/08/2022 Are you currently employed? Yes [email or web address] Information not available 11/08/2022 Do you or have you ever used e-cigarettes or vape? Never used electronic cigarettes [email or web address] Information not available 12/06/2022 What is your exercise level? Moderate [email or web address] Information not available 11/08/2022 Mental Status None recorded. Family History Relationship Description Onset Age of this Age Resolved Age Notes LastModified by Organization Details LastModified Time Unspecified Relation Endometriosi s (clinical) [email or web address] Not available 16:18:05 Notes:family history of larg e ovarian cyst. Medical History Condition Response Other Cancer N High Blood Pressure N Colon Cancer N Cytomegalovirus N Hyperthyroidism N Breast Cancer N Herpes (HSV) N MRSA N Blood Transfusion N Lung Cancer N Hypothyroidism N Depression N Incontinence N Panic Attacks N Neurological Disorder N Deep Vein Thrombosis N Anxiety Disorder Y Autoimmune disease N Arthritis N Tuberculosis/Positive PPD N Shingles N Polycystic Ovarian Syndrome N Cervical Cancer N Hematuria N Chlamydia N Varicosities N Stroke N Crohn's Disease N Seasonal allergies N Alzheimer's/Dementia N COPD/Emphysema N HPV/Genital Warts N Endometriosis N IBS (Irritable Bowel Syndrome) N History of Abnormal Pap N High Cholesterol N Liver Disease N Fibromyalgia N Kidney Infection N Ulcer N Kidney Disease N HIV N Gallbladder disease N Von Willebrand disease N Sickle Cell Disease/Trait N ADD/ADHD N Eating Disorder N Diabetes Mellitus (non-insulin dependent ) N Anemia N Ovarian Problems N Multiple Sclerosis N Gonorrhea N Frequent Urinary Tract infections N Osteopenia N Headaches/migraines Y GERD (reflux) N Ovarian Cancer N Diabetes (insulin dependent) N Seizures/Epilepsy N Fibroids N Asthma N Heart Attack N Endometrial Cancer N Lupus N Rubella N Blood Clotting Disorder N Bipolar Disorder N Diabetes Mellitus (during ) N Ulcerative Colitis N Hepatitis N Heart Disease N Pulmonary Embolism N RPR N Chicken Pox N Osteoporosis N Gynecological History Statement/Question Response Date of Last Colonoscopy Flow Heavy Frequency of Cycle (Q days) 33 Date of LMP 11/08/2022 Most Recent Bone Density Date of Last Pap Smear 12/08/2017 Duration of Flow (days) 4-6 Most Recent Mammogram Current Control Method None Age at Menarche 11 Obstetrics History GPAL:G 1 P 1 0 0 1 Type Value Full Term 1 Living 1 Total 1 Past Encounters Encounter ID Performer Location Encounter Start Date Encounter Closed Date Diagnosis/Indication Diagnosis SNOMED-CT Code Diagnosis ICD10 Code Diagnosis Note [id number] [facility] [address] [place] [address] 11/08/2022 11:27:08 11/08/2022 12:40:50 Pain in pelvis 26793549 R10.2 Pain is worse when on period. No pain during intercours e. Spotting when she ovulates. Education given on cysts. Periods come every month. Reports heavy bleeding.P t reports she is still having pelvic pain. RTC for TVUS. PA sent. Cyst of right ovary 1223 956534 9210257 N83.201 Contracept ion care education 719591941 Z30.09 Contracept karen counseling : Discussed options including OCPs, NuvaRing, Nexplanon, hormonal and copper IUDs. Discussed risks, efficacy, non contracept karen benefits, and side effects of each option, including risk of VTE with hormonal contracept ion and uterine perforatio n, expulsion, infection with IUD. Declines contracept ion at this time. Reports broke out with the patch. The pill made her nauseous. Education given. [id number] [facility] [address] [place] [address] 12/06/2022 15:51:07 12/06/2022 17:59:07 Pain in pelvis 54637168 R10.2 Uterus WNL. Left Ovary WNL. Rt ovary simple cyst and complex cyst. Measuring 3.4 x 2.3 x 3.1 and 2.8 x 2.1 x [address].Discus sed with Dr. Goff- pt will follow up with TVUS after 2-3 menstrual cycles. Pt declines Contracept ion to help with cysts. Constipation 38584815 K5 9.00 Pt reports severe constipati on over 3 weeks. Education given. Health Concerns Section Related Observation LastModified by Organization Detai ls LastModified Time None Recorded Concern Status LastModified by Organization Details LastModified Time None Recorded Advance Directives Directive None Recorded Payers Insurance Date Sequence Insurance Name Policy Number Policy Dawkins Covered Member ID Dawkins Member ID Guarantor Name 12/13/2022 1 [facility] (MEDICAID REPLACEMENT - HMO) [id number] Dorcas Wilder [id number] Dorcas Wilder Notes Date Note Type Note Provider Name and Address Organization Details Recorded Time 11/08/2022 text/html Pelvic PainReported bypatient.Location :right; lower abdominal; lower back Duration:intermitt ent Quality:sharp Severity:moderate Context:occurs with menstrual cycle Alleviating Factors:Tylenol Associated Symptoms:no abdominal pain; no back pain; no chills; no constipation; no diarrhea; no vaginal discharge; no pain with urination; normal emptying of bladder; no feelings of urgency; no blood in the urine; normal libido; no fever; no nausea; no vomiting; no nocturia; no sexual abuse; no ectopic pregnancies; no endometriosis; no urinary frequency; no vaginal itching or irritation; no dyspareunia Dorcas went to the ER in september of 2021 for stomach pain. She had an endoscopy in october of 2021 and found a cyst on right ovary. Pain is worse when on period. No pain during intercourse. Spotting when she ovulates. GRICEL [facility] [address] [place], [address], [facility] [employer] IV 11/08/2022 12:08:14 12/06/2022 text/html Pelvic PainReported bypatient.Location :bilateral Onset/Timing:gradu al Duration:constant Quality:sharp; stabbing Associated Symptoms:no abdominal pain; no back pain; no chills; no constipation; no diarrhea; no vaginal discharge; no pain with urination; normal emptying of bladder; no feelings of urgency; no blood in the urine; normal libido; no fever; no nausea; no vomiting; no nocturia; no sexual abuse; no ectopic pregnancies; no endometriosis; no urinary frequency; no vaginal itching or irritation; no dyspareunia pt states pelvic pain is sharp and stabbing feeling. she says it feels like a cramp but worse. KACY [facility] [address] [place], [address], [facility] [employer] IV 12/06/2022 16:56:56 OBGyn Episode Ob Episode Information Episode Created Date Number of Fetuses Patient Bloodtype Patient rh Status Prepregnancy Weight lbs Domestic Partner Domestic Partner Phone Father Name Estimating Engineer Status 11/09/19 23 1 CLOSED Fetus Data First Name Last Name Admitted to NICU Weight (g) Sex Living Outcome Pediatric Complications Fetus ID Race Codes Race Delivery Type 3345.24 1 M Full Term [id number] Polo Calculation Initial Polo Date Initial Exam [...] Complications Tubal Sterilization Discharge Date Comments 5 Regional-Ep idural 40 false delivere d in [place] Discharge Information Feeding Method Contraceptive Method Maternal HG B and HCT Levels
--- OUTSIDE RECORDS SUMMARY | 2024-12-23 23:35 | XMS_ITS | Clinical Summary ---
Author Organization [facility] Address [facility]ly [facility], [facility] [place] [address] Care Team Providers Care Federal Aid Coordinator Name Role Phone None, Provider MD Primary Care Provider Unavaila ble Allergies No known active allergies Medications melatonin 5 MG tablet Take 2 tablets (10 mg total) by mouth nightly as needed (insomnia). Active Active Problems Problem Noted Date Diagnosed Date Hypokalemia 08/23/2024 Family History Medical History Relation Comments None Father None Mother Relation Status Comments Father Alive Mother Alive Social History Tobacco Use Types Packs/Day Years Used Date Smoking Tobacco: Every Day Cigarettes Smokeless Tobacco: Never Tobacco Cessation:Ready to Q uit: Not Asked; Counseling Given: Not Answered Alcohol Use Standard Drinks/Week Comments Yes 0 (1 standard drink = 0.6 oz pure alcohol) daily half pint drinker x years [facility] Utilities Answer Date Recorded In the past 12 months has [facility] [employer], gas, oil, or water [place] threatened to shut off services in your home? No 08/24/2024 Humiliation, Afraid, Rape, and Kick questionnair e Answer Date Recorded Within the last year, have y ou been afraid of your partner or ex-partner? No 08/24/2024 Within the last year, have y ou been humiliated or emotionally abused in other ways by your partner or ex-partner? No Within the last year, have y ou been kicked, hit, slapped, or otherwise physically hurt by your partner or ex-partner? No 08/24/2024 Within the last year, have y ou been raped or forced to have any kind of sexual activity by your partner or ex-partner? No 08/24/2024 Overall Financial Resource Strain (CARDIA) Answe r Date Recorded How hard is it for you to pa y for the very basics like food, housing, medical care, and heating? Not hard at all 08/24/2024 Hunger Vital Sign Answer Date Recorded Within the past 12 months, y ou worried that your food would run out before you got the money to buy more. Never true 08/25/19 25 Within the past 12 months, t he food you bought just didn't last and you didn't have money to get more. Never true 08/24/2024 PRAPARE - Transportation Answer Date Re corded In the past 12 months, has l ack of transportation kept you from medical appointments or from getting medications? No 06/2024 In the past 12 months, has l ack of transportation kept you from meetings, work, or from getting things needed for daily living? No 08/24/2024 Housing Stability Vital Sign Answer Tamir e Recorded In the last 12 months, was t here a time when you were not able to pay the mortgage or rent on time? No 08/24/2024 In the past 12 months, how m any times have you moved where you were living? 1 08/24/2024 At any time in the past [address] [facility], were you homeless or living in a residential (including now)? No 08/24/2024 Comments No Sex and Gender Information Value Date Recorded Sex Assigned at Female 08/23/2024 4:39 PM PRINCIPAL SECURITY ARCHITECT Legal Sex Female 11:16 PM PRINCIPAL SECURITY ARCHITECT Gender Identity Not on file Sexual Orientation Not on file Last Filed Vital Signs Vital Sign Reading Time Taken Comments Blood Pressure 136/93 08/26/2024 8:11 AM PRINCIPAL SECURITY ARCHITECT Pulse 74 08/26/2024 8:11 AM PRINCIPAL SECURITY ARCHITECT Temperature 36.7 C (98.1 F) 08/26/2024 8:11 AM PRINCIPAL SECURITY ARCHITECT Respiratory Rate 17 08/26/2024 8:11 AM PRINCIPAL SECURITY ARCHITECT Oxygen Saturation 99% 08/26/2024 8:11 AM PRINCIPAL SECURITY ARCHITECT Inhaled Oxygen Concentration - - Weight 78.5 kg (173 lb 1 oz) 08/26/2024 4:02 AM PRINCIPAL SECURITY ARCHITECT Height 170.2 cm (5' 7) 08/23/2024 4:49 PM PRINCIPAL SECURITY ARCHITECT Body Mass Index 27.11 08/23/2024 4:49 PM PRINCIPAL SECURITY ARCHITECT Plan of Treatment Health Maintenance Due Date Last Done Comments Cervical Cancer Screening Pap Smear (Age 30 to 64) Every 3 Years 1992 Annual Physical 01/30/1995 DTaP, Tdap and Td Vaccines (3 - Tdap) 02/22/2005 02/21/2005, 03/15/1996, 03/10/1995, Additional history exists Pneumococcal Vaccine: Pediatrics (0 to 5 Years) and At-Risk Patients (6 to 49 Years) (1 of 2 - PCV) 01/30/2011 Cervical Cancer Screening Pap with HPV Testing (Age 30 to 64) Every 5 Years 01/30/2022 Cervical Cancer Screening with HPV 01/30/2022 COVID-19 Vaccine ( season) 2024 Hepatitis B Vaccines Completed 02/15/2006, 04/12/1996, 03/15/1996 Meningococcal Vaccine Aged Out 02/15/2006 No magda narendra eligible based on patient's age to complete this topic Hepatitis C Completed 08/23/2024 HPV Vaccines Aged Out No longer eligi ble based on patient's age to complete this topic Meningococcal B Vaccine Aged Out No l onger eligible based on patient's age to complete this topic RSV Immunizations Under 20 Months Aged Out No longer eligible based on patient's age to complete this topic Procedures Procedure Name Priority Date/Time Associated Diagnosis Comments HEPATITIS PANEL,ACUTE Routine 08/23/2024 11:07 PM PRINCIPAL SECURITY ARCHITECT from Last 3 Months or Most Recently Relevant to Health Maintenance Results * HEPATITIS PANEL,ACUTE (08/23/2024 11:07 PM PRINCIPAL SECURITY ARCHITECT) HEPATITIS B SURFACE AG NON-REACTI VE NON-REACTI VE 08/24/2024 4:28 AM PRINCIPAL SECURITY ARCHITECT [facility] HEP B CORE IGM NON-REACTI VE NON-REACTI VE 08/24/2024 4:28 AM PRINCIPAL SECURITY ARCHITECT [facility] HAV IGM NON-REACTI VE NON-REACTI VE 08/24/2024 4:28 AM PRINCIPAL SECURITY ARCHITECT [facility] HEPATITIS C AB NON-REACTI VE NON-REACTI VE 08/24/2024 4:28 AM PRINCIPAL SECURITY ARCHITECT [facility] 08/23/2024 11:0 7 PM PRINCIPAL SECURITY ARCHITECT us Tia Carlin 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
[2024-12-23 23:40] VITALS: BP 150/111; PULSE 135; RESP 18; TEMP 36.5; O2SAT 100
--- NOTE | 2024-12-23 23:41 | ECG_ITS ---
Test Date: 2024-12-23 23:41:20 Measurements Intervals [place] Rate: 131 P: 66 OR: 145 QRS: 68 QRSD: 77 T: 57 QT: 333 QTc: 493 Interpretive Statements SINUS TACHYCARDIA NONSPECIFIC ST & T-WAVE ABNORMALITY ABNORMAL RHYTHM ECG No previous ECG available for comparison Electronically Signed On 12-24-2024 17:56:08 CDT by Lilian Honeycutt
[2024-12-24] VITALS (24 sets, daily range): BP systolic 127–151; BP diastolic 94–109; PULSE 74–153; RESP 14–26; TEMP 36–36.8; O2SAT 96–100; BMI 31.1
[2024-12-24] MEDS: ONDANSETRON HCL ODT 4 MG TABLET PO (00:03)
[2024-12-24 00:08] LABS: Hematocrit 48.7 % (37.0-47.0); Hemoglobin 16.4 g/dL (12.0-15.0); Immature Granulocyte Percent A 0.3 % (0-0.5); Lymphocytes Absolute Auto 0.74 K/mm3 (0.9-3.2); Mean Corpuscular HGB Conc 33.7 g/dl (32-36); Mean Corpuscular Hemoglobin 34.1 pg (26-34); Mean Corpuscular Volume 101.2 fl (80-100); Nucleated Red Blood Cells Absolute Auto 0.000 K/mm3 (0.0-0.012); Nucleated Red Blood Cells Perc 0.0 % (0.0-0.2); Platelet Count Result 215 k/mm3 (150-375); Red Blood Count 4.81 M/mm3 (4.2-5.4); White Blood Count 7.5 K/mm3 (4.5-10.0)
[2024-12-24 01:31] LABS: BEDSIDEPREGUCG Positive (Negative)
[2024-12-24] MEDS: SODIUM CHLORIDE 0.9% IV 1,000 ML 999 ML IV CONT ×3 (01:32→05:04)
[2024-12-24 01:35] LABS: Add Urine Microscopic? YES; Appearance Urine Cloudy (Clear); Glucose Urine UA Negative (Negative); Leukocyte Esterase Ur Negative LEU/UL (Negative); Nitrate Urine Negative (Negative); Specific Grav Ur 1.028 (1.001-1.035)
[2024-12-24 01:56] LABS: Alanine Aminotransferase 135 U/L (6-35); Albumin Level 5.4 g/dL (3.5-5.1); Alkaline Phosphatase 98 U/L (38-126); Anion Gap 28 mmol/L (4-12); Aspartate Amino Transferase 296 U/L (14-36); Bilirubin,Total 1.4 mg/dL (0.2-1.3); Blood Urea Nitrogen 8 mg/dL (7-17); Calcium 9.8 mg/dL (8.4-10.2); Carbon Dioxide 13 mmol/L (22-30); Chloride 99 mmol/L (98-107); Estimated CRCL calculation 110 ml/min; Estimated Glomerular Filt Rate > 60; Glucose 106 mg/dL (65-110); Lipase 661 U/L (23-300); Magnesium 1.4 mg/dL (1.6-2.3); Potassium 4.4 mmol/L (3.4-5.0); Sodium 140 mmol/L (137-145); Total Protein 9.6 g/dL (6.3-8.2)
[2024-12-24 02:13] LABS: Beta HCG Quantitative 41.42 mIU/ML
--- NOTE | 2024-12-24 02:46 | ED.NAVMDI ---
HPI - Nausea/Vomiting/Diarrhea General Chief complaint: Nausea/Vomiting/Diarrhea Stated complaint: food poisoning Time Seen by Provider: 12/24/24 02:26 Source: patient and family (Mother) Mode of arrival: ambulatory Limitations: no limitations History of Present Illness HPI Narrative: female Patient presents with concern for food poisoning. She was having subjective fevers and felt nauseated and has been vomiting. She reports pain at her upper abdomen , right side, and back. She states her nausea initially improved after receiving medication in the emergency department. She does feel weak. Her last menstrual period was 1/2 weeks ago. She is sexually active. Did have recent surgery in which a top denture was placed 1 week ago for a dental infection. She is currently on amoxicillin although did not take today's dose due to nausea and vomiting. No previous abdominal surgeries. She reports being short of breath. Symptoms started last night. History of diagnosed hypertension. Denies vaginal bleeding discharge. No dysuria or urgency frequency or hematuria. Sindhu is Dr Beauchamp in [place]. Related Data Home Medications ?Medication ?Instructions ?Recorded ?Confirmed ?Last Taken ?Type gabapentin 400 mg capsule 400 mg PO QID 12/24/24 12/24/24 12/22/24 History naltrexone 50 mg tablet 50 mg PO DAILY 12/24/24 12/24/24 Unknown History propranolol 10 mg tablet 10 mg PO TID 12/24/24 12/24/24 12/22/24 History Allergies Allergy/AdvReac Type Severity Reaction Status Date / Time No Known Allergies Allergy Mild Verified 12/24/24 03:31 [facility] Past Medical History Medical History Vaginal delivery Marijuana smoker Bloody emesis Nausea and vomiting in adult Social History Social History Smoking packs per day: 0.5 Smoking cigarettes per day: 10.0 Smoking status: Light tobacco smoker Alcohol intake: current Drinks per week: 10 Alcohol use details: 1/2 pint daily Substance use: current Substance use type: marijuana Other substance usage details: twice a day Do You Feel Safe in your Home?: Yes Lack of Transportation: No Lack of Food: Never True Current Housing: I Have Housing Concerned About Future Housing: No Difficulty Paying Gas/Electric Bills: No Difficulty Paying for Meds: No Currently Unemployed: No Education: High School Diploma/GED Difficulty w/ Childcare or Family Care: No Living arrangements: with family Spiritual care concerns: No Exam Narrative: GENERAL: well-nourished, and in no acute distress. HEAD: Normocephalic, atraumatic. EYES: Non injected, non icteric ENT: Nares clear, no rhinorrhea or epistaxis. Gross auditory acuity intact. NECK: Supple. No meningismus. CHEST: Speaking in full sentences. No respiratory distress. HEART: Tachycardic rate and rhythm. . ABDOMEN: Soft, nondistended. No rigidity or guarding. Not peritoneal. EXTREMITIES: Normal range of motion. No lower extremity edema. SKIN: Warm, dry, no rash. NEURO: No focal deficits. Alert and oriented. Answering questions. Following commands. Normal speech without aphasia or dysarthria. PSYCH: Normal mood and affect. Course Vital Signs Vital signs: Vital Signs Temperature 97.7 F 12/23/24 23:40 Pulse Rate 135 H 12/23/24 23:40 Respiratory Rate 18 12/23/24 23:40 Blood Pressure 150/111 H 12/23/24 23:40 Pulse Oximetry 100 12/23/24 23:40 Temperature 97.0 F L 12/25/24 05:09 Pulse Rate 93 12/25/24 05:09 Respiratory Rate 16 12/25/24 05:09 Blood Pressure 137/96 H 12/25/24 05:09 Pulse Oximetry 95 12/25/24 05:09 Oxygen Delivery Room Air 12/24/24 09:36 MDM - Nausea/Vomiting/Diarrhea MDM Narrative Medical decision making narrative: Patient presents with concern food poisoning given that she has been nauseated and having right upper quadrant/epigastric pain radiating towards her back. In the emergency department she is afebrile with vital signs notable for significant tachycardia. Also hypertension. Urine test is positive. Beta-hCG is <50, thus elevated and positive but very early. This would make her . She was not aware she was so this is a new diagnosis. Sexually active, states LMP 1.5 weeks ago. Lipase elevated >2x upper limit of normal. No leukocytosis. Hemoglobin and hematocrit are elevated I suspect due to hemoconcentration. She has transaminitis. Urinalysis with RBCs in ketonuria. 2nd L IV fluids have been ordered. Mild hypomagnesemia. Oral repletion ordered. A right upper quadrant ultrasound has been ordered given her transaminitis and elevated lipase. This will have to be routine as ultrasound is not typically available overnight. For the positive test, I did order ultrasound OB however I did discuss with on-call i&c technician who confirms that at that number there is unlikely to be anything identified in for this reason, we did through shared conversation confirm that this attempt at visualization could be delayed until routine this morning, 7am rather than coming in overnight for a rule out ectopic. Patient has an elevated dimer. Given the shortness of breath, elevated heart rate, elevated dimer, lipase, pain radiating to back, and LFTs, I do recommend proceeding with CTA PE Chest/abd/pelvis study. We discussed the risks and benefits of this study both for herself as a woman of reproductive age as well as for a potentially developing early fetus. Patient understands these risks and would like to proceed. Although lipase is not 3 times the upper limit of normal, she is having abdominal pain radiating to her back and evidence of pancreatitis on imaging. She does endorse occasionally drinking near daily. Still pursuing gallstone etiology as well. Discussed patient with on-call hospitalist TIFFANIE Frausto who accepts admission. Patient will be admitted and is pending her right upper quadrant and OB US (although again, suspect the latter to be inconclusive and that patient would need to follow up outpatient for serial bhcg re-draw). Differential Diagnosis Differential diagnosis: Likely food poisoning, gastroenteritis, drug-induced nausea and vomiting, dehydration and other (/ectopic /vomiting during /hyperemesis gravidarum; cannabinoid hyperemesis; pancreatitis; pulmonary embolism; thyroid dysfunction; biliary etiology; gastritis; appendicitis) Lab Data Attestation: I reviewed the patient's lab results. 12/25/24 06:20 12/25/24 06:20 Labs: Lab Results 12/23/24 12/24/24 12/24/24 Range/Units 23:55 01:21 01:27 WBC 7.5 (4.5-10.0) K/mm3 RBC 4.81 (4.2-5.4) M/mm3 Hgb 16.4 H (12.0-15.0) g/dL Hct 48.7 H (37.0-47.0) % MCV 101.2 H (80-100) fl MCH 34.1 H (26-34) pg MCHC 33.7 (32-36) g/dl RDW 13.8 (11.5-14.5) % Plt Count 215 (150-375) k/mm3 MPV 10.0 (7.4-10.4) fl Immature Gran % (Auto) 0.3 (0-0.5) % Neut % (Auto) 84.8 H (45.5-73.1) % Lymph % (Auto) 9.9 L (18.3-44.2) % [place] % (Auto) 4.5 (2.6-8.5) % Eos % (Auto) 0.0 (0-4.4) % Baso % (Auto) 0.5 (0.2-1.2) % Lymph # (Auto) 0.74 L (0.9-3.2) K/mm3 [place] # (Auto) 0.3 (0.1-0.6) K/mm3 Eos # (Auto) 0.0 (0-0.3) K/mm3 Baso # (Auto) 0.0 (0.0-0.1) K/mm3 Abs Immat Gran (auto) 0.02 (0.00-0.031) K/mm3 Absolute Neuts (auto) 6.4 (1.3-6.7) K/mm3 Absolute Nucleated RBC 0.000 (0.0-0.012) K/mm3 Nucleated RBC % 0.0 (0.0-0.2) % D-Dimer (<0.48) ug/mL Sodium (137-145) mmol/L Potassium (3.4-5.0) mmol/L Chloride (98-107) mmol/L Carbon Dioxide (22-30) mmol/L Anion Gap (4-12) mmol/L BUN (7-17) mg/dL Creatinine (0.7-1.0) mg/dL Estim Creat Clear Calc ml/min Estimated GFR (59 - ) Glucose (65-110) mg/dL Calcium (8.4-10.2) mg/dL Magnesium (1.6-2.3) mg/dL Total Bilirubin (0.2-1.3) mg/dL AST (14-36) U/L ALT (6-35) U/L Alkaline Phosphatase (38-126) U/L Total Protein (6.3-8.2) g/dL Albumin (3.5-5.1) g/dL Lipase (23-300) U/L TSH (0.465-4.680) uIU/mL Beta HCG, Quant mIU/ML Urine Color Yellow (Yellow) Urine Appearance Cloudy H (Clear) Urine pH 6.0 (5.0-9.0) Ur Specific [place] 1.028 (1.001-1.035) Urine Protein 4+ H (Negative) mg/dL Urine Glucose (UA) Negative (Negative) mg/dL Urine Ketones 4+ H (Negative) mg/dL Ur Blood (Man) 2+ H (Negative) Urine Nitrate Negative (Negative) Urine Bilirubin Negative (Negative) Urine Urobilinogen 1.0 (<2.0) mg/dL Leukocyte Esterase Rfl Negative (Negative) [place]/UL Urine RBC 11-20 H (0-2) /hpf Urine WBC 0-5 (0-3) /hpf Ur Squamous Epith Cells Moderate (Few) /hpf Urine Bacteria None seen /hpf Urine Casts 3-5 POC Urine HCG, Qual Positive (Negative) Urine Opiates Screen Negative (Negative) Urine Methadone Screen Negative (Negative) Ur Barbiturates Screen Negative (Negative) Ur Phencyclidine Scrn Negative (Negative) Ur Amphetamine Screen Negative (Negative) U Benzodiazepines Scrn Negative (Negative) Urine Cocaine Screen Negative (Negative) U Cannabinoids Screen Positive A (Negative) 12/24/24 12/24/24 Range/Units 01:29 01:30 WBC (4.5-10.0) K/mm3 RBC (4.2-5.4) M/mm3 Hgb (12.0-15.0) g/dL Hct (37.0-47.0) % MCV (80-100) fl MCH (26-34) pg MCHC (32-36) g/dl RDW (11.5-14.5) % Plt Count (150-375) k/mm3 MPV (7.4-10.4) fl Immature Gran % (Auto) (0-0.5) % Neut % (Auto) (45.5-73.1) % Lymph % (Auto) (18.3-44.2) % [place] % (Auto) (2.6-8.5) % Eos % (Auto) (0-4.4) % Baso % (Auto) (0.2-1.2) % Lymph # (Auto) (0.9-3.2) K/mm3 [place] # (Auto) (0.1-0.6) K/mm3 Eos # (Auto) (0-0.3) K/mm3 Baso # (Auto) (0.0-0.1) K/mm3 Abs Immat Gran (auto) (0.00-0.031) K/mm3 Absolute Neuts (auto) (1.3-6.7) K/mm3 Absolute Nucleated RBC (0.0-0.012) K/mm3 Nucleated RBC % (0.0-0.2) % D-Dimer 3.86 H (<0.48) ug/mL Sodium 140 (137-145) mmol/L Potassium 4.4 (3.4-5.0) mmol/L Chloride 99 (98-107) mmol/L Carbon Dioxide 13 L (22-30) mmol/L Anion Gap 28 H (4-12) mmol/L BUN 8 (7-17) mg/dL Creatinine 0.73 (0.7-1.0) mg/dL Estim Creat Clear Calc 110 ml/min Estimated GFR > 60 (59 - ) Glucose 106 (65-110) mg/dL Calcium 9.8 (8.4-10.2) mg/dL Magnesium 1.4 L (1.6-2.3) mg/dL Total Bilirubin 1.4 H (0.2-1.3) mg/dL AST 296 H (14-36) U/L ALT 135 H (6-35) U/L Alkaline Phosphatase 98 (38-126) U/L Total Protein 9.6 H (6.3-8.2) g/dL Albumin 5.4 H (3.5-5.1) g/dL Lipase 661 H (23-300) U/L TSH 0.502 (0.465-4.680) uIU/mL Beta HCG, Quant 41.42 mIU/ML Urine Color (Yellow) Urine Appearance (Clear) Urine pH (5.0-9.0) Ur Specific [place] (1.001-1.035) Urine Protein (Negative) mg/dL Urine Glucose (UA) (Negative) mg/dL Urine Ketones (Negative) mg/dL Ur Blood (Man) (Negative) Urine Nitrate (Negative) Urine Bilirubin (Negative) Urine Urobilinogen (<2.0) mg/dL Leukocyte Esterase Rfl (Negative) [place]/UL Urine RBC (0-2) /hpf Urine WBC (0-3) /hpf Ur Squamous Epith Cells (Few) /hpf Urine Bacteria /hpf Urine Casts POC Urine HCG, Qual (Negative) Urine Opiates Screen (Negative) Urine Methadone Screen (Negative) Ur Barbiturates Screen (Negative) Ur Phencyclidine Scrn (Negative) Ur Amphetamine Screen (Negative) U Benzodiazepines Scrn (Negative) Urine Cocaine Screen (Negative) U Cannabinoids Screen (Negative) Imaging Data My impression: Impression: Mild acute pancreatitis about the pancreatic head. Diffuse hepatic steatosis. No other significant findings. Radiologist's impression: CTA Chest/Abd & Pelvis Stat Rad: Limited study due to respiratory motion without evidence of central pulmonary embolism. No incidental findings . Peripancreatic fat stranding associated with the head and neck compatible with groove pancreatitis. No peripancreatic fluid collection. Hepatic steatosis. ECG Data EKG #1: Attestation: I personally reviewed and interpreted this ECG as follows: ECG completion date: 12/23/24 ECG completion time: 23:41 Interpretation: Sinus tachycardia at a rate of 131 beats per minute. [place] interval 145. QRS 77. QT/QTC 333/410. Good R-wave progression across the precordial leads. Discharge Plan Discharge Clinical Impression: Elevated lipase, Urine test positive, Elevated hemoglobin, Transaminitis, Ketonuria, Microscopic hematuria, Hypomagnesemia, Pancreatitis, Marijuana use, Groove pancreatitis Patient Disposition: Still a Patient Condition: Stable Time of Disposition: 05:46
--- OUTSIDE RECORDS SUMMARY | 2024-12-24 02:46 | XMS_ITS | Clinical Summary ---
Author Organization [facility] Address [facility] [place] [address] Care Team Providers Care Fisheries Biologist Name Role Phone None, Provider MD Primary [...] alcohol) daily half pint drinker x years [facility] Utilities Answer Date Recorded In the past 12 months has [facility], gas, oil, or water [employer] threatened to shut off services in your [...] in the past 12 m [facility], were you homeless or living in a residential (including now)? No 08/24/2024 Comments No Sex and Gender Information Value Date Recorded Sex Assigned at Female 08/23/2024 4:39 PM DRUM OPERATOR Legal Sex Female 11:16 PM DRUM OPERATOR Gender Identity Not on file Sexual Orientation Not on file Last Filed Vital Signs Vital Sign Reading Time Taken Comments Blood Pressure 136/93 08/26/2024 8:11 AM DRUM OPERATOR Pulse 74 08/26/2024 8:11 AM DRUM OPERATOR Temperature 36.7 C (98.1 F) 08/26/2024 8:11 AM DRUM OPERATOR Respiratory Rate 17 08/26/2024 8:11 AM DRUM OPERATOR Oxygen Saturation 99% 08/26/2024 8:11 AM DRUM OPERATOR Inhaled Oxygen Concentration - - Weight 78.5 kg (173 lb 1 oz) 08/26/2024 4:02 AM DRUM OPERATOR Height 170.2 cm (5' 7) 08/23/2024 4:49 PM DRUM OPERATOR Body Mass Index 27.11 08/23/2024 4:49 PM DRUM OPERATOR Plan of Treatment Health Maintenance Due Date [...] Comments HEPATITIS PANEL,ACUTE Routine 08/23/2024 11:07 PM DRUM OPERATOR from Last 3 Months or Most Recently Relevant to Health Maintenance Results * HEPATITIS PANEL,ACUTE (08/23/2024 11:07 PM DRUM OPERATOR) HEPATITIS B SURFACE AG NON-REACTI VE NON-REACTI VE 08/24/2024 4:28 AM DRUM OPERATOR [facility] HEP B CORE IGM NON-REACTI VE NON-REACTI VE 08/24/2024 4:28 AM DRUM OPERATOR [facility] HAV IGM NON-REACTI VE NON-REACTI VE 08/24/2024 4:28 AM DRUM OPERATOR [facility] HEPATITIS C AB NON-REACTI VE NON-REACTI VE 08/24/2024 4:28 AM DRUM OPERATOR [facility] 08/23/2024 11:0 7 PM DRUM OPERATOR us Tia Carlin [facility] Final Resul t [facility] [address] [place] [address], [place] [phone] from Last 3 Months or Most Recently Relevant to Health Maintenance Insurance [facility] C/O PROVIDER SERVICES TIFFANIE MADSEN [id number] Advance Directives * Full Code (Latest Code Status on File) Date Activated Date Inactivated Comments 08/23/2024 9:10 PM 08/26/2024 2:54 PM Care Teams Fisheries Biologist Relationship Specialty Start Date End Date None, Provider, PCP - General 08/14/19
[2024-12-24] MEDS: MAGNESIUM OXIDE 400 MG TABLET PO (03:10)
[2024-12-24 04:16] LABS: Cannabinoid Screen Urine Positive (Negative)
[2024-12-24 04:23] LABS: Thyroid Stimulating Hormone 0.502 uIU/mL (0.465-4.680)
[2024-12-24] MEDS: MORPHINE SULFATE (*CRX) 2 MG/ML INJ IV PUSH ×4 (05:33→17:08)
[2024-12-24] MEDS: LACTATED RINGERS 1,000 ML 125 ML IV CONT ×3 (07:08→20:32)
--- NOTE | 2024-12-24 07:39 | PC.NURSE ---
pt taken to US at this time. maintenance fluids were stopped by this RN at this time to take pt to US
--- NOTE | 2024-12-24 08:30 | P.HP_ITS ---
H&P: HPI History of Present Illness Date/Time: 12/24/24 08:30 Chief Complaint: Nausea/Vomiting/Diarrhea Narrative: Dorcas Wilder is a 34-year-old female with a past medical history of marijuana use who presents to the hospital with nausea, vomiting, and abdominal pain for the past several days. Patient states that the abdominal pain is more located on the right lower side and reports that it radiates to her back. Denies any factors that make it better or worse. Denies any history of gallstones or pancreatitis. Denies any known sick contacts, chest pain, shortness of breath, urinary/bowel changes or complaints. Endorses recreational marijuana use and alcohol use. Reports that she had around 10 alcoholic drinks last week but no drinking this week. D-dimer elevated in the ED, 3.86, along with associated shortness of breath, tachycardia, did obtain a CTA PE chest/abdomen/pelvis. Urine test positive. Beta-hCG is <50, thus elevated and positive but very early. In ED: 97.7? F, 90.2 F, 88 HR , 143/97, 100% room air No leukocytosis, H&H 16.4/40.7 respectively, PLT within normal limits, and again 28, kidney function unremarkable, AST/ALT 296/135, lipase 661 UA: 4+ protein, 4+ ketones, 2+ blood, 11-20 RBC UDS: Positive for cannabinoids EKG: Sinus tachycardia, nonspecific ST and T-wave abnormality. QTC 493 Chest/abdomen/pelvis CTA: Mild acute pancreatitis about the pancreatic head. Diffuse hepatic steatosis. No other significant findings. OB US: No evident gestational sac for which differential would include early , failed or ectopic . Recommend follow-up with serial beta hCGs with repeat imaging as clinically indicated. US abdomen limited: Diffuse hepatic steatosis. Normal gallbladder with no cholelithiasis or intra-/extrahepatic biliary ductal dilation. Review of Systems Review of Systems: All systems reviewed & are unremarkable except as noted in HPI and below PMFSH Past Medical History Medical History Marijuana smoker Bloody emesis Nausea and vomiting in adult Patient denies significant medical history Social History Social History (Updated 06/16/24 @ 16:03 by Teresa Sexton APRN) Smoking packs per day: 0.5 Smoking cigarettes per day: 10.0 Smoking status: Light tobacco smoker Alcohol intake: current Drinks per week: 10 Alcohol use details: 1/2 pint daily Substance use: current Substance use type: marijuana Other substance usage details: twice a day Do You Feel Safe in your Home?: Yes Lack of Transportation: No Lack of Food: Never True Current Housing: I Have Housing Concerned About Future Housing: No Difficulty Paying Gas/Electric Bills: No Difficulty Paying for Meds: No Currently Unemployed: No Education: High School Diploma/GED Difficulty w/ Childcare or Family Care: No Living arrangements: with family Spiritual care concerns: No Meds Home Medications and Allergies Home Medications ?Medication ?Instructions ?Recorded ?Confirmed ?Type ibuprofen 800 mg tablet 800 mg PO TID PRN pain 7 days #21 07/25/23 12/24/24 Rx tabs ondansetron 4 mg disintegrating 4 mg PO Q8H PRN nausea and 06/16/24 12/24/24 Rx tablet vomiting #12 tabs pantoprazole 40 mg tablet,delayed 40 mg PO QAM 14 days #14 tabs 06/16/24 12/24/24 Rx release (Protonix) gabapentin 400 mg capsule 400 mg PO QID 12/24/24 12/24/24 History naltrexone 50 mg tablet 50 mg PO DAILY 12/24/24 12/24/24 History propranolol 10 mg tablet 10 mg PO TID 12/24/24 12/24/24 History Allergies Allergy/AdvReac Type Severity Reaction Status Date / Time No Known Allergies Allergy Mild Verified 12/24/24 03:31 Vital Signs Vital Signs - 24 hr 12/23/24 23:40 12/24/24 01:21 12/24/24 01:23 Temperature 97.7 F 98.2 F Pulse Rate 135 H 109 H 114 H Respiratory Rate 18 17 18 Blood Pressure 150/111 H 142/109 H Pulse Oximetry 100 100 99 Oxygen Delivery Room Air 12/24/24 01:23 12/24/24 01:30 12/24/24 01:30 Temperature Pulse Rate 115 H 117 H 127 H Respiratory Rate 18 Blood Pressure 141/107 H 142/109 H 143/107 H Pulse Oximetry 99 Oxygen Delivery 12/24/24 01:31 12/24/24 01:34 12/24/24 01:45 Temperature Pulse Rate 153 H 111 H 100 Respiratory Rate 18 19 Blood Pressure 127/99 H Pulse Oximetry 99 100 Oxygen Delivery 12/24/24 01:46 12/24/24 02:00 12/24/24 02:01 Temperature Pulse Rate 95 99 89 Respiratory Rate 14 19 14 Blood Pressure 148/105 H 133/103 H Pulse Oximetry 100 100 99 Oxygen Delivery 12/24/24 02:52 12/24/24 03:44 12/24/24 04:06 Temperature Pulse Rate 116 H 109 H 103 H Respiratory Rate 19 19 16 Blood Pressure Pulse Oximetry 100 100 Oxygen Delivery 12/24/24 04:29 12/24/24 04:30 12/24/24 04:31 Temperature Pulse Rate 98 103 H 114 H Respiratory Rate 16 26 H 22 H Blood Pressure 145/100 H Pulse Oximetry 100 96 100 Oxygen Delivery 12/24/24 05:00 12/24/24 05:18 12/24/24 05:31 Temperature Pulse Rate 90 88 98 Respiratory Rate 18 16 17 Blood Pressure 143/97 H 142/94 H Pulse Oximetry 98 97 99 Oxygen Delivery 12/24/24 07:03 Temperature Pulse Rate 88 Respiratory Rate 17 Blood Pressure 142/98 H Pulse Oximetry 99 Oxygen Delivery Exam Narrative: Gen - well appearing female in no acute respiratory distress who is nontoxic- appearing lying semi recumbent in bed HEENT - normocephalic. Atraumatic. Pupils equal round and reactive. Extraocular motions intact. Sclera clear and anicteric. Nares patent. Moist mucous membranes. No facial asymmetry. Neck - neck was supple. No dominant adenopathy, thyromegaly or masses. 2+ carotid upstrokes without bruits. Chest - lungs are clear to auscultation bilaterally. No wheezes or crackles. Breast exam was deferred. CV - heart was regular rate and rhythm. S1-S2. No murmurs gallops or rubs. Abd - abdomen was soft. Nontender. Nondistended. Positive bowel sounds. No organomegaly or masses. Ext - no clubbing, cyanosis or edema. 2+ DP pulses bilaterally. Neuro - patient is alert and oriented x4. Strength is 5/5 in both upper and lower extremities. Cranial nerves 2-12 are intact. Speech is clear. Psych - normal mood and affect. Patient is pleasant and cooperative. Skin - warm and dry. No rashes noted. H&P: Results Labs Labs: Short CBC 12/23/24 Range/Units 23:55 WBC 7.5 (4.5-10.0) K/mm3 Hgb 16.4 H (12.0-15.0) g/dL Hct 48.7 H (37.0-47.0) % Plt Count 215 (150-375) k/mm3 BMP 12/24/24 01:29 Sodium 140 Potassium 4.4 Chloride 99 Carbon Dioxide 13 L BUN 8 Creatinine 0.73 Glucose 106 Calcium 9.8 Liver Function 12/24/24 Range/Units 01:29 Total Bilirubin 1.4 H (0.2-1.3) mg/dL AST 296 H (14-36) U/L ALT 135 H (6-35) U/L Alkaline Phosphatase 98 (38-126) U/L Albumin 5.4 H (3.5-5.1) g/dL Urine 12/24/24 Range/Units 01:21 Urine Color Yellow (Yellow) Urine Appearance Cloudy H (Clear) Urine pH 6.0 (5.0-9.0) Ur Specific [place] 1.028 (1.001-1.035) Urine Protein 4+ H (Negative) mg/dL Urine Glucose (UA) Negative (Negative) mg/dL Assessment and Plan Assessment and plan (1) Pancreatitis: Code(s): K85.90 - Acute pancreatitis without necrosis or infection, unspecified Status: Acute Assessment and Plan: * Acute * IVF: LR 125mls/hour * trend lipase, currently: 661 * AST, ALT, total bilirubin. trend LFTs * pain control with Tylenol * Zofran prn for nausea * CTA abd/pelvis/chest: Mild acute pancreatitis about the pancreatic head. Diffuse hepatic steatosis. No other significant findings. * GI consulted, awaiting recs * NPO except Ice chips * Continue IVF hydration (2) Transaminitis: Code(s): R74.01 - Elevation of levels of liver transaminase levels Status: Acute Assessment and Plan: * AST/ALT 296/135 * RUQ US: Diffuse hepatic steatosis. Normal gallbladder with no cholelithiasis or intra-/extrahepatic biliary ductal dilation. * GI consult pending, awaiting recs (3) Hypomagnesemia: Code(s): E83.42 - Hypomagnesemia Status: Acute Assessment and Plan: * In ED: Mg 1.4 * Replace with IV mg sulfate * Monitor daily * Replace as needed (4) Marijuana use: Code(s): F12.90 - Cannabis use, unspecified, uncomplicated Status: Acute Assessment and Plan: * Likely etiology of n/v * Counseled of cessation/use of moderation (5) Urine test positive: Code(s): Z32.01 - Encounter for test, result positive Status: Acute Assessment and Plan: * + in ED * OB US: No evident gestational sac for which differential would include early , failed or ectopic . Recommend follow-up with serial beta hCGs with repeat imaging as clinically indicated. * Continue with serial beta hCGs
--- NOTE | 2024-12-24 11:07 | ADMGEN ---
This patient, Dorcas Wilder, was admitted to [address] [place] [address] Room 314-02 at 0830. Patient/family oriented to hospital policies and general routines including ID bracelet, bed and alarms, visiting hours, pain management, procedures, bathroom and other care routines, personal items, smoking policy, room service/diet, and visiting hours. Information on how to activate the Rapid Response Team has been discussed. Patient/Family are encouraged to report perceived risks to care and to ask questions if they do not understand what they are told or what they should do.
[2024-12-24] MEDS: ONDANSETRON INJ 4 MG/2 ML VIAL IV PUSH (13:25)
[2024-12-24] MEDS: GABAPENTIN 400 MG CAPSULE PO ×2 (17:08→20:29)
[2024-12-24] MEDS: PROPRANOLOL HCL 10 MG TABLET PO (17:08)
--- NOTE | 2024-12-24 17:34 | P.CONGI_ITS ---
Assessment and Plan Assessment and plan (1) Acute pancreatitis: Code(s): K85.90 - Acute pancreatitis without necrosis or infection, unspecified Status: Acute Assessment and Plan: While the precise etiology of the patient's pancreatitis is not yet clear, the transaminase elevation still raises suspicion for a biliary origin. A significant concern is the presence of hemoconcentration, evidenced by a hematocrit increase from 41.1 to 48.7 yesterday; (today's lab results are pending). Hemodylution results in adequate perfusion of the pancreas and prevents necrotizing pancreatitis. To better guide intravenous fluid administration (currently at 125 cc/hour, approximately 1.5 cc/kg/hr), we've initiated hematocrit controls every 8 hours. The patient will remain NPO for now. A baseline chest X-ray will also be obtained to assess for and prevent fluid overload. Upon recovery, we plan to repeat the gallbladder sonogram, as initial imaging may sometimes miss subtle biliary abnormalities such as sludge or small gallstones. (2) Pancreatitis: Code(s): K85.90 - Acute pancreatitis without necrosis or infection, unspecified Status: Acute GI Consult Note Consult date/time: 12/24/24 17:34 Reason for consult: Acute pancreatitis HPI: A 34-year-old female, Dorcas Wilder, presented with a severe episode of acute abdominal pain leading to admission. Previously asymptomatic, her pain, localized to the epigastrium with radiation to her back and right upper quadrant, and associated with nausea, began the day before admission and progressively worsened. Laboratory findings, including an elevated lipase, coupled with imaging demonstrating interstitial pancreatitis with inflammation, confirmed the diagnosis of acute pancreatitis. While transaminase levels were significantly elevated, both CT scan and ultrasound failed to show evidence of cholelithiasis. Of note, her social history includes daily alcohol and cannabis consumption. She is currently stable on intravenous hydration and analgesics, and is asymptomatic at the time of this assessment. Review of Systems 2 Review of Systems: All systems reviewed & are unremarkable except as noted in HPI and below PMFSH Past Medical History Medical History Marijuana smoker Bloody emesis Nausea and vomiting in adult Patient denies significant medical history Social History Social History (Updated 06/16/24 @ 16:03 by Teresa Sexton APRN) Smoking packs per day: 0.5 Smoking cigarettes per day: 10.0 Smoking status: Light tobacco smoker Alcohol intake: current Drinks per week: 10 Alcohol use details: 1/2 pint daily Substance use: current Substance use type: marijuana Other substance usage details: twice a day Do You Feel Safe in your Home?: Yes Lack of Transportation: No Lack of Food: Never True Current Housing: I Have Housing Concerned About Future Housing: No Difficulty Paying Gas/Electric Bills: No Difficulty Paying for Meds: No Currently Unemployed: No Education: High School Diploma/GED Difficulty w/ Childcare or Family Care: No Living arrangements: with family Spiritual care concerns: No Meds Home Medications and Allergies Home Medications ?Medication ?Instructions ?Recorded ?Confirmed ?Type ibuprofen 800 mg tablet 800 mg PO TID PRN pain 7 days #21 07/25/23 12/24/24 Rx tabs ondansetron 4 mg disintegrating 4 mg PO Q8H PRN nausea and 06/16/24 12/24/24 Rx tablet vomiting #12 tabs pantoprazole 40 mg tablet,delayed 40 mg PO QAM 14 days #14 tabs 06/16/24 12/24/24 Rx release (Protonix) gabapentin 400 mg capsule 400 mg PO QID 12/24/24 12/24/24 History naltrexone 50 mg tablet 50 mg PO DAILY 12/24/24 12/24/24 History propranolol 10 mg tablet 10 mg PO TID 12/24/24 12/24/24 History Allergies Allergy/AdvReac Type Severity Reaction Status Date / Time No Known Allergies Allergy Mild Verified 12/24/24 03:31 Vital Signs Vital Signs - 24 hr 12/23/24 23:40 12/24/24 01:21 12/24/24 01:23 Temperature 97.7 F 98.2 F Pulse Rate 135 H 109 H 114 H Respiratory Rate 18 17 18 Blood Pressure 150/111 H 142/109 H Pulse Oximetry 100 100 99 Oxygen Delivery Room Air 12/24/24 01:23 12/24/24 01:30 12/24/24 01:30 Temperature Pulse Rate 115 H 117 H 127 H Respiratory Rate 18 Blood Pressure 141/107 H 142/109 H 143/107 H Pulse Oximetry 99 Oxygen Delivery 12/24/24 01:31 12/24/24 01:34 12/24/24 01:45 Temperature Pulse Rate 153 H 111 H 100 Respiratory Rate 18 19 Blood Pressure 127/99 H Pulse Oximetry 99 100 Oxygen Delivery 12/24/24 01:46 12/24/24 02:00 12/24/24 02:01 Temperature Pulse Rate 95 99 89 Respiratory Rate 14 19 14 Blood Pressure 148/105 H 133/103 H Pulse Oximetry 100 100 99 Oxygen Delivery 12/24/24 02:52 12/24/24 03:44 12/24/24 04:06 Temperature Pulse Rate 116 H 109 H 103 H Respiratory Rate 19 19 16 Blood Pressure Pulse Oximetry 100 100 Oxygen Delivery 12/24/24 04:29 12/24/24 04:30 12/24/24 04:31 Temperature Pulse Rate 98 103 H 114 H Respiratory Rate 16 26 H 22 H Blood Pressure 145/100 H Pulse Oximetry 100 96 100 Oxygen Delivery 12/24/24 05:00 12/24/24 05:18 12/24/24 05:31 Temperature Pulse Rate 90 88 98 Respiratory Rate 18 16 17 Blood Pressure 143/97 H 142/94 H Pulse Oximetry 98 97 99 Oxygen Delivery 12/24/24 07:03 12/24/24 09:36 12/24/24 09:46 Temperature 97.8 F Pulse Rate 88 83 Respiratory Rate 17 18 Blood Pressure 142/98 H 151/108 H Pulse Oximetry 99 100 100 Oxygen Delivery Room Air 12/24/24 14:00 12/24/24 17:08 Temperature 98.3 F Pulse Rate 74 74 Respiratory Rate 18 Blood Pressure 140/97 H Pulse Oximetry 99 Oxygen Delivery Exam 2 Narrative: Abdomen: Soft, tender to deep palpation in the epigastrium and both upper quadrants. rest of the examination within normal limits. Results Labs 12/23/24 23:55 12/24/24 01:29 Labs: Short CBC 12/23/24 Range/Units 23:55 WBC 7.5 (4.5-10.0) K/mm3 Hgb 16.4 H (12.0-15.0) g/dL Hct 48.7 H (37.0-47.0) % Plt Count 215 (150-375) k/mm3 BMP 12/24/24 01:29 Sodium 140 Potassium 4.4 Chloride 99 Carbon Dioxide 13 L BUN 8 Creatinine 0.73 Glucose 106 Calcium 9.8 Liver Function 12/24/24 Range/Units 01:29 Total Bilirubin 1.4 H (0.2-1.3) mg/dL AST 296 H (14-36) U/L ALT 135 H (6-35) U/L Alkaline Phosphatase 98 (38-126) U/L Albumin 5.4 H (3.5-5.1) g/dL Urine 12/24/24 Range/Units 01:21 Urine Color Yellow (Yellow) Urine Appearance Cloudy H (Clear) Urine pH 6.0 (5.0-9.0) Ur Specific [place] 1.028 (1.001-1.035) Urine Protein 4+ H (Negative) mg/dL Urine Glucose (UA) Negative (Negative) mg/dL
[2024-12-24 17:41] LABS: Hematocrit 40.0 % (37.0-47.0); Hemoglobin 13.3 g/dL (12.0-15.0); Mean Corpuscular HGB Conc 33.3 g/dl (32-36); Mean Corpuscular Hemoglobin 34.5 pg (26-34); Mean Corpuscular Volume 103.6 fl (80-100); Platelet Count Result 134 k/mm3 (150-375); Red Blood Count 3.86 M/mm3 (4.2-5.4); White Blood Count 5.3 K/mm3 (4.5-10.0)
[2024-12-24 17:53] LABS: Alanine Aminotransferase 87 U/L (6-35); Albumin Level 4.1 g/dL (3.5-5.1); Alkaline Phosphatase 62 U/L (38-126); Anion Gap 16 mmol/L (4-12); Aspartate Amino Transferase 144 U/L (14-36); Bilirubin,Total 1.2 mg/dL (0.2-1.3); Blood Urea Nitrogen 4 mg/dL (7-17); Calcium 8.7 mg/dL (8.4-10.2); Carbon Dioxide 16 mmol/L (22-30); Chloride 103 mmol/L (98-107); Estimated CRCL calculation 152 ml/min; Estimated Glomerular Filt Rate > 60; Glucose 70 mg/dL (65-110); Potassium 3.7 mmol/L (3.4-5.0); Sodium 135 mmol/L (137-145); Total Protein 7.0 g/dL (6.3-8.2)
[2024-12-24 19:00] LABS: Hepatitis B Surface Antigen Negative (Negative)
[2024-12-24 19:06] LABS: HAV RESULT Negative (Negative); Hepatitis B Core IgM Result Negative (Negative)
[2024-12-25] MEDS: MORPHINE SULFATE (*CRX) 2 MG/ML INJ IV PUSH ×3 (00:14→22:00)
[2024-12-25 01:39] LABS: Hematocrit 40.8 % (37.0-47.0); Hemoglobin 13.4 g/dL (12.0-15.0); Immature Platelet Fraction Pct 3.3 % (0.9-11.2); Mean Corpuscular HGB Conc 32.8 g/dl (32-36); Mean Corpuscular Hemoglobin 34.0 pg (26-34); Mean Corpuscular Volume 103.6 fl (80-100); Platelet Count Result 124 k/mm3 (150-375); Red Blood Count 3.94 M/mm3 (4.2-5.4); White Blood Count 5.3 K/mm3 (4.5-10.0)
[2024-12-25 01:55] LABS: Alanine Aminotransferase 86 U/L (6-35); Albumin Level 3.7 g/dL (3.5-5.1); Alkaline Phosphatase 58 U/L (38-126); Anion Gap 12 mmol/L (4-12); Aspartate Amino Transferase 176 U/L (14-36); Bilirubin,Total 1.2 mg/dL (0.2-1.3); Blood Urea Nitrogen 3 mg/dL (7-17); Calcium 8.5 mg/dL (8.4-10.2); Carbon Dioxide 21 mmol/L (22-30); Chloride 99 mmol/L (98-107); Estimated CRCL calculation 174 ml/min; Estimated Glomerular Filt Rate > 60; Glucose 77 mg/dL (65-110); Potassium 3.2 mmol/L (3.4-5.0); Sodium 132 mmol/L (137-145); Total Protein 6.6 g/dL (6.3-8.2)
[2024-12-25] MEDS: LACTATED RINGERS 1,000 ML 125 ML IV CONT (04:21)
[2024-12-25 05:09] VITALS: BP 137/96; PULSE 93; RESP 16; TEMP 36.1; O2SAT 95
[2024-12-25 06:42] LABS: Hematocrit 40.5 % (37.0-47.0); Hemoglobin 13.4 g/dL (12.0-15.0); Immature Granulocyte Percent A 0.4 % (0-0.5); Lymphocytes Absolute Auto 0.97 K/mm3 (0.9-3.2); Mean Corpuscular HGB Conc 33.1 g/dl (32-36); Mean Corpuscular Hemoglobin 34.2 pg (26-34); Mean Corpuscular Volume 103.3 fl (80-100); Nucleated Red Blood Cells Absolute Auto 0.000 K/mm3 (0.0-0.012); Nucleated Red Blood Cells Perc 0.0 % (0.0-0.2); Platelet Count Result 117 k/mm3 (150-375); Red Blood Count 3.92 M/mm3 (4.2-5.4); White Blood Count 5.3 K/mm3 (4.5-10.0)
[2024-12-25 07:03] LABS: Alanine Aminotransferase 90 U/L (6-35); Albumin Level 3.7 g/dL (3.5-5.1); Alkaline Phosphatase 58 U/L (38-126); Anion Gap 13 mmol/L (4-12); Aspartate Amino Transferase 169 U/L (14-36); Bilirubin,Total 1.1 mg/dL (0.2-1.3); Blood Urea Nitrogen 2 mg/dL (7-17); Calcium 8.6 mg/dL (8.4-10.2); Carbon Dioxide 22 mmol/L (22-30); Chloride 97 mmol/L (98-107); Estimated CRCL calculation 181 ml/min; Estimated Glomerular Filt Rate > 60; Glucose 78 mg/dL (65-110); Magnesium 1.4 mg/dL (1.6-2.3); Potassium 3.2 mmol/L (3.4-5.0); Sodium 132 mmol/L (137-145); Total Protein 6.6 g/dL (6.3-8.2)
--- NOTE | 2024-12-25 08:05 | P.PNIM_ITS ---
Progress Note: A&P Assessment and Plan (1) Pancreatitis: Code(s): K85.90 - Acute pancreatitis without necrosis or infection, unspecified Status: Acute Assessment and Plan: * Acute * IVF: LR 125mls/hour * trend lipase, currently: 661 * AST, ALT, total bilirubin. trend LFTs * pain control with Tylenol * Zofran prn for nausea * CTA abd/pelvis/chest: Mild acute pancreatitis about the pancreatic head. Diffuse hepatic steatosis. No other significant findings. * GI consulted, awaiting recs * NPO except Ice chips * Continue IVF hydration * Baseline CXR to prevent fluid overload * Upon recovery - repeat gallbladder sonogram (2) Transaminitis: Code(s): R74.01 - Elevation of levels of liver transaminase levels Status: Acute Assessment and Plan: * AST/ALT 296/135 * RUQ US: Diffuse hepatic steatosis. Normal gallbladder with no cholelithiasis or intra-/extrahepatic biliary ductal dilation. * GI consult pending, awaiting recs * Likely biliary in origin (3) Hypomagnesemia: Code(s): E83.42 - Hypomagnesemia Status: Acute Assessment and Plan: * In ED: Mg 1.4 * Replace with IV mg sulfate * Monitor daily * Replace as needed * 7/2: Mg 1.4 (4) Marijuana use: Code(s): F12.90 - Cannabis use, unspecified, uncomplicated Status: Acute Assessment and Plan: * Likely etiology of n/v * Counseled of cessation/use of moderation (5) Urine test positive: Code(s): Z32.01 - Encounter for test, result positive Status: Acute Assessment and Plan: * + in ED * OB US: No evident gestational sac for which differential would include early , failed or ectopic . Recommend follow-up with serial beta hCGs with repeat imaging as clinically indicated. * Continue with serial beta hCGs Subjective Date/time seen: 12/25/24 08:05 Interval history: 34-year-old female with a past medical history of marijuana use who presents to the hospital with nausea, vomiting, and abdominal pain for the past several days. 12/25/2024 [address]fortably in bed at time of examination. Denies any chest pain, shortness of breath, nausea/vomiting. Still endorsing some of right/left upper quadrants on deep palpation. Seen by GI, agree with IV fluid hydration and H&H monitoring. Will continue NPO for now and obtain a baseline chest x-ray to assess for and prevent fluid overload. Will also plan on obtaining gallbladder sonogram upon resolution of symptoms. Review of Systems Review of Systems: All systems reviewed & are unremarkable except as noted in HPI and below Exam Narrative: Gen - well appearing female in no acute respiratory distress who is nontoxic- appearing lying semi recumbent in bed HEENT - normocephalic. Atraumatic. Pupils equal round and reactive. Extraocular motions intact. Sclera clear and anicteric. Nares patent. Moist mucous membranes. No facial asymmetry. Neck - neck was supple. No dominant adenopathy, thyromegaly or masses. 2+ carotid upstrokes without bruits. Chest - lungs are clear to auscultation bilaterally. No wheezes or crackles. Breast exam was deferred. CV - heart was regular rate and rhythm. S1-S2. No murmurs gallops or rubs. Abd - Soft, tender to deep palpation in the epigastrium and both upper quadrants. Nondistended. Positive bowel sounds. No organomegaly or masses. Ext - no clubbing, cyanosis or edema. 2+ DP pulses bilaterally. Neuro - patient is alert and oriented x4. Strength is 5/5 in both upper and lower extremities. Cranial nerves 2-12 are intact. Speech is clear. Psych - normal mood and affect. Patient is pleasant and cooperative. Skin - warm and dry. No rashes noted. Objective Data Vital Signs Vital Signs: Vital Signs - 24 hr 12/24/24 09:36 12/24/24 09:46 12/24/24 14:00 Temperature 97.8 F 98.3 F Pulse Rate 83 74 Respiratory Rate 18 18 Blood Pressure 151/108 H 140/97 H Pulse Oximetry 100 100 99 Oxygen Delivery Room Air 12/24/24 17:08 12/24/24 20:12 12/25/24 05:09 Temperature 96.8 F L 97.0 F L Pulse Rate 74 77 93 Respiratory Rate 18 16 Blood Pressure 149/98 H 137/96 H Pulse Oximetry 97 95 Oxygen Delivery Intake/Output Intake/Output: Intake & Output 12/22/24 12/23/24 12/24/24 12/25/24 23:59 23:59 23:59 23:59 Intake Total 4675.0 977.1 Balance 4675.0 977.1 Meds/Results Medications: Active Medications Generic Name Dose Route Start Last Admin Trade Name Freq PRN Reason Stop Dose Admin Acetaminophen 650 mg 12/24/24 05:46 Acetaminophen 325 Mg Tablet PO Q4H PRN Mild Pain (1-3) or Fever Gabapentin 400 mg 12/24/24 17:00 12/24/24 20:29 Gabapentin 400 Mg Capsule PO 400 mg QID PHIL Administration Lactated Ringer's 1,000 mls @ 75 mls/hr 12/24/24 05:50 12/25/24 04:21 Lr - Lactated Ringers Iv IV CONT 125 mls/hr .[id number] PHIL Administration Magnesium Oxide 400 mg 12/25/24 08:10 Magnesium Oxide 400 Mg Tablet PO 12/25/24 08:11 ONCE ONE Morphine Sulfate 2 mg 12/24/24 05:46 12/25/24 00:14 Morphine Sulfate (*Crx) 2 Mg/Ml Inj IV PUSH 2 mg Q2H PRN Administration Pain Rated 7-10 Ondansetron HCl 4 mg 12/24/24 05:46 12/24/24 13:25 Ondansetron Inj 4 Mg/2 Ml Vial IV PUSH 4 mg Q4H PRN Administration Nausea Potassium Chloride 20 meq 12/25/24 08:10 Potassium Chloride 20 Meq Er Tablet PO 12/25/24 08:11 ONCE ONE Propranolol HCl 10 mg 12/24/24 17:00 12/24/24 17:08 Propranolol Hcl 10 Mg Tablet PO 10 mg TID PHIL Administration Radiology Results: ITS Impressions Chest/Abdomen/Pelvis CTA 12/24/24 05:39 Impression: Mild acute pancreatitis about the pancreatic head. Diffuse hepatic steatosis. No other significant findings. Obstetrics Ultrasound 12/24/24 08:50 IMPRESSION: 1. No evident gestational sac for which differential would include early , failed or ectopic . Recommend follow-up with serial beta hCGs with repeat imaging as clinically indicated. Abdomen Ultrasound 12/24/24 09:31 IMPRESSION: 1. Diffuse hepatic steatosis. 2. Normal gallbladder with no cholelithiasis or intra-/extrahepatic biliary ductal dilation. Chest X-Ray 12/24/24 17:06 IMPRESSION: No focal infiltrate or effusion. Labs Labs: Laboratory Results - last 24 hr 12/24/24 12/25/24 12/25/24 17:24 01:27 06:20 WBC 5.3 5.3 5.3 RBC 3.86 L 3.94 L 3.92 L Hgb 13.3 D 13.4 13.4 Hct 40.0 40.8 40.5 MCV 103.6 H 103.6 H 103.3 H MCH 34.5 H 34.0 34.2 H MCHC 33.3 32.8 33.1 RDW 14.3 14.1 14.0 Plt Count 134 L 124 L 117 L MPV 9.4 9.8 10.0 Immature Gran % (Auto) 0.4 Neut % (Auto) 72.4 Lymph % (Auto) 18.2 L [place] % (Auto) 6.2 Eos % (Auto) 2.4 Baso % (Auto) 0.4 Lymph # (Auto) 0.97 [place] # (Auto) 0.3 Eos # (Auto) 0.1 Baso # (Auto) 0.0 Abs Immat Gran (auto) 0.02 Absolute Neuts (auto) 3.9 Absolute Nucleated RBC 0.000 Nucleated RBC % 0.0 % Immature Plt Fraction 3.3 Sodium 135 L 132 L 132 L Potassium 3.7 3.2 L 3.2 L Chloride 103 99 97 L Carbon Dioxide 16 L 21 L 22 Anion Gap 16 H 12 13 H BUN 4 L 3 L 2 L Creatinine 0.51 L 0.44 L 0.42 L Estim Creat Clear Calc 152 174 181 Estimated GFR > 60 > 60 > 60 Glucose 70 77 78 Calcium 8.7 8.5 8.6 Magnesium 1.4 L Total Bilirubin 1.2 1.2 1.1 AST 144 H 176 H 169 H ALT 87 H 86 H 90 H Alkaline Phosphatase 62 58 58 Total Protein 7.0 6.6 6.6 Albumin 4.1 3.7 3.7 Hepatitis A IgM Ab Negative Hep Bs Antigen Negative Hep B Core IgM Ab Negative Hepatitis C Ab Screen Negative
[2024-12-25] MEDS: GABAPENTIN 400 MG CAPSULE PO ×4 (08:55→21:52)
[2024-12-25] MEDS: PROPRANOLOL HCL 10 MG TABLET PO ×3 (08:55→17:43)
[2024-12-25] MEDS: MAGNESIUM OXIDE 400 MG TABLET PO (08:55)
[2024-12-25] MEDS: POTASSIUM CHLORIDE 20 MEQ ER TABLET PO (08:56)
--- NOTE | 2024-12-25 12:55 | P.PNGI_ITS ---
Progress Note: A&P Assessment and Plan (1) Pancreatitis: Code(s): K85.90 - Acute pancreatitis without necrosis or infection, unspecified Status: Acute Assessment and Plan: The patient is being treated for a mild episode of acute pancreatitis and has a positive response to fluid resuscitation. This is well-reflected by a favorable decrease in her hematocrit from 48% to 40%, indicating effective volume rep lacement (hemodylution) which translates in better perfusion. The most probable etiology for her pancreatitis is chronic alcohol consumption, as she reports daily intake of approximately one 6-pack of beer. Comprehensive imaging, including both CT scan and ultrasound, has ruled out cholelithiasis. Furthermore, her elevated transaminase levels, particularly the AST/ALT ratio, are consistent with alcohol-induced liver injury as well, although not as severe to qualify for alcoholic hepatitis. Today, she will be initiated on a full liquid diet. Should this be well- tolerated, discharge may be considered for tomorrow. Subjective Date/time seen: 12/25/24 12:55 Interval history: The patient looked comfortable this morning, did not complain of abdominal pain. No nausea or vomiting. Exam Narrative: Abdomen: Nontender, nondistended, bowel sounds present. Objective Data Vital Signs Vital Signs: Vital Signs - 24 hr 12/24/24 14:00 12/24/24 17:08 12/24/24 20:12 Temperature 98.3 F 96.8 F L Pulse Rate 74 74 77 Respiratory Rate 18 18 Blood Pressure 140/97 H 149/98 H Pulse Oximetry 99 97 Oxygen Delivery 12/25/24 05:09 12/25/24 08:00 Temperature 97.0 F L Pulse Rate 93 Respiratory Rate 16 Blood Pressure 137/96 H Pulse Oximetry 95 Oxygen Delivery Room Air Intake/Output Intake/Output: Intake & Output 12/22/24 12/23/24 12/24/24 12/25/24 23:59 23:59 23:59 23:59 Intake Total 4675.0 1217.1 Balance 4675.0 1217.1 Meds/Results Medications: Active Medications Generic Name Dose Route Start Last Admin Trade Name Freq PRN Reason Stop Dose Admin Acetaminophen 650 mg 12/24/24 05:46 Acetaminophen 325 Mg Tablet PO Q4H PRN Mild Pain (1-3) or Fever Gabapentin 400 mg 12/24/24 17:00 12/25/24 08:55 Gabapentin 400 Mg Capsule PO 400 mg QID PHIL Administration Lactated Ringer's 1,000 mls @ 75 mls/hr 12/24/24 05:50 12/25/24 04:21 Lr - Lactated Ringers Iv IV CONT 125 mls/hr .[id number] PHIL Administration Magnesium Oxide 400 mg 12/25/24 09:00 12/25/24 08:55 Magnesium Oxide 400 Mg Tablet PO 400 mg DAILY PHIL Administration Morphine Sulfate 2 mg 12/24/24 05:46 12/25/24 00:14 Morphine Sulfate (*Crx) 2 Mg/Ml Inj IV PUSH 2 mg Q2H PRN Administration Pain Rated 7-10 Ondansetron HCl 4 mg 12/24/24 05:46 12/24/24 13:25 Ondansetron Inj 4 Mg/2 Ml Vial IV PUSH 4 mg Q4H PRN Administration Nausea Propranolol HCl 10 mg 12/24/24 17:00 12/25/24 08:55 Propranolol Hcl 10 Mg Tablet PO 10 mg TID PHIL Administration Radiology Results: ITS Impressions Chest/Abdomen/Pelvis CTA 12/24/24 05:39 Impression: Mild acute pancreatitis about the pancreatic head. Diffuse hepatic steatosis. No other significant findings. Obstetrics Ultrasound 12/24/24 08:50 IMPRESSION: 1. No evident gestational sac for which differential would include early , failed or ectopic . Recommend follow-up with serial beta hCGs with repeat imaging as clinically indicated. Abdomen Ultrasound 12/24/24 09:31 IMPRESSION: 1. Diffuse hepatic steatosis. 2. Normal gallbladder with no cholelithiasis or intra-/extrahepatic biliary ductal dilation. Chest X-Ray 12/24/24 17:06 IMPRESSION: No focal infiltrate or effusion. Labs Labs: Laboratory Results - last 24 hr 12/24/24 12/25/24 12/25/24 17:24 01:27 06:20 WBC 5.3 5.3 5.3 RBC 3.86 L 3.94 L 3.92 L Hgb 13.3 D 13.4 13.4 Hct 40.0 40.8 40.5 MCV 103.6 H 103.6 H 103.3 H MCH 34.5 H 34.0 34.2 H MCHC 33.3 32.8 33.1 RDW 14.3 14.1 14.0 Plt Count 134 L 124 L 117 L MPV 9.4 9.8 10.0 Immature Gran % (Auto) 0.4 Neut % (Auto) 72.4 Lymph % (Auto) 18.2 L [place] % (Auto) 6.2 Eos % (Auto) 2.4 Baso % (Auto) 0.4 Lymph # (Auto) 0.97 [place] # (Auto) 0.3 Eos # (Auto) 0.1 Baso # (Auto) 0.0 Abs Immat Gran (auto) 0.02 Absolute Neuts (auto) 3.9 Absolute Nucleated RBC 0.000 Nucleated RBC % 0.0 % Immature Plt Fraction 3.3 Sodium 135 L 132 L 132 L Potassium 3.7 3.2 L 3.2 L Chloride 103 99 97 L Carbon Dioxide 16 L 21 L 22 Anion Gap 16 H 12 13 H BUN 4 L 3 L 2 L Creatinine 0.51 L 0.44 L 0.42 L Estim Creat Clear Calc 152 174 181 Estimated GFR > 60 > 60 > 60 Glucose 70 77 78 Calcium 8.7 8.5 8.6 Magnesium 1.4 L Total Bilirubin 1.2 1.2 1.1 AST 144 H 176 H 169 H ALT 87 H 86 H 90 H Alkaline Phosphatase 62 58 58 Total Protein 7.0 6.6 6.6 Albumin 4.1 3.7 3.7 Hepatitis A IgM Ab Negative Hep Bs Antigen Negative Hep B Core IgM Ab Negative Hepatitis C Ab Screen Negative
[2024-12-25 14:00] VITALS: BP 134/96; PULSE 79; RESP 18; TEMP 35.9; O2SAT 97
[2024-12-25] MEDS: LACTATED RINGERS 1,000 ML 75 ML IV CONT (14:33)
[2024-12-25 17:06] LABS: Hematocrit 40.6 % (37.0-47.0); Hemoglobin 13.7 g/dL (12.0-15.0); Mean Corpuscular HGB Conc 33.7 g/dl (32-36); Mean Corpuscular Hemoglobin 34.3 pg (26-34); Mean Corpuscular Volume 101.5 fl (80-100); Platelet Count Result 115 k/mm3 (150-375); Red Blood Count 4.00 M/mm3 (4.2-5.4); White Blood Count 3.9 K/mm3 (4.5-10.0)
[2024-12-25 17:21] LABS: Alanine Aminotransferase 90 U/L (6-35); Albumin Level 3.8 g/dL (3.5-5.1); Alkaline Phosphatase 65 U/L (38-126); Anion Gap 9 mmol/L (4-12); Aspartate Amino Transferase 161 U/L (14-36); Bilirubin,Total 1.1 mg/dL (0.2-1.3); Calcium 8.9 mg/dL (8.4-10.2); Carbon Dioxide 27 mmol/L (22-30); Chloride 95 mmol/L (98-107); Estimated CRCL calculation 181 ml/min; Estimated Glomerular Filt Rate > 60; Glucose 99 mg/dL (65-110); Potassium 3.2 mmol/L (3.4-5.0); Sodium 131 mmol/L (137-145); Total Protein 6.8 g/dL (6.3-8.2)
[2024-12-25 17:29] LABS: Blood Urea Nitrogen < 2 mg/dL (7-17)
[2024-12-25 19:53] VITALS: BP 142/95; PULSE 89; RESP 16; TEMP 36.7; O2SAT 100
[2024-12-25 21:11] VITALS: O2SAT 99
[2024-12-26] MEDS: LACTATED RINGERS 1,000 ML 75 ML IV CONT (04:38)
[2024-12-26 05:32] VITALS: BP 131/80; PULSE 84; RESP 14; TEMP 37.2; O2SAT 97
[2024-12-26 06:52] LABS: Hematocrit 41.6 % (37.0-47.0); Hemoglobin 14.0 g/dL (12.0-15.0); Immature Platelet Fraction Pct 5.3 % (0.9-11.2); Mean Corpuscular HGB Conc 33.7 g/dl (32-36); Mean Corpuscular Hemoglobin 34.3 pg (26-34); Mean Corpuscular Volume 102.0 fl (80-100); Platelet Count Result 112 k/mm3 (150-375); Red Blood Count 4.08 M/mm3 (4.2-5.4); White Blood Count 3.6 K/mm3 (4.5-10.0)
--- NOTE | 2024-12-26 07:07 | WPDGIPROGNO ---
Progress Note: A&P Assessment and Plan (1) Acute pancreatitis: Code(s): K85.90 - Acute pancreatitis without necrosis or infection, unspecified Status: Acute Assessment and Plan: The patient is experiencing resolving mild acute pancreatitis, presumed to be due to alcohol ingestion. This etiology is supported by the absence of gallbladder pathology, her reported daily vodka intake (1 pint), and the pattern of mild to moderate transaminase elevation with AST > ALT. The patient has been advised to completely abstain from alcohol and has agreed to start baclofen 10 mg three times daily to help mitigate alcohol cravings. She has also been instructed to follow a low-fat diet and avoid red meats. Plan - d/c home on Baclofen 10 mg tiD Subjective Date/time seen: 12/26/24 07:07 Interval history: The patient did not have further above pain episodes and tolerated food yesterday. Exam Narrative: Abdomen: Soft, nontender, nondistended, bowel sounds present. Rest of the exam within normal limits. Objective Data Vital Signs Vital Signs: Vital Signs - 24 hr 12/25/24 08:00 12/25/24 14:00 12/25/24 19:53 Temperature 96.7 F L 98.0 F Pulse Rate 79 89 Respiratory Rate 18 16 Blood Pressure 134/96 H 142/95 H Pulse Oximetry 97 100 Oxygen Delivery Room Air 12/25/24 21:11 12/26/24 05:32 Temperature 98.9 F Pulse Rate 84 Respiratory Rate 14 Blood Pressure 131/80 Pulse Oximetry 99 97 Oxygen Delivery Room Air Intake/Output Intake/Output: Intake & Output 12/23/24 12/24/24 12/25/24 12/26/24 23:59 23:59 23:59 23:59 Intake Total 4675.0 2697.1 1518 Balance 4675.0 2697.1 1518 Meds/Results Medications: Active Medications Generic Name Dose Route Start Last Admin Trade Name Freq PRN Reason Stop Dose Admin Acetaminophen 650 mg 12/24/24 05:46 Acetaminophen 325 Mg Tablet PO Q4H PRN Mild Pain (1-3) or Fever Gabapentin 400 mg 12/24/24 17:00 12/25/24 21:52 Gabapentin 400 Mg Capsule PO 400 mg QID PHIL Administration Lactated Ringer's 1,000 mls @ 75 mls/hr 12/24/24 05:50 12/26/24 04:38 Lr - Lactated Ringers Iv IV CONT 75 mls/hr .[id number] PHIL Administration Magnesium Oxide 400 mg 12/25/24 09:00 12/25/24 08:55 Magnesium Oxide 400 Mg Tablet PO 400 mg DAILY PHIL Administration Morphine Sulfate 2 mg 12/24/24 05:46 12/25/24 22:00 Morphine Sulfate (*Crx) 2 Mg/Ml Inj IV PUSH 2 mg Q2H PRN Administration Pain Rated 7-10 Ondansetron HCl 4 mg 12/24/24 05:46 12/24/24 13:25 Ondansetron Inj 4 Mg/2 Ml Vial IV PUSH 4 mg Q4H PRN Administration Nausea Propranolol HCl 10 mg 12/24/24 17:00 12/25/24 17:43 Propranolol Hcl 10 Mg Tablet PO 10 mg TID PHIL Administration Radiology Results: ITS Impressions Chest/Abdomen/Pelvis CTA 12/24/24 05:39 Impression: Mild acute pancreatitis about the pancreatic head. Diffuse hepatic steatosis. No other significant findings. Obstetrics Ultrasound 12/24/24 08:50 IMPRESSION: 1. No evident gestational sac for which differential would include early , failed or ectopic . Recommend follow-up with serial beta hCGs with repeat imaging as clinically indicated. Abdomen Ultrasound 12/24/24 09:31 IMPRESSION: 1. Diffuse hepatic steatosis. 2. Normal gallbladder with no cholelithiasis or intra-/extrahepatic biliary ductal dilation. Chest X-Ray 12/24/24 17:06 IMPRESSION: No focal infiltrate or effusion. Labs Labs: Laboratory Results - last 24 hr 12/25/24 12/26/24 16:58 06:05 WBC 3.9 L 3.6 L RBC 4.00 L 4.08 L Hgb 13.7 14.0 Hct 40.6 41.6 MCV 101.5 H 102.0 H MCH 34.3 H 34.3 H MCHC 33.7 33.7 RDW 13.8 13.5 Plt Count 115 L 112 L MPV 9.8 10.4 % Immature Plt Fraction 5.3 Sodium 131 L Potassium 3.2 L Chloride 95 L Carbon Dioxide 27 Anion Gap 9 BUN < 2 L Creatinine 0.42 L Estim Creat Clear Calc 181 Estimated GFR > 60 Glucose 99 Calcium 8.9 Total Bilirubin 1.1 AST 161 H ALT 90 H Alkaline Phosphatase 65 Total Protein 6.8 Albumin 3.8
[2024-12-26 07:16] LABS: Alanine Aminotransferase 107 U/L (6-35); Albumin Level 3.7 g/dL (3.5-5.1); Alkaline Phosphatase 59 U/L (38-126); Anion Gap 9 mmol/L (4-12); Aspartate Amino Transferase 213 U/L (14-36); Bilirubin,Total 1.0 mg/dL (0.2-1.3); Calcium 9.0 mg/dL (8.4-10.2); Carbon Dioxide 29 mmol/L (22-30); Chloride 94 mmol/L (98-107); Estimated CRCL calculation 167 ml/min; Estimated Glomerular Filt Rate > 60; Glucose 95 mg/dL (65-110); Potassium 2.6 mmol/L (3.4-5.0); Sodium 132 mmol/L (137-145); Total Protein 6.5 g/dL (6.3-8.2)
[2024-12-26 07:19] LABS: Blood Urea Nitrogen < 2 mg/dL (7-17)
--- NOTE | 2024-12-26 07:46 | P.PNIM_ITS ---
Progress Note: A&P Assessment and Plan (1) Pancreatitis: Code(s): K85.90 - Acute pancreatitis without necrosis or infection, unspecified Status: Acute Assessment and Plan: * Acute * IVF: LR 125mls/hour * trend lipase, currently: 661 * AST, ALT, total bilirubin. trend LFTs * pain control with Tylenol * Zofran prn for nausea * CTA abd/pelvis/chest: Mild acute pancreatitis about the pancreatic head. Diffuse hepatic steatosis. No other significant findings. * GI consulted, awaiting recs * NPO except Ice chips * Continue IVF hydration * Baseline CXR to prevent fluid overload * Upon recovery - repeat gallbladder sonogram (2) Transaminitis: Code(s): R74.01 - Elevation of levels of liver transaminase levels Status: Acute Assessment and Plan: * AST/ALT 296/135 * RUQ US: Diffuse hepatic steatosis. Normal gallbladder with no cholelithiasis or intra-/extrahepatic biliary ductal dilation. * GI consult pending, awaiting recs * Likely biliary in origin (3) Hypomagnesemia: Code(s): E83.42 - Hypomagnesemia Status: Acute Assessment and Plan: * In ED: Mg 1.4 * Replace with IV mg sulfate * Monitor daily * Replace as needed * 7/2: Mg 1.4 (4) Marijuana use: Code(s): F12.90 - Cannabis use, unspecified, uncomplicated Status: Acute Assessment and Plan: * Likely etiology of n/v * Counseled of cessation/use of moderation (5) Urine test positive: Code(s): Z32.01 - Encounter for test, result positive Status: Acute Assessment and Plan: * + in ED * OB US: No evident gestational sac for which differential would include early , failed or ectopic . Recommend follow-up with serial beta hCGs with repeat imaging as clinically indicated. * Continue with serial beta hCGs Subjective Date/time seen: 12/26/24 07:46 Interval history: The patient did not have further above pain episodes and tolerated food yesterday. Review of Systems Review of Systems: All systems reviewed & are unremarkable except as noted in HPI and below Exam Narrative: Gen - well appearing female in no acute respiratory distress who is nontoxic- appearing lying semi recumbent in bed HEENT - normocephalic. Atraumatic. Pupils equal round and reactive. Extraocular motions intact. Sclera clear and anicteric. Nares patent. Moist mucous membranes. No facial asymmetry. Neck - neck was supple. No dominant adenopathy, thyromegaly or masses. 2+ carotid upstrokes without bruits. Chest - lungs are clear to auscultation bilaterally. No wheezes or crackles. Breast exam was deferred. CV - heart was regular rate and rhythm. S1-S2. No murmurs gallops or rubs. Abd - Soft, tender to deep palpation in the epigastrium and both upper rosita drants. Nondistended. Positive bowel sounds. No organomegaly or masses. Ext - no clubbing, cyanosis or edema. 2+ DP pulses bilaterally. Neuro - patient is alert and oriented x4. Strength is 5/5 in both upper and lower extremities. Cranial nerves 2-12 are intact. Speech is clear. Psych - normal mood and affect. Patient is pleasant and cooperative. Skin - warm and dry. No rashes noted. Objective Data Vital Signs Vital Signs: Vital Signs - 24 hr 12/25/24 08:00 12/25/24 14:00 12/25/24 19:53 Temperature 96.7 F L 98.0 F Pulse Rate 79 89 Respiratory Rate 18 16 Blood Pressure 134/96 H 142/95 H Pulse Oximetry 97 100 Oxygen Delivery Room Air 12/25/24 21:11 12/26/24 05:32 Temperature 98.9 F Pulse Rate 84 Respiratory Rate 14 Blood Pressure 131/80 Pulse Oximetry 99 97 Oxygen Delivery Room Air Intake/Output Intake/Output: Intake & Output 12/23/24 12/24/24 12/25/24 12/26/24 23:59 23:59 23:59 23:59 Intake Total 4675.0 2697.1 1518 Balance 4675.0 2697.1 1518 Meds/Results Medications: Active Medications Generic Name Dose Route Start Last Admin Trade Name Freq PRN Reason Stop Dose Admin Acetaminophen 650 mg 12/24/24 05:46 Acetaminophen 325 Mg Tablet PO Q4H PRN Mild Pain (1-3) or Fever Gabapentin 400 mg 12/24/24 17:00 12/25/24 21:52 Gabapentin 400 Mg Capsule PO 400 mg QID PHIL Administration Lactated Ringer's 1,000 mls @ 75 mls/hr 12/24/24 05:50 12/26/24 04:38 Lr - Lactated Ringers Iv IV CONT 75 mls/hr .[id number] PHIL Administration Potassium Chloride 40 meq/ 520 mls @ 130 mls/hr 12/26/24 07:36 Sodium Chloride IVPB 12/26/24 11:35 ONCE ONE Magnesium Oxide 400 mg 12/25/24 09:00 12/25/24 08:55 Magnesium Oxide 400 Mg Tablet PO 400 mg DAILY PHIL Administration Morphine Sulfate 2 mg 12/24/24 05:46 12/25/24 22:00 Morphine Sulfate (*Crx) 2 Mg/Ml Inj IV PUSH 2 mg Q2H PRN Administration Pain Rated 7-10 Ondansetron HCl 4 mg 12/24/24 05:46 12/24/24 13:25 Ondansetron Inj 4 Mg/2 Ml Vial IV PUSH 4 mg Q4H PRN Administration Nausea Propranolol HCl 10 mg 12/24/24 17:00 12/25/24 17:43 Propranolol Hcl 10 Mg Tablet PO 10 mg TID PHIL Administration Radiology Results: ITS Impressions Chest/Abdomen/Pelvis CTA 12/24/24 05:39 Impression: Mild acute pancreatitis about the pancreatic head. Diffuse hepatic steatosis. No other significant findings. Obstetrics Ultrasound 12/24/24 08:50 IMPRESSION: 1. No evident gestational sac for which differential would include early , failed or ectopic . Recommend follow-up with serial beta hCGs with repeat imaging as clinically indicated. Abdomen Ultrasound 12/24/24 09:31 IMPRESSION: 1. Diffuse hepatic steatosis. 2. Normal gallbladder with no cholelithiasis or intra-/extrahepatic biliary ductal dilation. Chest X-Ray 12/24/24 17:06 IMPRESSION: No focal infiltrate or effusion. Labs Labs: Laboratory Results - last 24 hr 12/25/24 12/26/24 16:58 06:05 WBC 3.9 L 3.6 L RBC 4.00 L 4.08 L Hgb 13.7 14.0 Hct 40.6 41.6 MCV 101.5 H 102.0 H MCH 34.3 H 34.3 H MCHC 33.7 33.7 RDW 13.8 13.5 Plt Count 115 L 112 L MPV 9.8 10.4 % Immature Plt Fraction 5.3 Sodium 131 L 132 L Potassium 3.2 L 2.6 L* Chloride 95 L 94 L Carbon Dioxide 27 29 Anion Gap 9 9 BUN < 2 L < 2 L Creatinine 0.42 L 0.46 L Estim Creat Clear Calc 181 167 Estimated GFR > 60 > 60 Glucose 99 95 Calcium 8.9 9.0 Total Bilirubin 1.1 1.0 AST 161 H 213 H ALT 90 H 107 H Alkaline Phosphatase 65 59 Total Protein 6.8 6.5 Albumin 3.8 3.7
[2024-12-26 08:00] VITALS: PULSE 84; RESP 14; O2SAT 97
[2024-12-26] MEDS: POTASSIUM CHLORIDE 20 MEQ ER TABLET 40 MEQ PO (08:29)
[2024-12-26] MEDS: MAGNESIUM OXIDE 400 MG TABLET PO (08:29)
[2024-12-26] MEDS: GABAPENTIN 400 MG CAPSULE PO (08:29)
[2024-12-26] MEDS: PROPRANOLOL HCL 10 MG TABLET PO (08:29)
[2024-12-26 11:12] LABS: Potassium 3.2 mmol/L (3.4-5.0)
--- NOTE | 2024-12-26 11:29 | P.DS_ITS ---
DS: Admitting Diagnosis Discharge Date 12/26/2024 Admitting Diagnosis Acute pancreatitis DS: Discharge Diagnosis Discharge Diagnosis (1) Pancreatitis: Code(s): K85.90 - Acute pancreatitis without necrosis or infection, unspecified Status: Acute Assessment and Plan: * Acute * IVF: LR 125mls/hour * trend lipase, currently: 661 * AST, ALT, total bilirubin. trend LFTs * pain control with Tylenol * Zofran prn for nausea * CTA abd/pelvis/chest: Mild acute pancreatitis about the pancreatic head. Diffuse hepatic steatosis. No other significant findings. * GI consulted, awaiting recs * NPO except Ice chips * Continue IVF hydration * Baseline CXR to prevent fluid overload * Upon recovery - repeat gallbladder sonogram (2) Transaminitis: Code(s): R74.01 - Elevation of levels of liver transaminase levels Status: Acute Assessment and Plan: * AST/ALT 296/135 * RUQ US: Diffuse hepatic steatosis. Normal gallbladder with no cholelithiasis or intra-/extrahepatic biliary ductal dilation. * GI consult pending, awaiting recs * Likely biliary in origin (3) Hypomagnesemia: Code(s): E83.42 - Hypomagnesemia Status: Acute Assessment and Plan: * In ED: Mg 1.4 * Replace with IV mg sulfate * Monitor daily * Replace as needed * /: Mg 1.4 (4) Marijuana use: Code(s): F12.90 - Cannabis use, unspecified, uncomplicated Status: Acute Assessment and Plan: * Likely etiology of n/v * Counseled of cessation/use of moderation (5) Urine test positive: Code(s): Z32.01 - Encounter for test, result positive Status: Acute Assessment and Plan: * + in ED * OB US: No evident gestational sac for which differential would include early , failed or ectopic . Recommend follow-up with serial beta hCGs with repeat imaging as clinically indicated. * Continue with serial beta hCGs DS: Summary Hospital Course Reason for hospitalization: Nausea/Vomiting/Diarrhea Hospital Course: Dorcas Wilder is a 34-year-old female with a past medical history of marijuana use who presents to the hospital with nausea, vomiting, and abdominal pain for the past several days. Patient states that the abdominal pain is more located on the right lower side and reports that it radiates to her back. Denies any factors that make it better or worse. Denies any history of gallstones or pancreatitis. Denies any known sick contacts, chest pain, shortness of breath, urinary/bowel changes or complaints. Endorses recreational marijuana use and alcohol use. Reports that she had around 10 alcoholic drinks last week but no drinking this week. D-dimer elevated in the ED, 3.86, along with associated shortness of breath, tachycardia, did obtain a CTA PE chest/abdomen/pelvis. Urine test positive. Beta-hCG is <50, thus elevated and positive but very early. In ED: 97.7? F, 90.2 F, 88 HR , 143/97, 100% room air No leukocytosis, H&H 16.4/40.7 respectively, PLT within normal limits, and again 28, kidney function unremarkable, AST/ALT 296/135, lipase 661 UA: 4+ protein, 4+ ketones, 2+ blood, 11-20 RBC UDS: Positive for cannabinoids EKG: Sinus tachycardia, nonspecific ST and T-wave abnormality. QTC 493 Chest/abdomen/pelvis CTA: Mild acute pancreatitis about the pancreatic head. Diffuse hepatic steatosis. No other significant findings. OB US: No evident gestational sac for which differential would include early , failed or ectopic . Recommend follow-up with serial beta hCGs with repeat imaging as clinically indicated. US abdomen limited: Diffuse hepatic steatosis. Normal gallbladder with no cholelithiasis or intra-/extrahepatic biliary ductal dilation. Gastroenterology consulted regarding acute pancreatitis. Although etiology of pancreatitis is not clear, biliary origin likely the cause given acute transaminase elevation. Stressed importance of adequate perfusion to prevent necrotizing pancreatitis. They recommended continuing IV fluid hydration at 125 cc/hour with Q 8 hour hematocrit monitoring. Baseline chest x-ray was obtained to assess for and prevent fluid overload. This is unremarkable. Abdominal ultrasound obtained which showed diffuse hepatic steatosis, but a normal gallbladder with no cholelithiasis or intra/extrahepatic biliary ductal dilation. Ob ultrasound was also obtained given positive test in the ER, showed no evidence of gestational sac for which differential would include early , failed or ectopic . Recommend following up with her PCP regarding serial beta HCGs with repeat imaging as indicated. Patient was followed throughout hospitalization by GI. She continued to improve clinically, blood work and vital signs remained stable. GI recommends discharging the patient on baclofen 10 mg t.i.d. and follow up with her PCP regarding positive test. Patient is this plan time plan for discharge home at this time. Status at Discharge Functional status at discharge: independent ambulation Overall status at discharge: patient is back to baseline Time Spent with Patient Time attestation: Total time spent providing and/or coordinating discharge services: 45 Exam Narrative: Gen - well appearing female in no acute respiratory distress who is nontoxic- appearing lying semi recumbent in bed HEENT - normocephalic. Atraumatic. Pupils equal round and reactive. Extraocular motions intact. Sclera clear and anicteric. Nares patent. Moist mucous membranes. No facial asymmetry. Neck - neck was supple. No dominant adenopathy, thyromegaly or masses. 2+ carotid upstrokes without bruits. Chest - lungs are clear to auscultation bilaterally. No wheezes or crackles. Breast exam was deferred. CV - heart was regular rate and rhythm. S1-S2. No murmurs gallops or rubs. Abd - Soft, nontender to palpation. Nondistended. Positive bowel sounds. No organomegaly or masses. Ext - no clubbing, cyanosis or edema. 2+ DP pulses bilaterally. Neuro - patient is alert and oriented x4. Strength is 5/5 in both upper and lower extremities. Cranial nerves 2-12 are intact. Speech is clear. Psych - normal mood and affect. Patient is pleasant and cooperative. Skin - warm and dry. No rashes noted. DS: Data Data Completed and Pending Labs on day of discharge: Labs from last 24 hours 12/26/24 12/26/24 12/25/24 11:02 06:05 16:58 WBC 3.6 L 3.9 L RBC 4.08 L 4.00 L Hgb 14.0 13.7 Hct 41.6 40.6 MCV 102.0 H 101.5 H MCH 34.3 H 34.3 H MCHC 33.7 33.7 RDW 13.5 13.8 Plt Count 112 L 115 L MPV 10.4 9.8 % Immature Plt Fraction 5.3 Sodium 132 L 131 L Potassium 3.2 L 2.6 L* 3.2 L Chloride 94 L 95 L Carbon Dioxide 29 27 Anion Gap 9 9 BUN < 2 L < 2 L Creatinine 0.46 L 0.42 L Estim Creat Clear Calc 167 181 Estimated GFR > 60 > 60 Glucose 95 99 Calcium 9.0 8.9 Total Bilirubin 1.0 1.1 AST 213 H 161 H ALT 107 H 90 H Alkaline Phosphatase 59 65 Total Protein 6.5 6.8 Albumin 3.7 3.8 Discharge Plan Discharge Attending physician on discharge: Morgan Martinez Consulting providers: Santino Latham; Ignacio Pinzon Discharging Clinician: Ignacio Pinzon Anticipated Discharge Date/Time: 12/26/24 11:27 Patient Disposition: Home Activity: as tolerated Diet: as tolerated Discharge Instructions: Discharge disposition: Stable Take medications as prescribed Monitor blood pressures Take caution while standing, rising, or moving Change positions slowly taking a break between each position change If you standing feel dizzy sit back down and take a break Encouraged to continue with yearly vaccinations Return to the emergency department if he developed sudden shortness of breath, c hest pain, nausea, vomiting, upset stomach or intractable diarrhea Return to the emergency department if you develop fever greater than 101.5 Follow-up with the primary care physician within 1-2 weeks Thank you for [facility] for your healthcare needs Patient Instructions: Antibiotic Form Patient Language: Kittitian Stand Alone Forms: General Discharge Information Follow-up/Referrals: PHYSICIAN,FISH PEDDLER [Primary Care Provider] - Discharge Medications: New baclofen 10 mg tablet 10 mg PO TID 14 Days Qty: 42 0RF Continued pantoprazole [Protonix] 40 mg tablet,delayed release (DR/EC) 40 mg PO QAM 14 Days Qty: 14 0RF ondansetron 4 mg tablet,disintegrating 4 mg PO Q8H PRN (Reason: nausea and vomiting) Qty: 12 0RF ibuprofen 800 mg tablet 800 mg PO TID PRN (Reason: pain) 7 Days Qty: 21 0RF propranolol 10 mg tablet 10 mg PO TID gabapentin 400 mg capsule 400 mg PO QID naltrexone 50 mg tablet 50 mg PO DAILY Patient Comments: Pt only takes before bed as needed Date of admission: 12/24/24 05:47 Primary Care Provider: PHYSICIAN,FISH PEDDLER Admitting Provider: Sharif Hubbard Attending physician on admission: Sharif Hubbard Condition: Stable
== END 2024-12-26 12:59 | disposition home or self-care (01) ==
LOC: ANHED 12-24 05:47 → ANH3MEDSUR 12-24 08:30
PROVIDERS: Internal Medicine Gastroenterology; Physician Assistant; Admitting Provider Internal Medicine; Emergency Provider Student in an Organized Health Care Education/Training Program; Visit Provider Family Medicine
DX: K85.90 Acute pancreatitis without necrosis or infection, unspecified (principal); R74.01 Elevation of levels of liver transaminase levels; E83.42 Hypomagnesemia; F12.90 Cannabis use, unspecified, uncomplicated; Z32.01 Encounter for pregnancy test, result positive; I10 Essential (primary) hypertension; F17.210 Nicotine dependence, cigarettes, uncomplicated; Z79.899 Other long term (current) drug therapy
CPT/HCPCS: 36415; 71045; 71275; 74177; 76705; 76801; 76817; 80053; 80074; 80307; 81001; 81025; 83690; 83735; 84132; 84443; 84702; 85025; 85027; 85055; 85380; 93005; 96361; 96374; 96375; 96376; 99285; A9270; G0378; J2270; J2405; J7030; J7120; Q9967